=== PATIENT | female | born 1975 | race Caucasian/White ===

== ENCOUNTER 2021-01-28 11:36 | Inpatient (IN) | payer MEDICAID, SELFPAY ==
[2021-01-28] VITALS (8 sets, daily range): BP systolic 113–175; BP diastolic 62–109; PULSE 77–102; RESP 16–18; TEMP 35.8–37.4; O2SAT 95–98; BMI 25.7
--- NOTE | 2021-01-28 12:20 | ED.VIS.GEN ---
History of Present Illness Chief Complaint: Substance Abuse Informant: Patient Narrative: Patient presents requesting detox from alcohol. She states has been drinking regularly for the last for 5 months. She will drink about 1/2 gallon of vodka a day. She states that she does not drink for a day or 2 she will get shaky and nauseated. Her last drink was 2 and half hours ago and states that she feels tired, has a headache, feels shaky, and is nauseated. Patient has never been through detox previously. - Past Medical History (1) Diabetes Status: Chronic Past Medical History - Allergies and Home Meds Allergies/Adverse Reactions: Allergies azithromycin Allergy (Verified 01/28/21 11:38) Hives Primary Care Physician: Sofia Acevedo MD [Primary Care Provider] - Lives: Spouse/ Significant Other Smoking Status: Current every day smoker Review of Systems General: Denies: Chills, Fever Eyes: Denies: Visual changes - bilaterally ENT: Denies: Bilateral ear pain Cardiovascular: Denies: Chest pain Respiratory: Denies: Dyspnea, Cough Gastrointestinal: Reports: Nausea. Denies: Abdominal pain Genitourinary: Denies: Dysuria Musculoskeletal: Denies: Swelling, Extremity Pain Skin: Denies: Rash Neurological: Reports: Headache Hematologic: Denies: Easy bruising, Easy bleeding Allergy: Denies: Uticaria Physical Exam Vital Signs/Narrative: Vital Signs Temp Pulse Resp BP Pulse Ox 01/28/21 11:38 96.5 F L 102 H 18 140/80 H 95 Inital Vital Signs reviewed: Yes General: Well nourished, Well developed Head: Normocephalic Neck: Supple Cardiovascular: Regular rate, Regular rhythm Respiratory: No distress, CTA bilaterally Abdomen: Soft, Nontender, Normal bowel sounds Extremities: Nontender Skin: Normal color Neurological: Alert, Oriented x3 Psychological: Normal affect Diagnostic/Tx/Re-eval Laboratory Results 01/28/21 01/28/21 01/28/21 12:45 12:45 12:45 WBC 8.3 RBC 4.32 Hgb 16.0 H Hct 46.0 MCV 106.5 H MCH 37.0 H MCHC 34.8 RDW Std Deviation 48.1 H RDW Coeff of Chucho 12.0 Plt Count 242 MPV 9.2 Immature Gran % (Auto) 0.700 Neut % (Auto) 50.4 Lymph % (Auto) 39.2 [place] % (Auto) 6.5 Eos % (Auto) 1.9 Baso % (Auto) 1.3 H Absolute Neuts (auto) 4.2 Absolute Lymphs (auto) 3.27 Nucleated RBC % 0 Sodium 138 Potassium 3.8 Chloride 103 Carbon Dioxide 25.0 Anion Gap 10 BUN 7 Creatinine 0.51 L Estim Creat Clear Calc 117.76 Est GFR (MDRD) Af Amer 165 Est GFR (MDRD) Non-Af 137 BUN/Creatinine Ratio 13.7 Glucose 136 H Calcium 9.3 Total Bilirubin 0.40 AST 179 H ALT 113 H Alkaline Phosphatase 110 Total Protein 8.4 H Albumin 3.7 Globulin 4.7 H Albumin/Globulin Ratio 0.8 L Serum , Qual Urine Opiates Screen Urine Methadone Screen Ur Barbiturates Screen Ur Phencyclidine Scrn Ur Amphetamines Screen U Methamphetamin-MDMA U Benzodiazepines Scrn Urine Cocaine Screen U Cannabinoids Screen Ur Drug Screen Comment Ethyl Alcohol 17.0 01/28/21 01/28/21 12:45 13:10 WBC RBC Hgb Hct MCV MCH MCHC RDW Std Deviation RDW Coeff of Chucho Plt Count MPV Immature Gran % (Auto) Neut % (Auto) Lymph % (Auto) [place] % (Auto) Eos % (Auto) Baso % (Auto) Absolute Neuts (auto) Absolute Lymphs (auto) Nucleated RBC % Sodium Potassium Chloride Carbon Dioxide Anion Gap BUN Creatinine Estim Creat Clear Calc Est GFR (MDRD) Af Amer Est GFR (MDRD) Non-Af BUN/Creatinine Ratio Glucose Calcium Total Bilirubin AST ALT Alkaline Phosphatase Total Protein Albumin Globulin Albumin/Globulin Ratio Serum , Qual NEGATIVE Urine Opiates Screen NEGATIVE Urine Methadone Screen NEGATIVE Ur Barbiturates Screen NEGATIVE Ur Phencyclidine Scrn NEGATIVE Ur Amphetamines Screen NEGATIVE U Methamphetamin-MDMA NEGATIVE U Benzodiazepines Scrn NEGATIVE Urine Cocaine Screen NEGATIVE U Cannabinoids Screen NEGATIVE Ur Drug Screen Comment Ethyl Alcohol - Medical Decision Making Patient was given Zofran and Ativan to help with her symptoms here. Blood work is obtained. She does have elevation in her liver function test. Patient has agreed to the requirements for detox on the floor. Patient will be discussed with the hospitalist. ED Disposition - Plan for ED Patient: Disposition: Acute Care Hospital [facility] Diagnosis: Desire for detoxification, Alcohol abuse Referrals: Sofia Acevedo MD [Primary Care Provider] -
[2021-01-28 12:57] LABS: Absolute Lymphocyte Count 3.27 X10^3/uL (0.83-4.51); Absolute Neutrophil Count 4.2 X10^3/uL (2.0-7.7); Basophil# 0.11 X10^3/uL; Basophil% 1.3 % (0-1); Eosinophil# 0.16 X10^3/uL; Eosinophils% 1.9 % (0-5); Lymphocyte # 3.27 X10^3/ul (4.0); Lymphocyte % 39.2 % (19-41); Mean Corp Hgb Conc 34.8 g/dL (32-36); Mean Corpuscular Volume 106.5 fL (81-99); Mean Platelet Vol. 9.2 fl (6.2-12.0); Monocyte# 0.54 X10^3/uL; Monocyte% 6.5 % (0-10); NRBC Flagged by Analyzer 0 % (0-5); Neutrophil % 50.4 % (47-70); Platelet Count 242 K/mm3 (150-450); RBC Distribution Width SD 48.1 fl (35.1-43.9); Red Blood Count 4.32 M/mm3 (4.2-5.4); White Blood Count 8.3 K/mm3 (4.4-11.0)
[2021-01-28 13:11] LABS: ALB/GLOB Ratio 0.8 RATIO (0.9-2.4); AST(SGOT) 179 U/L (15-37); Alanine Aminotransfer ALT/SGPT 113 U/L (13-56); Albumin, Serum 3.7 g/dL (3.2-5.0); Alkaline Phosphatase 110 U/L (45-117); Anion Gap 10 (5-15); BUN 7 mg/dL (7-18); BUN/Creat Ratio 13.7 RATIO (10-20); Calcium,Total 9.3 mg/dL (8.5-10.1); Chloride 103 mmol/L (98-107); Creatinine, Serum 0.51 mg/dL (0.55-1.02); EST Glomerular Filtration Rate 137 mL/min (>60); Est Glom Filt Rate - Afr Amer 165 mL/min (>60); Estimated Creatinine Clearance 117.76 ml/min; Globulin 4.7 g/dL (2.2-4.2); Glucose 136 mg/dL (74-106); Potassium 3.8 mmol/L (3.5-5.1); Protein, Total 8.4 g/dL (6.4-8.2); Sodium Level 138 mmol/L (136-145)
[2021-01-28 13:26] LABS: Internal QC Validated? YES +Cl - CLEAR BKGD
[2021-01-28 13:30] LABS: Pregnancy, Serum, hCG Quali. NEGATIVE Negative
[2021-01-28 13:30] LABS: Amphetamine Urine VISTA NEGATIVE (<1000 ng/mL); Barbiturate Urine VISTA NEGATIVE (< 200 ng/mL); Benzodiazepine Urine VISTA NEGATIVE (< 200 ng/mL); Cocaine Urine VISTA NEGATIVE (< 300 ng/mL); Ecstacy Urine VISTA NEGATIVE (< 500 ng/mL); Methadone Urine VISTA NEGATIVE (< 300 ng/mL); PCP Urine VISTA NEGATIVE (< 25 ng/mL); THC Urine VISTA NEGATIVE (< 50 ng/mL); Vista UDS pH Range 5
[2021-01-28] MEDS: LORazepam 2 MG/ML Syringe 1 MG IV (13:46)
[2021-01-28] MEDS: Ondansetron 4 MG/2 ML Vial IV (13:46)
--- NOTE | 2021-01-28 14:50 | HP.PCM_ITS ---
Problem List (1) Acute alcohol withdrawal Status: Acute (2) Tobacco abuse Status: Chronic (3) Alcohol abuse Status: Chronic (4) Type 2 diabetes mellitus Status: Chronic History of Present Illness Date of Admission: 01/28/21 Chief Complaint: Requesting admission for acute alcohol withdrawal. The patient is a 45 year old F with past medical history as mentioned above presented to the emergency room requesting admission for acute alcohol withdrawal for medical stabilization. Patient states that she has been drinking half a gallon of vodka every day for the last 5 months. Before that, she has been using for long time but intermittently. Her last drink was this morning around 7 AM. She complained of restlessness, associated with abdominal cramps without nausea or vomiting. She never went into detox program before. She denied use of street drugs. She had history of type 2 diabetes mellitus, has been on Metformin but she mentioned that her blood glucose has been high lately because she has been drinking every day. In the emergency department, her vital signs were stable. Her routine blood work was unremarkable. LFT revealed slight elevated liver transaminases, bilirubin and alk phos are normal. Serum test was negative. Urine drug screen was negative. Blood alcohol level was 17. She is being admitted for acute alcohol withdrawal for medical stabilization. Past Medical History Past Medical History (Chronic Problems): Chronic Problems Tobacco abuse (Chronic) Alcohol abuse (Chronic) Type 2 diabetes mellitus (Chronic) Allergies azithromycin Allergy (Verified 01/28/21 11:38) Hives Home Medications: Ambulatory Orders Medication Instructions Recorded Metformin HCl 1,000 mg PO DAILY 01/28/21 Surgical History: cholecystectomy, - - Tubal ligation. Psychiatric History: No pertinent psych hx [employer] History: No pertinent [employer] history Lives: Spouse/ Significant Other Smoking Status: Current every day smoker Tobacco Use: Cigarettes Alcohol: Heavy Drugs: None - *Family History Maternal History Items: No pertinent history Paternal History Items: No pertinent history Review of Systems Constitutional: Denies: Anorexia, Chills, Fever, Weakness Eyes: Denies: Blurred vision, Double vision, Drainage, Redness HEENT: Denies: Difficulty Hearing, Ear Pain, Eye Pain, Nasal Congestion, Sore Throat Cardiovascular: Denies: Chest Pain, Claudication, Chest Tightness, Heaviness, Palpitations, Syncope Respiratory: Denies: Cough, Hemoptysis, Shortness of Breath, Sputum production, Wheezing Gastrointestinal: Reports: Nausea. Denies: Abdominal Pain, Constipation, Diarrhea, Vomiting Genitourinary: Denies: Dysuria, Frequency, Hematuria Musculoskeletal: Denies: Arm Pain, Back Pain, Foot Pain Skin: Denies: Dryness, Rash Neurological: Denies: Balance problems, Double vision, Change in Speech, Slurred speech, Confusion, Headaches, Incoordination Psychiatric: Denies: Anxiety, Depression Endocrine: Denies: Change in Body Habitus, Polydipsia, Polyuria VTE Information - Inpt Only VTE Present on Admission: No VTE Mechan Device Prophylaxis: None VTE Pharm Prophylaxis ordered?: No - Physical Exam Vitals/I&O's: Vital Signs Temp Pulse Resp BP Pulse Ox 98.5 F 77 16 121/72 H 97 01/28/21 13:21 01/28/21 13:50 01/28/21 13:50 01/28/21 13:50 01/28/21 13:50 Oxygen Delivery Method Room Air Weight: 150 lb Body Mass Index (BMI) 25.7 General: Alert, Oriented x3, Cooperative, No apparent distress HEENT: Atraumatic, PERRLA, EOMI, Normocephalic Oral: Moist Mucosa, No Gingival or Mucosal Lesions/ Ulcerations Neck: Supple, No JVD, Negative Carotid Bruits, Trachea Midline, Thyroid Normal Size and Texture Lungs: Clear to auscultation, Normal air movement, No rhonchi, No wheeze, No rales Cardiovascular: Regular rate, Regular Rhythm, Normal S1, Normal S2, PMI Normal Abdomen: Bowel Sounds Present, Soft, Non Tender, Non-Distended, No Hepato- splenomegaly Extremities: No clubbing, No cyanosis, No edema Skin: No rashes, No breakdown Lymphatic: No Cervical, Supraclavicular, or Inguinal Adenopathy Neurological: Cranial nerves II-XII grossly intact, Motor Exam 5/5 strength throughout Psych/Mental Status: Normal Affect, Appropriate, Alert and oriented to time, place, person, mood and affect Laboratory Results 01/28/21 12:45: WBC 8.3, RBC 4.32, Hgb 16.0 H, Hct 46.0, MCV 106.5 H, MCH 37.0 H , MCHC 34.8, RDW Std Deviation 48.1 H, RDW Coeff of Chucho 12.0, Plt Count 242, MPV 9.2, Immature Gran % (Auto) 0.700, Neut % (Auto) 50.4, Lymph % (Auto) 39.2, [place] % (Auto) 6.5, Eos % (Auto) 1.9, Baso % (Auto) 1.3 H, Absolute Neuts (auto) 4.2, Absolute Lymphs (auto) 3.27, Nucleated RBC % 0 01/28/21 12:45: Sodium 138, Potassium 3.8, Chloride 103, Carbon Dioxide 25.0, Anion Gap 10, BUN 7, Creatinine 0.51 L, Estim Creat Clear Calc 117.76, Est GFR (MDRD) Af Amer 165, Est GFR (MDRD) Non-Af 137, BUN/Creatinine Ratio 13.7, Glucose 136 H, Calcium 9.3, Total Bilirubin 0.40, AST 179 H, ALT 113 H, Alkaline Phosphatase 110, Total Protein 8.4 H, Albumin 3.7, Globulin 4.7 H, Albumin/Globulin Ratio 0.8 L 01/28/21 12:45: Ethyl Alcohol 17.0 01/28/21 12:45: Serum , Qual NEGATIVE 01/28/21 13:10: Urine Opiates Screen NEGATIVE, Urine Methadone Screen NEGATIVE, Ur Barbiturates Screen NEGATIVE, Ur Phencyclidine Scrn NEGATIVE, Ur Amphetamines Screen NEGATIVE, U Methamphetamin-MDMA NEGATIVE, U Benzodiazepines Scrn NEGATIVE, Urine Cocaine Screen NEGATIVE, U Cannabinoids Screen NEGATIVE, Ur Drug Screen Comment Assessment/Plan All Active Problems Acute alcohol withdrawal (Acute) This is a 45 years old female patient presented to the emergency room requesting admission for acute alcohol withdrawal for medical stabilization. #1 acute alcohol withdrawal: Blood alcohol level is 17, last drink was this morning. Urine drug screen was negative. LFT revealed slight elevated liver transaminases secondary to alcoholism. Plan: Admit to MedSurg floor, initiate alcohol withdrawal protocol with tapering phenobarbital, thiamine and folic acid supplement, as needed Bentyl, Neurontin, Vistaril, ibuprofen, Imodium, Zofran and trazodone, consult 180 program. #2 type 2 diabetes mellitus: ADA diet, Accu-Cheks, insulin sliding scale, continue Metformin, check hemoglobin A1c. #3 tobacco abuse: NicoDerm patch. #4 DVT prophylaxis: Low risk patient, no prophylaxis indicated. This note was generated with Maria T dictation software. It may contain incorrect words, spelling, and punctuation that were not noted in checking the note before signing. Inpatient E&M: 33504 Init Hosp L2
--- NOTE | 2021-01-28 15:01 | NURSING ---
MED SURG DAVID DESIRE FOR DETOX, ALCOHOL ABUSE
--- NOTE | 2021-01-28 15:05 | CM.ED ---
SOCIAL WORK Referral Source: Dr. Trujillo Reason for Consult: Substance Abuse-requesting alcohol detox Met with patient in room. Patient reports significant other just completed detox and patient decided it's my turn. Patient states last drink was this morning prior to arrival. Education provided on RAMP. Call to [facility] to update on admission to [facility]. Plan: MARIE Guerrero MSW, [employer]
[2021-01-28] MEDS: Phenobarbital 32.4 MG Tablet 64.8 MG PO ×2 (16:20→19:44)
[2021-01-28 16:31] LABS: Bedside Glucose 140 mg/dL (70-110)
[2021-01-28 20:23] LABS: Hemoglobin A1c 5.7 % (3.8-5.6)
[2021-01-28] MEDS: Insulin Lispro 100 UNIT/ML INSULN.PEN SC (22:18)
[2021-01-28 23:36] LABS: Bedside Glucose 175 mg/dL (70-110)
[2021-01-29] MEDS: Phenobarbital 32.4 MG Tablet 64.8 MG PO ×6 (00:15→19:57)
[2021-01-29 03:10] VITALS: BP 120/81; PULSE 71; RESP 16; TEMP 36.7; O2SAT 96
[2021-01-29 06:00] VITALS: BP 132/81; PULSE 70; RESP 16; TEMP 36.9; O2SAT 98
[2021-01-29] MEDS: Ibuprofen 600 MG Tablet PO ×2 (06:35→19:57)
[2021-01-29] MEDS: hydrOXYzine PAM 25 MG Capsule 50 MG PO ×3 (06:36→19:57)
[2021-01-29] MEDS: Insulin Lispro 100 UNIT/ML INSULN.PEN SC ×4 (06:37→20:01)
[2021-01-29 06:55] LABS: Bedside Glucose 193 mg/dL (70-110)
[2021-01-29 09:20] VITALS: BP 112/65; PULSE 80; RESP 16; TEMP 36.8; O2SAT 92
--- NOTE | 2021-01-29 09:25 | NURSING ---
pt states she has received her first dose of COVID moderna vaccine on January 17, 2021 and is due for second shot on February 07 2021.
[2021-01-29] MEDS: metFORMIN HCl 1,000 MG Tablet 1000 MG PO (09:29)
[2021-01-29] MEDS: Gabapentin 300 MG Capsule PO (09:29)
[2021-01-29] MEDS: Thiamine Hydrochloride 100 MG Tablet PO (09:30)
[2021-01-29] MEDS: Folic Acid 1 MG Tablet PO (09:30)
[2021-01-29 11:40] LABS: Bedside Glucose 191 mg/dL (70-110)
[2021-01-29 12:37] VITALS: BP 112/66; PULSE 79; RESP 16; TEMP 36.8; O2SAT 96
[2021-01-29] MEDS: Dicyclomine 10 MG Capsule 20 MG PO ×2 (12:41→19:56)
--- NOTE | 2021-01-29 15:20 | PCM.PN.HOSP ---
Patient Problems: Active and Suspected Problems Desire for detoxification (Acute) Alcohol abuse (Acute) Acute alcohol withdrawal (Acute) Subjective: Seen early this morning. She states she still feeling jittery and agitated. Reports that she has been drinking very heavily with approximately 1/2 gallon of alcohol a day over the last 4 months. She reports that she had not been a heavy drinker prior to this but her fianc? was a heavy drinker and with Covid she just started drinking. Her fianc? is now clean and she states she has the desire to stay sober as well. Vitals/I&O's: Vital Signs Temp Pulse Resp BP Pulse Ox 98.2 F 79 16 112/66 96 01/29/21 12:37 01/29/21 12:37 01/29/21 12:37 01/29/21 12:37 01/29/21 12:37 Oxygen Delivery Method Room Air Weight: 68 kg Body Mass Index (BMI) 25.7 General: Alert, Oriented x3, Cooperative, No apparent distress, Well developed, Well nourished, - - Middle-aged white female who appears older than stated age, lying in bed, no obvious tremor or agitation HEENT: Atraumatic, Normocephalic Oral: Moist Mucosa Lungs: No rhonchi, No wheeze, No rales, Diminished Cardiovascular: Regular rate, Regular Rhythm, Normal S1, Normal S2 Abdomen: Bowel Sounds Present, Soft, Non Tender, Non-Distended Extremities: No clubbing, No cyanosis, No edema, Capillary Refill Less than 3 Seconds, Peripheral Pulses Normal Neurological: Cranial nerves II-XII grossly intact, Neuro grossly intact, - - No tremor noted Psych/Mental Status: Appropriate, Flat Affect Laboratory Results 01/28/21 12:45: Hemoglobin A1c 5.7 H 01/28/21 16:24: POC Glucose 140 H 01/28/21 22:13: POC Glucose 175 H 01/29/21 06:30: POC Glucose 193 H 01/29/21 11:25: POC Glucose 191 H Current Medications Dicyclomine HCl (Dicyclomine 10 Mg Capsule) 20 mg PO Q6H PRN PRN PRN Reason: abdominal discomfort Last Admin: 01/29/21 12:41 Dose: 20 mg Documented by: Folic Acid (Folic Acid 1 Mg Tablet) 1 mg PO DAILY@0800 FLORES Last Admin: 01/29/21 09:30 Dose: 1 mg Documented by: Gabapentin (Gabapentin 300 Mg Capsule) 300 mg PO Q8H PRN PRN PRN Reason: moderate to severe anxiety Last Admin: 01/29/21 09:29 Dose: 300 mg Documented by: Hydroxyzine Pamoate (Hydroxyzine Kortney 25 Mg Capsule) 50 mg PO Q4H PRN PRN PRN Reason: mild anxiety Last Admin: 01/29/21 12:41 Dose: 50 mg Documented by: Ibuprofen (Ibuprofen 600 Mg Tablet) 600 mg PO Q8H PRN PRN PRN Reason: PAIN 1-07/27 Last Admin: 01/29/21 06:35 Dose: 600 mg Documented by: Insulin Human Lispro (Insulin Lispro 100 Unit/Ml Insuln.Pen) 0 unit SC [facility]; Protocol Last Admin: 01/29/21 12:42 Dose: 1 unit Documented by: Loperamide HCl (Loperamide 2 Mg Capsule) 2 mg PO Q4H PRN PRN PRN Reason: LOOSE STOOLS Metformin HCl ([facility] Hcl 1,000 Mg Tablet) [facility] Last Admin: 01/29/21 09:29 Dose: 1,000 mg Documented by: Nicotine (Nicotine 21 Mg Patch) 21 mg TD DAILY [facility] Last Admin: 01/29/21 09:29 Dose: 21 mg Documented by: Ondansetron HCl (Ondansetron 8 Mg Tablet) 8 mg PO Q8H PRN PRN PRN Reason: NAUSEA Phenobarbital (Phenobarbital 32.4 Mg Tablet) 97.2 mg PO Q4H [facility]; Taper Stop: 02/01/21 23:59 Last Admin: 01/29/21 12:41 Dose: 97.2 mg Documented by: Sodium Chloride (0.9% Saline Lock 10 Ml Syringe) 10 - 40 ml IV UD PRN PRN Reason: SALINE FLUSH Thiamine HCl ([facility] Hydrochloride 100 Mg Tablet) [facility] Last Admin: 01/29/21 09:30 Dose: 100 mg Documented by: Trazodone HCl (Trazodone 100 Mg Tablet) 100 mg PO QHS PRN PRN Reason: INSOMNIA STROKE Vital Signs/Narrative: Vital Signs Temp Pulse Resp BP Pulse Ox 01/29/21 12:37 98.2 F 79 16 112/66 96 Medical Necessity - Tobacco Use Smoking Status: Current every day smoker Tobacco Use: Cigarettes Assessment/Plan All Active Problems Desire for detoxification (Acute) Alcohol abuse (Acute) Acute alcohol withdrawal (Acute) Acute alcohol withdrawal -Continue phenobarbital taper -Continue thiamine and folic acid -Continue supportive medications -180 will be in to evaluate patient Transaminitis -Pattern is consistent with alcoholic hepatitis -Repeat LFTs in a.m. Insulin resistance -Hemoglobin A1c was drawn and was 5.7 -Per patient she has been on Metformin in the past -With her history of alcoholism currently this may not be the best choice of drug and I would recommend diet control at this time -Change diet to carb control Tobacco abuse -Recommend cessation -Continue nicotine patch DVT prophylaxis -Low risk -Early ambulation protocol Inpatient E&M: 05226 Subs Hosp L2
[2021-01-29 16:27] VITALS: BP 111/73; PULSE 71; RESP 16; TEMP 36.9; O2SAT 95
[2021-01-29 16:35] LABS: Bedside Glucose 169 mg/dL (70-110)
[2021-01-29 20:06] VITALS: BP 114/74; PULSE 75; RESP 16; TEMP 36.1; O2SAT 99
[2021-01-29 20:31] LABS: Bedside Glucose 171 mg/dL (70-110)
[2021-01-30] MEDS: Phenobarbital 32.4 MG Tablet 64.8 MG PO ×6 (00:32→20:12)
[2021-01-30] MEDS: hydrOXYzine PAM 25 MG Capsule 50 MG PO ×2 (03:22→15:09)
[2021-01-30 03:24] VITALS: BP 102/64; PULSE 63; RESP 16; TEMP 36.2; O2SAT 96
[2021-01-30] MEDS: Insulin Lispro 100 UNIT/ML INSULN.PEN SC ×2 (06:33→21:48)
[2021-01-30 06:40] LABS: Bedside Glucose 156 mg/dL (70-110)
[2021-01-30 09:01] VITALS: BP 108/65; PULSE 72; RESP 16; TEMP 36.8; O2SAT 96
[2021-01-30] MEDS: metFORMIN HCl 1,000 MG Tablet 1000 MG PO (09:04)
[2021-01-30] MEDS: Thiamine Hydrochloride 100 MG Tablet PO (09:04)
[2021-01-30] MEDS: Folic Acid 1 MG Tablet PO (09:04)
--- NOTE | 2021-01-30 09:45 | ADDICTION ---
This inspector automatic typewriter met with PT to conduct ASAM, MSE, AUDIT assessments and to plan for d/c. PT A+Ox4. All assessments completed, faxed to [facility] and placed in PT's chart. PT refused d/c coordination. PT to d/c home with follow-up plans in place.
[2021-01-30 12:36] LABS: Bedside Glucose 126 mg/dL (70-110)
[2021-01-30 15:01] VITALS: BP 113/69; PULSE 83; RESP 16; TEMP 36.8; O2SAT 94
--- NOTE | 2021-01-30 16:25 | PN_ITS ---
Patient Problems: Active and Suspected Problems Desire for detoxification (Acute) Alcohol abuse (Acute) Acute alcohol withdrawal (Acute) Subjective: Indicates she is feeling better today. Still not back to baseline. Reports she needs a new nicotine patch placed as her fell off overnight. Vitals/I&O's: Vital Signs Temp Pulse Resp BP Pulse Ox 98.3 F 83 16 113/69 94 01/30/21 15:01 01/30/21 15:01 01/30/21 15:01 01/30/21 15:01 01/30/21 15:01 Oxygen Delivery Method Room Air Weight: 68 kg Body Mass Index (BMI) 25.7 General: Alert, Oriented x3, Cooperative, No apparent distress, Well developed, Well nourished, - - Middle-aged white female who appears older than stated age, lying in bed, appears comfortable, no tremor HEENT: Atraumatic, Normocephalic Oral: Moist Mucosa Neck: Supple, Trachea Midline Lungs: No rhonchi, No wheeze, No rales, Diminished Cardiovascular: Regular rate, Regular Rhythm, Normal S1, Normal S2, No murmurs, No Ectopic Activity, No rub noted, No Gallop Abdomen: Bowel Sounds Present, Soft, Non Tender, Non-Distended Extremities: No clubbing, No cyanosis, No edema, Capillary Refill Less than 3 Seconds, Peripheral Pulses Normal Neurological: Cranial nerves II-XII grossly intact, Neuro grossly intact Psych/Mental Status: Appropriate, Flat Affect Laboratory Results 01/29/21 16:25: POC Glucose 169 H 01/29/21 20:00: POC Glucose 171 H 01/30/21 06:32: POC Glucose 156 H 01/30/21 12:28: POC Glucose 126 H Current Medications Dicyclomine HCl (Dicyclomine 10 Mg Capsule) 20 mg PO Q6H PRN PRN PRN Reason: abdominal discomfort Last Admin: 01/29/21 19:56 Dose: 20 mg Documented by: Folic Acid (Folic Acid 1 Mg Tablet) 1 mg PO DAILY@0800 FLORES Last Admin: 01/30/21 09:04 Dose: 1 mg Documented by: Gabapentin (Gabapentin 300 Mg Capsule) 300 mg PO Q8H PRN PRN PRN Reason: moderate to severe anxiety Last Admin: 01/29/21 09:29 Dose: 300 mg Documented by: Hydroxyzine Pamoate (Hydroxyzine Kortney 25 Mg Capsule) 50 mg PO Q4H PRN PRN PRN Reason: mild anxiety Last Admin: 01/30/21 15:09 Dose: 50 mg Documented by: Ibuprofen (Ibuprofen 600 Mg Tablet) 600 mg PO Q8H PRN PRN PRN Reason: PAIN 1-07/27 Last Admin: 01/29/21 19:57 Dose: 600 mg Documented by: Insulin Human Lispro (Insulin Lispro 100 Unit/Ml Insuln.Pen) 0 unit SC [facility]; Protocol Last Admin: 01/30/21 12:30 Dose: Not Given Documented by: Loperamide HCl (Loperamide 2 Mg Capsule) 2 mg PO Q4H PRN PRN PRN Reason: LOOSE STOOLS Metformin HCl (Metformin Hcl 1,000 Mg Tablet) [facility] Last Admin: 01/30/21 09:04 Dose: 1,000 mg Documented by: Nicotine (Nicotine 21 Mg Patch) 21 mg TD DAILY [facility] Last Admin: 01/30/21 09:04 Dose: 21 mg Documented by: Ondansetron HCl (Ondansetron 8 Mg Tablet) 8 mg PO Q8H PRN PRN PRN Reason: NAUSEA Phenobarbital (Phenobarbital 32.4 Mg Tablet) 64.8 mg PO Q4H [facility]; Taper Stop: 02/01/21 23:59 Last Admin: 01/30/21 12:30 Dose: 64.8 mg Documented by: Sodium Chloride (0.9% Saline Lock 10 Ml Syringe) 10 - 40 ml IV UD PRN PRN Reason: SALINE FLUSH Thiamine HCl (Thiamine Hydrochloride 100 Mg Tablet) [facility] Last Admin: 01/30/21 09:04 Dose: 100 mg Documented by: Trazodone HCl (Trazodone 100 Mg Tablet) 100 mg PO QHS PRN PRN Reason: INSOMNIA STROKE Vital Signs/Narrative: Vital Signs Temp Pulse Resp BP Pulse Ox 01/30/21 15:01 98.3 F 83 16 113/69 94 Medical Necessity - Tobacco Use Smoking Status: Current every day smoker Tobacco Use: Cigarettes Assessment/Plan All Active Problems Desire for detoxification (Acute) Alcohol abuse (Acute) Acute alcohol withdrawal (Acute) Acute alcohol withdrawal -Continue phenobarbital taper--> currently on 64.8 mg every 4 hours -Continue thiamine and folic acid -Continue supportive medications -180 saw pt and she refused d/c coordination Transaminitis -Pattern is consistent with alcoholic hepatitis -Repeat LFTs in a.m. Insulin resistance -Hemoglobin A1c was drawn and was 5.7 -Per patient she has been on Metformin in the past -With her history of alcoholism currently this may not be the best choice of drug and I would recommend diet control at this time -Change diet to carb control Tobacco abuse -Recommend cessation -Continue nicotine patch DVT prophylaxis -Low risk -Early ambulation protocol Disposition Probable discharge in next 24 to 48 hours Inpatient E&M: 51556 Subs Hosp L2
[2021-01-30 16:40] LABS: Bedside Glucose 141 mg/dL (70-110)
[2021-01-30 20:53] VITALS: BP 116/66; PULSE 79; RESP 16; TEMP 37; O2SAT 97
[2021-01-30] MEDS: Ibuprofen 600 MG Tablet PO (21:47)
[2021-01-30] MEDS: traZODone 100 MG Tablet PO (21:48)
[2021-01-30 21:56] LABS: Bedside Glucose 237 mg/dL (70-110)
[2021-01-31] MEDS: Phenobarbital 32.4 MG Tablet 64.8 MG PO ×3 (00:35→11:41)
[2021-01-31 02:30] VITALS: BP 110/67; PULSE 78; RESP 16; TEMP 36.6; O2SAT 96
[2021-01-31 06:43] VITALS: BP 101/59; PULSE 61; RESP 16; TEMP 36.6; O2SAT 96
[2021-01-31 06:45] LABS: Bedside Glucose 141 mg/dL (70-110)
[2021-01-31] MEDS: Thiamine Hydrochloride 100 MG Tablet PO (08:21)
[2021-01-31] MEDS: metFORMIN HCl 1,000 MG Tablet 1000 MG PO (08:21)
[2021-01-31] MEDS: Folic Acid 1 MG Tablet PO (08:21)
[2021-01-31 11:30] VITALS: BP 104/68; PULSE 71; RESP 18; TEMP 36.7; O2SAT 97
--- NOTE | 2021-01-31 11:37 | DCINST_ITS ---
- Discharge Diagnoses Current Active Problems: Current Active and Chronic Problems Desire for detoxification (Acute) Alcohol abuse (Acute) Acute alcohol withdrawal (Acute) Tobacco abuse (Chronic) Alcohol abuse (Chronic) Type 2 diabetes mellitus (Chronic) You will use the following diet at home:: Calorie/Carbohydrate Controlled (specify 1200, 1400, etc) Your food should be the consistency of: Regular Your liquids should be the consistency of: Regular/Thin Discharge Activity: Return to Normal Activity, No Restrictions Allergies/Adverse Reactions: Allergies azithromycin Allergy (Verified 01/28/21 11:38) Hives Medications to take at Discharge Metformin HCl 1,000 mg PO DAILY 01/28/21 Primary Care Physician: Sofia Acevedo MD [Primary Care Provider] - Please follow up with your Primary Care Physician in: As needed Test Results: Test results from this visit will be discussed in further detail at your follow- up appointment, if applicable.
--- NOTE | 2021-01-31 11:41 | DS.PCM_ITS ---
Discharge Date and Diagnosis - Problem List Patient Problems: Active and Suspected Problems Desire for detoxification (Acute) Alcohol abuse (Acute) Acute alcohol withdrawal (Acute) Date of Admission: 01/28/21 Date of Discharge: 01/31/21 - Primary Discharge Diagnosis Acute Problems: Active Problems Desire for detoxification (Acute) Alcohol abuse (Acute) Acute alcohol withdrawal (Acute) - Secondary Discharge Diagnosis Chronic Problems: Chronic Problems Tobacco abuse (Chronic) Alcohol abuse (Chronic) Type 2 diabetes mellitus (Chronic) Hospital Course and Treatment Imaging Results: None Addiction medicine Operations: None Procedures: None Summary of Care Provided: Ms. Williamson is a 45-year-old female with a past medical history of diabetes, tobacco abuse, and alcohol abuse presented to the emergency department at [facility] on 01/28/2021 requesting admission for acute alcohol detox/withdrawal. On admission she stated that she had been drinking at least a half a gallon of vodka every day for the last 4 to 5 months. Before that she had been a longtime intermittent user of alcohol but nothing significant. Her last drink was on the day of admission at around 7 AM. On admission she complained of restlessness, abdominal cramping without nausea or vomiting and tremor. She had never been through detox before. She denied any other substance abuse but does admit to smoking tobacco. Alcohol on the admission was 17 and her tox screen was negative for any other substances. She was admitted to the medical surgical floor and started on a phenobarb taper with supportive medications. She was seen by [facility] addiction medicine and declined help from them. She tells me she will follow-up with her friends who are very supportive in her mormonism. She requested to be discharged on 01/31/2021 and states she was really having any further symptoms of withdrawal. She had completed phenobarb taper until the point where she was on 64.8 mg every 6 hours. I suspect she will do well overall with the long half-life of phenobarbital but instructed her if she has any further issues to please come back and get help. Discharge diagnoses Acute alcohol withdrawal Alcoholic hepatitis DM-2 Tobacco abuse Patient Problems: Active and Suspected Problems Desire for detoxification (Acute) Alcohol abuse (Acute) Acute alcohol withdrawal (Acute) Subjective: Patient states she is feeling well. Denies tremor, nausea, vomiting. No further abdominal cramping. She states she feels anxious about going home but no anxiety related to withdrawal any further. She indicates that she will follow up with her mormonism and friends for support and declines any help from [facility]. - Physical Exam Vitals/I&O's: Vital Signs Temp Pulse Resp BP Pulse Ox 98.0 F 71 18 104/68 97 01/31/21 11:30 01/31/21 11:30 01/31/21 11:30 01/31/21 11:30 01/31/21 11:30 Oxygen Delivery Method Room Air Weight: 68 kg Body Mass Index (BMI) 25.7 General: Alert, Oriented x3, Cooperative, No apparent distress, Well developed, Well nourished, - - Middle-aged white female lying in bed, appears comfortable, appears older than stated age HEENT: Atraumatic, Normocephalic Oral: Moist Mucosa Neck: Supple, Trachea Midline Lungs: Clear to auscultation, No rhonchi, No wheeze, No rales, Diminished Cardiovascular: Regular rate, Regular Rhythm, Normal S1, Normal S2, No murmurs, No Ectopic Activity, No rub noted, No Gallop Abdomen: Bowel Sounds Present, Soft, Non Tender, Non-Distended, No Hepato- splenomegaly Extremities: No clubbing, No cyanosis, No edema, Capillary Refill Less than 3 Seconds, Peripheral Pulses Normal Neurological: Cranial nerves II-XII grossly intact, Neuro grossly intact Psych/Mental Status: Normal Affect, Appropriate Laboratory Results 01/30/21 12:28: POC Glucose 126 H 01/30/21 16:30: POC Glucose 141 H 01/30/21 21:43: POC Glucose 237 H 01/31/21 06:38: POC Glucose 141 H Current Medications Dicyclomine HCl (Dicyclomine 10 Mg Capsule) 20 mg PO Q6H PRN PRN PRN Reason: abdominal discomfort Last Admin: 01/29/21 19:56 Dose: 20 mg Documented by: Folic Acid (Folic Acid 1 Mg Tablet) 1 mg PO DAILY@0800 FLORES Last Admin: 01/31/21 08:21 Dose: 1 mg Documented by: Gabapentin (Gabapentin 300 Mg Capsule) 300 mg PO Q8H PRN PRN PRN Reason: moderate to severe anxiety Last Admin: 01/29/21 09:29 Dose: 300 mg Documented by: Hydroxyzine Pamoate (Hydroxyzine Kortney 25 Mg Capsule) 50 mg PO Q4H PRN PRN PRN Reason: mild anxiety Last Admin: 01/30/21 15:09 Dose: 50 mg Documented by: Ibuprofen (Ibuprofen 600 Mg Tablet) 600 mg PO Q8H PRN PRN PRN Reason: PAIN 1-07/27 Last Admin: 01/30/21 21:47 Dose: 600 mg Documented by: Insulin Human Lispro (Insulin Lispro 100 Unit/Ml Insuln.Pen) 0 unit SC [facility]; Protocol Last Admin: 01/31/21 06:41 Dose: Not Given Documented by: Loperamide HCl (Loperamide 2 Mg Capsule) 2 mg PO Q4H PRN PRN PRN Reason: LOOSE STOOLS Metformin HCl (Met[facility] Hcl 1,000 Mg Tablet) [facility] Last Admin: 01/31/21 08:21 Dose: 1,000 mg Documented by: Nicotine (Nicotine 21 Mg Patch) 21 mg TD DAILY [facility] Last Admin: 01/31/21 08:22 Dose: 21 mg Documented by: Ondansetron HCl (Ondansetron 8 Mg Tablet) 8 mg PO Q8H PRN PRN PRN Reason: NAUSEA Phenobarbital (Phenobarbital 32.4 Mg Tablet) 64.8 mg PO Q6H [facility]; Taper Stop: 02/01/21 23:59 Last Admin: 01/31/21 06:39 Dose: 64.8 mg Documented by: Sodium Chloride (0.9% Saline Lock 10 Ml Syringe) 10 - 40 ml IV UD PRN PRN Reason: SALINE FLUSH Thiamine HCl (Thiamine Hydrochloride 100 Mg Tablet) [facility] Last Admin: 01/31/21 08:21 Dose: 100 mg Documented by: Trazodone HCl (Trazodone 100 Mg Tablet) 100 mg PO QHS PRN PRN Reason: INSOMNIA Last Admin: 01/30/21 21:48 Dose: 100 mg Documented by: Discharge Activity: Return to Normal Activity, No Restrictions Home Medications: Medications to take at Discharge Metformin HCl 1,000 mg PO DAILY 01/28/21 Primary Care Physician: Sofia Acevedo MD [Primary Care Provider] - Please follow up with your Primary Care Physician in: As needed Medical Necessity - Tobacco Use Smoking Status: Current every day smoker Tobacco Use: Cigarettes Meaningful Use Info Meaningful Use Diagnoses (Choose all that apply): None applicable Inpatient E&M: 38474 [facility]
[2021-01-31] MEDS: Insulin Lispro 100 UNIT/ML INSULN.PEN SC (11:42)
--- NOTE | 2021-01-31 12:35 | CASEMGMT ---
LOTUS MANUEL notified by nurse Tate that pt does not have a BGM at home. LOTUS MANUEL in to pt room. Pt is requesting BGM and supplies. She also states she is interested in seeing the billet grinder in the [facility]. TC to office and requested order be faxed to [facility]. Obtained rx for BGM and supplies and given to pt. Pt is aware of [employer] brand glucometer in which the meter and supplies are less than $20, should the one through her insurance cost her more than that. Pt also aware that the pharmacist is available to go over the use of the machine with her. Pt denies further questions.
[2021-01-31 14:21] LABS: Bedside Glucose 214 mg/dL (70-110)
== END 2021-01-31 13:48 | disposition home or self-care (01) | DRG 775 ==
LOC: ED 14:20 → MS3 14:55
PROVIDERS: Admitting Provider Hospitalist; Emergency Provider Emergency Medicine; PCP Internal Medicine; Visit Provider Internal Medicine
DX: F10.239 Alcohol dependence with withdrawal, unspecified (principal); Y90.0 Blood alcohol level of less than 20 mg/100 ml; K70.10 Alcoholic hepatitis without ascites; E88.81 Metabolic syndrome and other insulin resistance; E11.9 Type 2 diabetes mellitus without complications; F17.210 Nicotine dependence, cigarettes, uncomplicated; Z79.84 Long term (current) use of oral hypoglycemic drugs
CPT/HCPCS: 80053; 80307; 82077; 82962; 83036; 84703; 85025; 99284; A4216; J2405

== ENCOUNTER 2023-04-23 13:35 | Emergency (ER) | payer MEDICAID, SELFPAY ==
[2023-04-23 13:36] VITALS: BP 119/70; PULSE 76; RESP 16; TEMP 36.6; O2SAT 98; BMI 25.0
--- NOTE | 2023-04-23 13:49 | EDS_ITS ---
HPI History of Present Illness Chief Complaint: Dental Detail of Chief Complaint: Dental pain Informant: patient Narrative Narrative: Patient presents emergency department complaint of dental pain. Patient states that she has had pain for about 4 days. Patient states her right lower molar broke 4 days ago while chewing. She has an appointment to see a dentist but not for another 6 days. She denies any fevers or chills or sweats. She complains of significant pain at times radiates to her right ear. [facility] Medical History (Updated 05/01/23 @ 00:05 by Aby Logan) Diabetes Home Medications metformin 500 mg tablet 1,000 mg PO DAILY 01/28/21 [History Last Taken Unknown] amoxicillin 500 mg tablet 500 mg PO TID #30 tabs 04/23/23 [Rx Last Taken Unknown] hydrocodone-acetaminophen 5-325mg 5mg-325mg 1 tab PO Q4H PRN PRN Pain 2 days #14 TABLETS 04/23/23 [Rx Last Taken Unknown] Allergy/AdvReac Type Severity Reaction Status Date / Time azithromycin Allergy Hives Verified 04/23/23 13:40 Social History Smoking Status: Current every day smoker tobacco type: cigarettes ROS ROS ED Review of Systems ROS Unobtainable: other Constitutional Constitutional ED: Reports lethargy; Denies chills, fever(s), sweats or weight loss Eyes Eyes: Denies blurry vision, change in vision or diplopia ENT ENT ED: Reports other Details: Dental pain ; Denies rhinorrhea or sore throat Cardiovascular Cardiovascular: Denies chest pain, orthopnea or racing heartbeat Respiratory/Chest Respiratory/Chest: Denies cough, dyspnea, dyspnea on exertion, orthopnea or sputum Gastrointestinal Gastrointestinal: Denies abdominal pain, diarrhea, nausea or vomiting Genitourinary Genitourinary ED: Denies dysuria, hematuria or urinary frequency Musculoskeletal Musculoskeletal: Denies arthralgias, back pain, myalgias or neck pain Integumentary Denies abscess, Abrasions or rash Neurologic Neurologic: Denies headache(s) or weakness Psychiatric Psychiatric: Denies anxiety, depression or suicidal thoughts Endocrine Endocrinology: Denies polydipsia, polyphagia or polyuria Hematologic/Lymphatic Hematologic/Lymphatic: Denies easy bleeding, easy bruising or lymphadenopathy Allergic/Immunologic Allergic/Immunologic ED: Denies mouth swelling, tongue swelling or urticaria EXAM Physical Exam Const Vital Signs: 04/23/23 13:36 Temperature 98 F Temperature Source Temporal Pulse Rate 76 Respiratory Rate 16 Blood Pressure 119/70 Blood Pressure Mean 86 Pulse Ox 98 Oxygen Delivery Method Room Air Positive well nourished and well developed General Appearance ED: well developed and NAD HEENT Reports TM's clear and moist mucous membranes HEENT Narrative: Dentition-patient has a broken right lower molar #31 is tender to palpation. No gingival erythema or abscess noted. Patient also has a broken left lower molar #20 is tender to palpation. No facial erythema or cellulitis normocephalic and atraumatic; Negative for trauma or tenderness Tympanic Membrane ED: Yes TM's clear Eyes PERRL and EOMs intact bilaterally General Eye ED: Negative for pale conjunctiva or scleral icterus Neck no lymphadenopathy, supple and no JVD General: Negative for tenderness Chest Wall inspection of chest normal and palpation of chest normal Chest: Negative for tenderness Resp normal respiratory effort and clear to auscultation bilaterally Effort and Inspection: Negative for respiratory distress or pain with movement Auscultation: Negative for rhonchi, wheezes or diminished lung sounds Cardio regular rate, regular rhythm, S1 normal heart sound, S2 normal heart sound and no murmurs Peripheral Pulses: pulses 2+ throughout GI normal to inspection, nondistended, normoactive bowel sounds, soft to palpation, non-tender, non-distended and no masses Back/Spine no CVA tenderness and no thoracic nor lumbar tenderness Extremity normal to inspection General Extremety ED: Negative for edema General Extremity: Negative for edema Neuro oriented x3, CN's II-XII intact bilaterally, no sensory deficits noted and gait normal Sensorium / Orientation: awake, alert, oriented to person, oriented to place and oriented to time Motor Exam: strength 5/5 throughout and strength abnormal Psych mental status grossly normal Skin no rashes or lesions noted and no wounds MDM MDM MDM Narrative Medical decision making narrative: Patient will be given a prescription for amoxicillin and [place] for pain. Patient advised to follow-up with her dentist at the earliest possible time Discharge Plan Triage Chief Complaint: Dental ED Provider: Terrell Wagner Dx/Rx/DC Orders Clinical Impression: Pain, dental Instructions: ED Dental Pain Prescriptions: New hydrocodone-acetaminophen [hydrocodone-acetaminophen] 5-325 mg tablet 1 tab PO Q4H PRN PRN (Reason: Pain) 2 Days Qty: 14 0RF amoxicillin 500 mg tablet 500 mg PO TID Qty: 30 0RF No Action metformin 500 MG tablet 1,000 mg PO DAILY Primary Care Provider: Sofia Acevedo Referrals: Sofia Acevedo MD [Primary Care Provider] - Activity Restrictions/Additional Instructions: Follow-up with your dentist at the earliest possible time. Disposition Disposition: Home, Self Care Discharge Date/Time: 04/23/23 14:10
== END 2023-04-23 14:10 | disposition home or self-care (01) ==
LOC: ED 13:58
PROVIDERS: Emergency Provider Emergency Medicine; PCP Internal Medicine; Visit Provider Emergency Medicine
DX: K08.89 Other specified disorders of teeth and supporting structures (principal); E11.9 Type 2 diabetes mellitus without complications; S02.5XXA Fracture of tooth (traumatic), initial encounter for closed fracture; F17.210 Nicotine dependence, cigarettes, uncomplicated; Z79.84 Long term (current) use of oral hypoglycemic drugs
CPT/HCPCS: 99282

== ENCOUNTER 2023-12-03 20:31 | Observation (INO) | payer MEDICAID, SELFPAY ==
[2023-12-03 20:32] VITALS: BP 120/65; PULSE 79; RESP 18; TEMP 36.6; O2SAT 97; BMI 12.7
--- NOTE | 2023-12-03 20:44 | CT_ITS ---
We are attempting to reach an attending provider to discuss findings. An addendum with communication details will be sent when the communication is complete. INDICATION: fall, rib pain EXAMINATION: CT CHEST WITHOUT CONTRAST - CT Chest W/O Contrast Injection TECHNIQUE: Helically acquired images were obtained of the chest. A radiation dose optimization technique was used for this scan. IV Contrast dosage and agent: None. COMPARISON: None. FINDINGS: LUNGS, PLEURA AND LARGE AIRWAYS: There is minor atelectasis within the dependent portion of the lower lobes more pronounced on the right No pleural effusion or thickening. There is a very small under 10% volume multiloculated pneumothorax on the right. THYROID: No thyroid lesions. HEART AND PERICARDIUM: Heart size is normal. No pericardial effusion. CORONARY ARTERIES: Coronary artery calcification VESSELS: Thoracic aorta is not dilated. MEDIASTINUM AND SHAMAR: No mediastinal or hilar adenopathy. Esophagus is unremarkable. No hiatal hernia. UPPER ABDOMEN: Gallbladder has been removed surgically. BONES: Acute minimally displaced fracture of the right posterior eighth rib. CT/Chest without Contrast IMPRESSION: Minor bibasilar atelectasis within the dependent portion of the lungs slightly more pronounced on the right in association with very small multi loculated pneumothorax secondary to minimally displaced acute fracture of the posterior right eighth rib Electronically Signed: Leo Sullivan MD at 21:23 EST Reading Location ID and State: [facility] / [place] Tel , Service support ,
--- NOTE | 2023-12-03 20:46 | ED.VIS.FALL ---
HPI <BREANNE Méndez - Last Filed: 12/03/23 22:03> HPI - Fall History of Present Illness Chief Complaint: Fall Narrative Narrative: 48-year-old female tripped down 2 steps landing on her right rib cage. No head injury or LOC. She states she was in a lot of pain and crawled to ask her for help who brought her in for evaluation. She has pain with movement and breathing but does not feel short of breath. No abdominal pain or vomiting. No blood thinners. PFSH <BREANNE Méndez - Last Filed: 12/03/23 22:03> [facility] Medical History Diabetes Home Medications metformin 500 mg tablet 1,000 mg PO DAILY 01/28/21 [History Last Taken Unknown] Allergy/AdvReac Type Severity Reaction Status Date / Time azithromycin Allergy Hives Verified 12/03/23 20:35 Surgical History History of cholecystectomy Social History Smoking Status: Current every day smoker tobacco type: cigarettes ROS <BREANNE Méndez - Last Filed: 12/03/23 22:03> ROS ED ROS Narrative Respiratory: Negative for shortness of breath. GI: Negative for abdominal pain, nausea, vomiting. Skin: Negative for wound. Musc: Negative for joint pain. EXAM <BREANNE Méndez - Last Filed: 12/03/23 22:03> Physical Exam Narrative Exam Narrative: CONST: Patient looks uncomfortable lying in bed. EYES: Normal inspection. NECK: Normal inspection. RESP: No respiratory distress, CTAB. Diffuse tenderness right anterior lateral rib cage, no deformity or crepitus, no external bruising, no subcutaneous emphysema. CVS: Regular rate and rhythm, no murmur, no gallop. ABD: Soft and nontender, no guarding or rebound. Back: Normal inspection, no midline tenderness. SKIN: Color normal, no rash, warm, dry, intact. EXTREMITIES: Normal appearance, full ROM upper and lower extremities, nontender, 2+ radial and DP pulses. NEURO: Oriented x4. PSYCH: Normal affect. Const Vital Signs: 12/03/23 20:32 12/03/23 20:38 Temperature 97.9 F Temperature Source Temporal Pulse Rate 79 Respiratory Rate 18 Respiratory Effort Normal Non-Labored Respiratory Pattern Normal Blood Pressure 120/65 Blood Pressure Mean 83 Pulse Ox 97 Oxygen Delivery Method Room Air Room Air <Dr. Juan Zamora DO - Last Filed: 12/03/23 22:37> Physical Exam Const Vital Signs: 12/03/23 20:32 12/03/23 20:38 Temperature 97.9 F Temperature Source Temporal Pulse Rate 79 Respiratory Rate 18 Respiratory Effort Normal Non-Labored Respiratory Pattern Normal Blood Pressure 120/65 Blood Pressure Mean 83 Pulse Ox 97 Oxygen Delivery Method Room Air Room Air MDM <BREANNE Méndez - Last Filed: 12/03/23 22:03> [facility] Narrative Medical decision making narrative: CT chest shows with no deformity or crepitus. No bruising. Normal heart lung sounds. No abdominal tenderness.Patient had a mechanical fall down 2 steps injuring her right rib cage. No head injury. She is awake and alert with stable vital signs. She has diffuse right rib cage pain minimally displaced right posterior eighth rib with less than 10% pneumothorax. Her vital signs are stable?she remains 97% or above on room air and pain has improved after [place] and ibuprofen. I discussed the case with on-call general surgery, Dr. Rodriguez, who reviewed the films and states since the pneumothorax is so small she is comfortable following the patient here. If stable in the morning she can likely be discharged with pain medication. Case will be discussed with the hospitalist. Differential: Rib contusions, fracture, pneumothorax Radiography Diagnostic Testing: Clinical Impression(s) from Imaging Studies Chest CT 12/03/23 20:44 IMPRESSION: Minor bibasilar atelectasis within the dependent portion of the lungs slightly more pronounced on the right in association with very small multi loculated pneumothorax secondary to minimally displaced acute fracture of the posterior right eighth rib Electronically Signed: Leo Sullivan MD at 21:23 EST , ADDENDUM: 12/03/234 IMPRESSION: Minor bibasilar atelectasis within the dependent portion of the lungs slightly more pronounced on the right in association with very small multi loculated pneumothorax secondary to minimally displaced acute fracture of the posterior right eighth rib N.B. : The above Results were Read Back by Leo Sullivan MD to BREANNE Méndez, and understanding confirmed on 12/03/2023 21:27:45 (ET). Electronically Signed: Leo Sullivan MD at 21:23 EST , <Dr. Juan Zamora, DO - Last Filed: 12/03/23 22:37> MDM Radiography Diagnostic Testing: Clinical Impression(s) from Imaging Studies Chest CT 12/03/23 20:44 IMPRESSION: Minor bibasilar atelectasis within the dependent portion of the lungs slightly more pronounced on the right in association with very small multi loculated pneumothorax secondary to minimally displaced acute fracture of the posterior right eighth rib Electronically Signed: Leo Sullivan MD at 21:23 EST , ADDENDUM: 12/03/232133 IMPRESSION: Minor bibasilar atelectasis within the dependent portion of the lungs slightly more pronounced on the right in association with very small multi loculated pneumothorax secondary to minimally displaced acute fracture of the posterior right eighth rib N.B. : The above Results were Read Back by Leo Sullivan MD to BREANNE Méndez, and understanding confirmed on 12/03/2023 21:27:45 (ET). Electronically Signed: Leo Sullivan MD at 21:23 EST , Treatment and Re-Evaluation Narrative: I have personally performed a face to face assessment of the patient and have reviewed the REGINA Note. I performed a substantive portion of the visit including all aspects of the following. My sauceda findings include: History: Patient presents with right-sided rib pain that began after a fall. Patient states she fell down 2 steps and landed on her right side. Patient states her pain is sharp. Patient states it is worse with breathing and with movement. Patient states she has some tingling into the fingers of her right hand. Patient denies any head injury or loss of consciousness. Patient denies any paresthesias or weakness. Patient denies any other injuries. Exam: Vital signs are stable. Patient is afebrile. Patient is in no acute distress. Oral mucosa is pink and moist. Neck is supple. Trachea is midline. There is no JVD. Heart was regular rate and rhythm. Lungs are clear and equal bilaterally. There is tenderness over the right lateral chest wall. There is no bony crepitance or step-off. There is no subcutaneous emphysema palpated. Abdomen is soft. Bowel sounds are normal. There is no tenderness. Cranial nerves II through XII are intact. There are no focal motor or sensory deficits noted. Medical Decision Making: Differential diagnosis includes rib fracture, contusion, pulmonary contusion, pneumothorax, and pneumonia. CT scan of the chest will be obtained to assess for rib fracture, pneumonia, and pneumothorax. Patient was given a dose of [place] here. Patient was also given a dose of ibuprofen and Zofran. CT scan of the chest was obtained. There is a fracture of the posterior eighth rib on the right. There is a small pneumothorax that is less than 10%. This was interpreted by the radiologist was also independently reviewed by myself. Case was discussed with Dr. Rodriguez. She is agreeable to keep the patient here and monitor her patient for worsening pneumothorax. Case was discussed with the hospitalist. He will admit the patient to his service. Patient understood and was agreeable with the plan. All questions were answered. Discharge Plan Triage Chief Complaint: Fall ED Midlevel Provider: Valerie Caban ED Provider: Juan Zamora Dx/Rx/DC Orders Clinical Impression: Right rib fracture, Pneumothorax Prescriptions: No Action metformin 500 MG tablet 1,000 mg PO DAILY Primary Care Provider: Sofia Acevedo Referrals: Sofia Acevedo MD [Primary Care Provider] - Disposition Disposition: [facility]
[2023-12-03] MEDS: HYDROcodone Bitartrate/Apap 5/325 Tablet PO (20:56)
[2023-12-03] MEDS: Ibuprofen 600 MG Tablet PO (20:56)
[2023-12-03] MEDS: Ondansetron ODT 4 MG Tablet PO (20:56)
--- NOTE | 2023-12-03 21:10 | ED.RN ---
Pt leann called regarding results of her scans. Patient gave verbal consent to give him information.
--- OUTSIDE RECORDS SUMMARY | 2023-12-03 21:47 | XMS RPT_ITS | CCD ---
Author Name Unknown Address [address] [place] [address] Organization [facility] Care Team Providers Care Laboratory Technician Name Role Phone Bruce Acevedo MD Primary Care Provider CAROLYNE MARCUM Referring Unavailable TALAMPAS, BRUCE D Primary Care Unavailable CAROLYNE MARCUM Attending Unavailable TALAMPAS, BRUCE D Primary Care Unavailable TALAMPAS, BRUCE D Primary Care Unavailable TALAMPAS, BRUCE D Attending Unavailable TALAMPAS, BRUCE D Primary Care Unavailable CAROLYNE MARCUM Attending Unavailable TALAMPAS, BRUCE D Primary Care Unavailable TESTRAKE, ASTRID Attending Unavailable TALAMPAS, BRUCE D Primary Care Unavailable TESTRAKE, ASTRID Referring Unavailable TESTRAKE, ASTRID Attending Unavailable TALAMPAS, BRUCE D Primary Care Unavailable TALAMPAS, BRUCE D Attending Unavailable TALAMPAS, BRUCE D Primary Care Unavailable SUKHDEV MARTINEZ Attending Unavailable TALAMPAS, BRUCE D Referring Unavailable TALAMPAS, BRUCE D Primary Care Unavailable TESTRAKE, ASTRID Attending Unavailable TALAMPAS, BRUCE D Primary Care Unavailable CAROLYNE MARCUM Referring Unavailable TALAMPAS, BRUCE D Primary Care Unavailable Allergies Allergy Classification Reported Allergen(s) Allergy Type Date of Onset Reaction(s) Facility (18 sources) Azithromycin; Translations: [AZITHROMYCIN] Drug [facility] Medications Current Medications Medication Drug Class(es) Dates Sig (Normalized) Sig (Original) nirmatrelvir tablet 300 mg (150 mg x 2) and ritonavir tablet 100 mg in a dose pack (PAXLOVID) (2 sources) Start: 05-30-2022 End: 06-04-2022 nirmatrelvir tablet 300 mg (150 mg x 2) and ritonavir tablet 100 mg in a dose pack (PAXLOVID) Administer TWO pink nirmatrelvir 150 mg tablets and ONE white ritonavir 100 mg tablet for a total of three tablets twice daily. 30 tablet 0 05/30/2022 06/04/2022 Active Completed/Discontinued Medications Medication Drug Class(es) Dates Sig (Normalized) Sig (Original) [id number] 200 actuat albuterol 0.09 mg/actuat metered dose inhaler (1 source) beta2-Adrenergic Agonist Start: 09-14-2023 take 2 puff(s) by inhalation every six hours as needed albuterol HFA (PROAIR HFA) 90 mcg/actuation inhaler Inhale 2 Puffs as instructed every 6 hours as needed. 1 Each 0 09/14/2023 Active Problems Active Problems Problem Classification Problem Date Documented Da te Episodic/Chronic Abdominal pain (1 source) Unspecified abdominal pain; Translations: [Acute left flank pain] Onset: 11-12-2023 Episodic Acquired foot deformities (1 source) Hammer toe; Translations: [Other hammer toe(s) (acquired), right foot] Chronic Alcohol-related disorders (18 sources) Nondependent alcohol abuse in remission; Translations: [Alcohol abuse, in remission] Onset: 02-28-2021 02-28-2021 Chronic Calculus of urinary tract (1 source) Personal history of urinary calculi; Translations: [History of kidney stones] Onset: 11-12-2023 Episodic Diabetes mellitus with complications (20 sources) Type II diabetes mellitus uncontrolled; Translations: [Type 2 diabetes mellitus with hyperglycemia] Onset: 02-09-2020 02-09-2020 Chronic Diabetes mellitus without complication (2 sources) Type 2 diabetes mellitus without complication; Translations: [Type 2 diabetes mellitus without complications] Chronic Disorders of lipid metabolism (8 sources) Mixed hyperlipidemia; Translations: [Mixed hyperlipidemia] Onset: 10-30-2022 Chronic Mycoses (3 sources) Onychomycosis; Translations: [Tinea unguium] Episodic Other circulatory disease (1 source) Elevated blood-pressure reading without diagnosis of hypertension; Translations: [Elevated blood-pressure reading, without diagnosis of hypertension] Episodic Other connective tissue disease (1 source) Plantar fasciitis; Translations: [Plantar fascial fibromatosis] Episodic Other connective tissue disease (3 sources) Pain of toe of left foot; Translations: [Pain in left toe(s)] Episodic Other connective tissue disease (3 sources) Pain of toe of right foot; Translations: [Pain in right toe(s)] Episodic Other connective tissue disease (1 source) Pain of bilateral hands; Translations: [Pain in right hand] Episodic Other upper respiratory infections (1 source) Acute maxillary sinusitis; Translations: [Acute maxillary sinusitis, unspecified] Episodic Substance-related disorders (8 sources) Tobacco user; Translations: [Nicotine dependence, unspecified, uncomplicated] Onset: 10-30-2022 Chronic Viral infection (3 sources) Viral disease; Translations: [Viral infection, unspecified] Episodic Past or Other Problems Problem Classification Problem Date Documented Date Episodic/Chronic Immunizations and screening for infectious disease (2 sources) Contact with or exposure to other viral diseases; Translations: [Exposure to COVID-19 virus] Onset: 3 Episodic Other connective tissue disease (17 sources) Disorder of hand; Translations: [Synovitis and tenosynovitis, unspecified] Onset: 4 03-21-2014 Episodic Other screening for suspected conditions (not mental disorders or infectious disease) (5 sources) Patient encounter status; Translations: [Encounter for screening mammogram for malignant neoplasm of breast] Onset: 3 Episodic Sprains and strains (17 sources) Sprain, metatarsophalangeal joint; Translations: [Sprain of metacarpophalangeal joint of right index finger, initial encounter] Onset: 4 03-21-2014 Episodic Results Test Name Value Interpretation Reference Range Facil ity Vital Signs Date Time Vital Sign Value Performing Clinician Bryon glaser 12-08-2022 08:57-0500 Diastolic blood pressure 57 mm[Hg] Sukhdev Martinez MD Work Phone: [facility] 12-08-2022 08:57-0500 Heart rate 71 /min Sukhdev Martinez MD Work Phone: [facility] 12-08-2022 08:57-0500 Respiratory rate 16 /min Sukhdev Martinez MD Work Phone: [facility] 12-08-2022 08:57-0500 SaO2% (BldA) [Mass fraction] 97 % Sukhdev Martinez MD Work Phone: [facility] 12-08-2022 08:57-0500 Systolic blood pressure 118 mm[Hg] Sukhdev Martinez MD Work Phone: [facility] 12-08-2022 07:16-0500 Body temperature 97.5 [degF] Sukhdev Martinez MD Work Phone: [facility] 10-30-2022 13:10-0500 Body weight 73.48 kg Emilie Older LOAD BLOCKER.CUSTOMER SECURITY CLERK Work Phone: [facility] 10-30-2022 13:10-0500 Diastolic blood pressure 78 mm[Hg] Emilie Older LOAD BLOCKER.CUSTOMER SECURITY CLERK Work Phone: [facility] 10-30-2022 13:10-0500 Heart rate 70 /min Emilie Older LOAD BLOCKER.CUSTOMER SECURITY CLERK Work Phone: [facility] 10-30-2022 13:10-0500 Respiratory rate 12 /min Emilie Older LOAD BLOCKER.CUSTOMER SECURITY CLERK Work Phone: [facility] 10-30-2022 13:10-0500 Systolic blood pressure 118 mm[Hg] Emilie Older LOAD BLOCKER.CUSTOMER SECURITY CLERK Work Phone: [facility] 06-09-2022 13:51-0400 Body weight 69.85 kg Bruce Acevedo MD Work Phone: [facility] 06-09-2022 13:51-0400 Diastolic blood pressure 68 mm[Hg] Bruce Acevedo MD Work Phone: [facility] 06-09-2022 13:51-0400 Heart rate 66 /min Bruce Acevedo MD Work Phone: [facility] 06-09-2022 13:51-0400 SaO2% (BldA) [Mass fraction] 99 % Bruce Acevedo MD Work Phone: [facility] 06-09-2022 13:51-0400 Systolic blood pressure 108 mm[Hg] Bruce Acevedo MD Work Phone: [facility] 05-29-2022 13:45-0400 Body temperature 99.61 [degF] Mindi Coleman LOAD BLOCKER.CUSTOMER SECURITY CLERK Work Phone: [facility] 05-29-2022 13:45-0400 Body weight 70.22 kg Mindi Coleman LOAD BLOCKER.CUSTOMER SECURITY CLERK Work Phone: [facility] 05-29-2022 13:45-0400 Diastolic blood pressure 78 mm[Hg] Mindi Coleman LOAD BLOCKER.CUSTOMER SECURITY CLERK Work Phone: [facility] 05-29-2022 13:45-0400 Heart rate 86 /min Mindi Coleman LOAD BLOCKER.CUSTOMER SECURITY CLERK Work Phone: [facility] 05-29-2022 13:45-0400 Respiratory rate 18 /min Mindi Coleman LOAD BLOCKER.CUSTOMER SECURITY CLERK Work Phone: [facility] 05-29-2022 13:45-0400 SaO2% (BldA) [Mass fraction] 98 % Mindi Coleman LOAD BLOCKER.CUSTOMER SECURITY CLERK Work Phone: [facility] 05-29-2022 13:45-0400 Systolic blood pressure 114 mm[Hg] Mindi Coleman LOAD BLOCKER.CUSTOMER SECURITY CLERK Work Phone: [facility] Encounters Encounter Date Encounter Type Care Provider Facility Start: 11-12-2023 End: 11-13-[address] [facility] Facility:[facility] Start: 11-11-2023 End: 11-11-[address] [facility] Facility:[facility] Start: 10-13-2023 End: 10-13-2023 ambulatory BRUCE ACEVEDO Facility:[facility] Start: 09-15-2023 Telephone encounter Marielos RAYMUNDO Work Phone: [facility] Procedures Date Procedure Procedure Detail Performing Clinician Start: 12-08-2022 Colonoscopy flx dx w /collj spec when pfrmd Bruce Acevedo MD Work Phone: Start: 12-08-2022 Gluc bld gluc mntr d ev cleared fda spec home use Sukhdev Martinez MD Work Phone: Start: 12-08-2022 Colonoscopy Bruce lamb MD Work Phone: Start: 12-09-2021 Adult depression scr eening assessment Bruce Acevedo MD Work Phone: Plan of Treatment Date Care Activity Detail Author Start: 12-08-2032 Colonoscopy COLONOSCOPY [facility] Start: 12-08-2032 COLORECTAL CANCER SCREENING COLORECTAL CANCER SCREENING [facility] Start: 03-25-2026 HPV TESTING HPV TESTING [facility] Start: 03-25-2026 PAP TESTING PAP TESTING [facility] Start: 07-29-2024 Covid-19 Vaccine ( season) Covid-19 Vaccine () [facility] Immunizations Immunization Date Immunization Notes Care Provider Fa cility 02-07-2021 COVID-19 vaccine, ag e 12+ yr (PFIZER-BIONTECH - PURPLE TOP) Bruce Acevedo MD Work Phone: [facility] Work Phone: 01-17-2021 COVID-19 vaccine (UNSPECIFIED) Emilie Older LOAD BLOCKER.CUSTOMER SECURITY CLERK Work Phone: [facility] 01-17-2021 COVID-19 vaccine, ag e 12+ yr (PFIZER-BIONTECH - PURPLE TOP) Bruce Acevedo MD Work Phone: [facility] Work Phone: Payers Date Payer Category Payer Medicaid [id number] 2022 Medicaid [id number] 2020 Medicaid [employer] [id number] 2020-Present [phone] [address] [place] [address] Medicaid [id number] 2020 Medicaid [id number] Social History Date Type Detail Facility Start: 03-13-2014 End: 07-22-2023 Tobacco smoking status ALIS Smokes tobacco daily [facility] Work Phone: History of tobacco use Cigarette Smoker C [facility] Work Phone: Start: 03-13-2014 End: 03-02-2023 Cigarettes smoked current (pack per day) - Reported 0.5 [facility] Start: 03-13-2014 End: 07-22-2023 Tobacco use and exposure Smokeless tobacco non-user [facility] Work Phone: Start: 12-09-2021 End: 09-14-2023 Alcohol intake Ex-drinker (finding) [facility] Start: 05-27-2020 History SDOH Alcohol Frequency 3 [facility] Start: 05-27-2020 History SDOH Alcohol Std Drinks 1 [facility] Start: 05-27-2020 History SDOH Social Connections Living 8 [facility] Start: 05-27-2020 History SDOH Physica l Activity DPW 2 [facility] Start: 05-27-2020 Education 12 [facility] Start: 02-28-2021 End: 05-29-2022 Tobacco Comment down to 5 cigarettes daily [facility] Start: 1975 Sex Assigned At Not on file C [facility] Start: 02-16-2022 End: 08-07-2022 Exposure to SARS-CoV-2 (event) Not sure [facility] Start: 12-02-2022 Tobacco Comment down to 3 ciga rettes daily [facility] Start: 05-27-2020 End: 03-02-2023 Social connection and isolation panel [facility] Active Member of [facility] bs or Organizations Not on file [facility] Work Phone: Are you now , , , , never or living with a partner? Living with partner [facility] How often to you hav e a drink containing alcohol? 2-4 times a month [facility] How many standard dr inks containing alcohol do you have on a typical day? 1 or 2 [facility] How often do you hav e 6 or more drinks on 1 occasion? Never [facility] How hard is it for y ou to pay for the very basics like food, housing, medical care, and heating Somewhat hard [facility] Do you feel stress - tense, restless, nervous, or anxious, or unable to sleep at night because your mind is troubled all the time - these days [OSQ] Not at all [facility] (I/We) worried wheth er (my/our) food would run out before (I/we) got money to buy more. Sometimes true [facility] In the past 12 month s, was there a time when you were not able to pay the mortgage or rent on time? Yes [facility] At any time in the p ast 12 months, were you homeless or living in nursing home [including now]? No [facility] Start: 07-22-2023 Tobacco Comment 07/22/23- down to 1 cigarette a day [facility] Clinical Notes 01-22-2022 to 11-12-2023 Telephone Encounter - Bekah Hand LPN - 09/15/2023 9:23 AM ESTTelephone Encounter - Marielos Maldonado PA - 09/15/2023 7:16 AM ESTPatient InstructionsAstrid Wilkerson - 07/22/2023 1:14 PM EDT Note Date & Type Note Facility 11-12-2023 Note HNO ID: [id number] Author: JONO JAFFE RT(R) Service: ? Author Type: Criminal Research Specialist Type: Progress Notes Filed: 11/12/2023 16:05 Note Text: Radiology Service Progress Note PATIENT NAME: Nighat العراقي DATE OF SERVICE: November 12, 2023 TIME: 4:05 PM PATIENT IDENTITY VERIFICATION COMPLETED USING TWO (2) IDENTIFIERS: Name and Date of confirmed by patient verbally. FALL SCREENING: Has the patient had 2 falls in the last year or 1 fall with injury or currently using an Ambulatory Assistive Device (Walker, Cane, Wheelchair, Crutches, etc.)? No PATIENT GENDER DATA: Female. status: : No status: NO. PATIENT RELEVANT IMPLANT DATA REVIEWED: Yes PATIENT PRESENTS WITH AN IMPLANTABLE OR ATTACHED FABRICATION LEAD: No RADIOLOGY DEPARTMENT: CT; Exam(s) Completed: Abdomen/Pelvis PERIPHERAL IV DATA: Not applicable SIGNED BY: RT Joshua(R) November 12, 2023 4:05 PM [facility] 11-11-2023 Note HNO ID: [id number] Author: CAROLYNE MARCUM APRN.DIE MOUNTER Service: ? Author Type: Nurse Specialist Type: Progress Notes Filed: 11/11/2023 11:30 Note Text: SUBJECTIVE: Hepatitis B Vaccine(1 of 3 - 3-dose series) Never done Pneumococcal Vaccine(1 of 2 - PCV) Never done Hepatitis C Screening Never done HIV Screening Never done DTaP,Tdap,Td Vaccine(1 - Tdap) Never done Mammogram Screening Never done Urine Albumin:Creatinine Ratio due on 11/06/2022 HbA1C due on 04/27/2023 Depression Assessment due on 10/18/2023 LDL Cholesterol due on 10/28/2023 HPI Nighat العراقي is a 48 year old female. PMH significant for ACTIVE PROBLEM LIST Sprain of Metacarpophalangeal Joint of Right Index Finger Synovitis of Hand Uncontrolled Type 2 Diabetes Mellitus With Hyperglycemia (Hcc) Alcohol Abuse, in Remission Mixed Hyperlipidemia Tobacco Use Disorder Presents today regarding concern for kidney stone. She called the office yesterday reporting that she passed a kidney stone on November 06. She reported blood in her urine lower abdominal pain and difficulty voiding prior to passing passing a golf ball sized stone in the toilet. She says she has no recent history of kidney stones. She states yesterday she was passing pellets . Today she denies blood in urine, burning with urination, difficulty urinating, lower abdominal pressure, fever/chills, nausea/vomiting. She says she continues to have flank pain. Advised appointment. Scheduled with Carolyne CONLEY tomorrow. Gayle Dey RN Today reports that she feels as if she passed kidney stones last Wednesday and last Wednesday. She continues to note right and left flank pain. Left is greater than right sided flank pain. This is moderately severe. Colicky in nature. Has been able to pass urine. No change in stream. Did see gross hematuria on Wednesday, none on Wednesday. Has had lower abdominal pain, felt this as a stone passed. Continues with pain in both areas. She has nausea but no vomiting. She did not bring her stone in with her today. She separately reports dental extractions earlier this month. Review of Systems Gastrointestinal: Positive for abdominal pain and nausea. Genitourinary: Positive for flank pain and hematuria. Objective BP 109/72 Pulse 74 Resp 16 Wt 72.6 kg (160 lb) BMI 27.46 kg/m? Physical Exam Vitals and nursing note reviewed. Constitutional: Appearance: Normal appearance. HENT: Head: Normocephalic and atraumatic. Eyes: Conjunctiva/sclera: Conjunctivae normal. Cardiovascular: Rate and Rhythm: Normal rate and regular rhythm. Heart sounds: Normal heart sounds. Pulmonary: Effort: Pulmonary effort is normal. Breath sounds: Normal breath sounds. Abdominal: General: Bowel sounds are normal. Palpations: Abdomen is soft. Tenderness: There is abdominal tenderness (mild bilateral lower quadrant). There is right CVA tenderness and left CVA tenderness. Skin: General: Skin is warm and dry. Neurological: General: No focal deficit present. Mental Status: She is alert and oriented to person, place, and time. ALLERGIES Allergen Reactions Zithromax [Azithrom* Hives Medications albuterol HFA (PROAIR HFA) 90 mcg/actuation inhaler Inhale 2 Puffs as instructed every 6 hours as needed. diclofenac (VOLTAREN) 1 % topical gel Apply 2 g to affected area four times daily. As directed for upper extremity joint pravastatin (PRAVACHOL) 20 mg tablet Take 1 tablet by mouth daily at bedtime. metFORMIN ER (GLUCOPHAGE XR) 500 mg 24 hr tablet Take 2 tablets by mouth daily with breakfast. (Patient taking differently: Take 500 mg by mouth daily with breakfast.) traZODone (DESYREL) 50 mg tablet Take 1 tablet by mouth at bedtime as needed (sedation). flash glucose sensor (FREESTYLE RENARD 2 SENSOR) kit Apply new sensor every fourteen (14) days to upper arm. tamsulosin (FLOMAX) 0.4 mg Take 1 capsule by mouth daily at bedtime. naproxen (NAPROSYN) 500 mg tablet Take 1 tablet by mouth two times a day as needed for pain (for pain/inflammation). Take with food. HYDROcodone-Acetaminophen (NORCO) 7.5-325 mg per tablet Take 1 tablet by mouth every 6 hours as needed for pain for up to 3 days. 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 [facility] 10-13-2023 Note HNO ID: [id number] Author: Bruce Acevedo MD Service: ? Author Type: Physician Type: Progress Notes Filed: 10/13/2023 12:41 PM Note Text: This note was created using [employer]. Subjective Nighat العراقي is a 48 year old female. Patient presents with: 4 month follow up SUBJECTIVE: Nighat العراقي is a 48 year old year old lady here today for 4 month follow up appointment for review of medical conditions. Lower back pain that goes across and radiates down left leg. Counter pressure over posterior iliac crest areas helps alleviate the pain. Ibuprofen 600 mg 1 pill daily that was given for teeth. Does help the pain. Not bothersome while standing and walking. Hurts with sitting. Laying down makes back worse. Pillow between legs helps. Trazodone helps with sleep and pain. Just has weird dreams. Not bad dreams. Gums being pulled October 26. PAST MEDICAL HISTORY Diagnosis Date Uncontrolled type 2 diabetes mellitus with hyperglycemia (HCC) 02/09/2020 Has been well controlled Current Outpatient Medications Medication Sig albuterol HFA (PROAIR HFA) 90 mcg/actuation inhaler Inhale 2 Puffs as instructed every 6 hours as needed. diclofenac (VOLTAREN) 1 % topical gel Apply 2 g to affected area four times daily. As directed for upper extremity joint pravastatin (PRAVACHOL) 20 mg tablet Take 1 tablet by mouth daily at bedtime. metFORMIN ER (GLUCOPHAGE XR) 500 mg 24 hr tablet Take 2 tablets by mouth daily with breakfast. (Patient taking differently: Take 500 mg by mouth daily with breakfast.) traZODone (DESYREL) 50 mg tablet Take 1 tablet by mouth at bedtime as needed (sedation). flash glucose sensor (FREESTYLE RENARD 2 SENSOR) kit Apply new sensor every fourteen (14) days to upper arm. No current facility-administered medications for this visit. Review of Systems Objective BP 120/68 Pulse 67 Temp 36.3 ?C (97.3 ?F) Resp 18 Wt 73.5 kg (162 lb) SpO2 97% BMI 27.81 kg/m? Physical Exam Vitals reviewed. Constitutional: Appearance: Normal appearance. She is well-developed. HENT: Head: Normocephalic and atraumatic. Right Ear: External ear normal. Left Ear: External ear normal. Nose: Nose normal. Eyes: Conjunctiva/sclera: Conjunctivae normal. Neck: Thyroid: No thyromegaly. Cardiovascular: Rate and Rhythm: Normal rate and regular rhythm. Pulses: Normal pulses. Heart sounds: Normal heart sounds. No murmur heard. No friction rub. No gallop. Pulmonary: Effort: Pulmonary effort is normal. Breath sounds: Normal breath sounds. Abdominal: General: Bowel sounds are normal. There is no distension. Palpations: Abdomen is soft. There is no mass. Tenderness: There is no abdominal tenderness. Musculoskeletal: General: No deformity. Normal range of motion. Back: Comments: Pacing some during the appointment because hurt to sit for more than a few minutes Lymphadenopathy: Cervical: No cervical adenopathy. Skin: General: Skin is warm and dry. Coloration: Skin is not jaundiced or pale. Findings: No rash. Neurological: General: No focal deficit present. Mental Status: She is alert and oriented to person, place, and time. Cranial Nerves: No cranial nerve deficit. Sensory: No sensory deficit. Motor: No abnormal muscle tone. Coordination: Coordination normal. Gait: Gait abnormal (Antalgic gait). Deep Tendon Reflexes: Reflexes normal. Psychiatric: Attention and Perception: Attention and perception normal. Mood and Affect: Mood and affect normal. Speech: Speech normal. Behavior: Behavior normal. Thought Content: Thought content normal. Judgment: Judgment normal. Assessment and Plan Encounter Diagnosis ICD-10-CM 1. Controlled type 2 diabetes mellitus without complication, without long-term current use of insulin ([facility]) E11.9 HGB A1C COMP METABOLIC PANEL CBC LIPID PANEL BASIC CANCELED: HGB A1C CANCELED: COMP METABOLIC PANEL 2. Chronic left SI joint pain M53.3 G89.29 1 month 3. Chronic bilateral low back pain with left-sided sciatica M54.42 G89.29 1 month 4. Mixed hyperlipidemia E78.2 LIPID PANEL BASIC CANCELED: LIPID PANEL BASIC 5. Encounter for long-term current use of medication Z79.899 HGB A1C COMP METABOLIC PANEL CBC LIPID PANEL BASIC CANCELED: COMP METABOLIC PANEL CANCELED: CBC Above issues addressed with patient. Patient involved in shared decision making for management of medical issues. History and medications reviewed. Epic updated as needed Refills and/or prescriptions taken care of and meds adjusted as indicated after reviewed history, exam and labs. Health Maintenance reviewed. Updated record and/or ordered tests as recorded. Encouraged on efforts at healthy diet and regular exercise and adequate sleep. Will get labs later when fasting. Noted will be getting upper teeth pulled due to problems with soft gums. If ibuprofen once or twice a day, with or without vol (more content not included)... [facility] 09-15-2023 Miscellaneous Notes Patient notified.Bekah Hand LPN Negative for COVID flu RSV documented in this encounter [facility] 09-14-2023 Note HNO ID: [id number] Author: Venus Alonso PA-C Service: ? Author Type: Physician Parking Regulation Enforcement Officer Type: Progress Notes Filed: 09/14/2023 5:32 PM Note Text: This note was created using [employer]. Subjective Nighat العراقي is a 48 year old female. HPI Presents with a chief complaint of cough, chills, body aches, fever over the past 2 days. She was exposed to COVID by a coworker. States she did have COVID in May of this year. She does feel little wheezy. She is a smoker. Denies history of asthma. No diarrhea or vomiting. She states she slept for 10 to 11 hours yesterday. Review of Systems Constitutional: Positive for chills, fatigue and fever. HENT: Positive for congestion, rhinorrhea and sore throat. Negative for ear pain. Respiratory: Positive for cough and wheezing. Cardiovascular: Negative. Gastrointestinal: Negative. Genitourinary: Negative. Musculoskeletal: Positive for myalgias. Neurological: Positive for headaches. All other systems reviewed and are negative. PAST MEDICAL HISTORY Diagnosis Date Uncontrolled type 2 diabetes mellitus with hyperglycemia (HCC) 02/09/2020 Has been well controlled Current Outpatient Medications Medication Sig Dispense Refill diclofenac (VOLTAREN) 1 % topical gel Apply 2 g to affected area four times daily. As directed for upper extremity joint 50 g 3 pravastatin (PRAVACHOL) 20 mg tablet Take 1 tablet by mouth daily at bedtime. 90 tablet 3 metFORMIN ER (GLUCOPHAGE XR) 500 mg 24 hr tablet Take 2 tablets by mouth daily with breakfast. 180 tablet 3 traZODone (DESYREL) 50 mg tablet Take 1 tablet by mouth at bedtime as needed (sedation). 30 tablet 5 flash glucose sensor (FREESTYLE RENARD 2 SENSOR) kit Apply new sensor every fourteen (14) days to upper arm. 6 Each 4 albuterol HFA (PROAIR HFA) 90 mcg/actuation inhaler Inhale 2 Puffs as instructed every 6 hours as needed. 1 Each 0 No current facility-administered medications for this visit. 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 Physical Exam Vitals reviewed. Constitutional: Appearance: Normal appearance. HENT: Head: Normocephalic and atraumatic. Right Ear: Tympanic membrane, ear canal and external ear normal. Left Ear: Tympanic membrane, ear canal and external ear normal. Nose: Congestion present. Mouth/Throat: Mouth: Mucous membranes are moist. Pharynx: Oropharynx is clear. Cardiovascular: Rate and Rhythm: Normal rate and regular rhythm. Heart sounds: Normal heart sounds. Pulmonary: Effort: Pulmonary effort is normal. Breath sounds: Wheezing present. Musculoskeletal: Cervical back: Neck supple. Lymphadenopathy: Cervical: No cervical adenopathy. Skin: General: Skin is warm and dry. Neurological: Mental Status: She is alert. Assessment and Plan ASSESSMENT/PLAN: 1. Suspected COVID-19 virus infection - ICD9: V01.79, ICD10: Z20.822 Patient unsure if she is interested in oral antiviral treatment. She states she would like to speak with Dr. Girard at this about this. Discussed I would recommend it due to her past medical history positive tomorrow for COVID. Discussed supportive care. Albuterol inhaler sent. Discussed red flags for ER care. Patient agreeable. - COVID AND INFLUENZA A/B AND RSV NAAT, ROUTINE Venus Alonso PA-C [facility] 07-29-2023 Note HNO ID: [id number] Author: Carolyne Marcum APRN.DIE MOUNTER Service: ? Author Type: Nurse Specialist Type: Progress Notes Filed: 07/29/2023 4:55 PM Note Text: SUBJECTIVE: Dilated Retinal Exam Never done Mammogram Screening Never done Urine Albumin:Creatinine Ratio due on 11/06/2022 Shingrix Vaccine(1 of 2) Never done HbA1C due on 04/27/2023 Influenza Vaccine(1) Never done Covid-19 Vaccine( season) due on 06/18/2023 HPI Nighat العراقي is a 48 year old female. PMH significant for ACTIVE PROBLEM LIST Sprain of Metacarpophalangeal Joint of Right Index Finger Synovitis of Hand Uncontrolled Type 2 Diabetes Mellitus With Hyperglycemia (Hcc) Alcohol Abuse, in Remission Mixed Hyperlipidemia Tobacco Use Disorder Trazodone started at last visit with Bruce Acevedo MD 01/2023. Seen by Dr Wilkerson podiatry 07/22/2023. She reports trying to quit smoking, down to 1 or 2 cigarettes a day. She reports her mother is ill with an end-stage cancer and currently in hospice. She has been seeing her frequently. DIABETES MELLITUS: Without report of excessive thirst or increased frequency of urination, chest pain or dyspnea , numbness, tingling or pain in extremities, new or unusual visual symptoms, low sugar/hypoglycemic reactions, weight loss/gain, lightheadedness/dizziness, and bowel changes/loose stools. . Patient's last HgA1C was Hemoglobin A1C (%) Date Value 10/28/2022 5.5 11/06/2021 5.6 05/02/2021 5.8 ) HTN: Without report of headache, chest pain, palpitations, dyspnea, peripheral edema, orthopnea, fatigue, and PND. . Last 3 Encounter BP Readings: Date: BP: 02/05/2023 112/58 12/08/2022 118/57 10/30/2022 118/78 Hyperlipidemia. Ms. العراقي reports doing well on current therapy. Her most recent lipid panels are: Cholesterol, Total (mg/dL) Date Value 10/28/2022 320 05/02/2021 205 Total Cholesterol, Nonfasting (mg/dL) Date Value 05/02/2021 Duplicate request 08/07/2020 284 HDL Cholesterol (mg/dL) Date Value 10/28/2022 48 05/02/2021 36 HDL Cholesterol, Nonfasting (mg/dL) Date Value 05/02/2021 Duplicate request 08/07/2020 42 LDL Cholesterol (mg/dL) Date Value 10/28/2022 226 05/02/2021 130 LDL Chol, [place] (mg/dL) Date Value 09/04/2008 122 LDL Cholesterol, Nonfasting (mg/dL) Date Value 05/02/2021 Duplicate request 08/07/2020 194 Triglyceride (mg/dL) Date Value 10/28/2022 229 05/02/2021 197 Triglycerides, Nonfasting (mg/dL) Date Value 05/02/2021 Duplicate request 08/07/2020 239 Review of Systems Objective There were no vitals taken for this visit. Physical Exam ALLERGIES Allergen Reactions Zithromax [Azithrom* Hives Medications diclofenac (VOLTAREN) 1 % topical gel Apply 2 g to affected area four times daily. As directed for upper extremity joint (Patient not taking: Reported on 07/22/2023) flash glucose sensor (FREESTYLE RENARD 2 SENSOR) kit Apply new sensor every fourteen (14) days to upper arm. metFORMIN ER (GLUCOPHAGE XR) 500 mg 24 hr tablet Take 2 tablets by mouth daily with breakfast. pravastatin (PRAVACHOL) 20 mg tablet Take 1 tablet by mouth daily at bedtime. (Patient not taking: Reported on 07/22/2023) traZODone (DESYREL) 50 mg tablet Take 1 tablet by mouth at bedtime as needed (sedation). 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 >60 eGFR >=60 mL/min/1.73mA? 108 WBC 3.70 - 11.00 k/uL 8.79 8.95 RBC 3.90 - 5.20 m/uL 4.78 4.95 Hemoglobin 11.5 - 15.5 g/dL 15.8 (H) 17.1 (H) Hematocrit 36.0 - 46.0 % 46.4 (H) 48.0 (H) MCV 80.0 - 100.0 fL 97.1 97.0 MCH 26.0 - 34.0 pg 33.1 34.5 (H) MCHC 30.5 - 36.0 g/dL 34.1 35.6 RDW-CV 11.5 - 15.0 % 11.9 12.4 Platelet Count 150 - 400 k/uL 320 260 MPV 9.0 - 12.7 fL 9.4 9.4 Absolute nRBC <0.01 k/uL <0.01 <0.01 Cholesterol, Total <200 mg/dL 205 (H) 320 (H) Triglyceride <150 mg/dL 197 (H) 229 (H) HDL Cholesterol >3 (more content not included)... [facility] 07-22-2023 Note HNO ID: [id number] Author: Astrid Wilkerson Service: ? Author Type: Physician Type: Progress Notes Filed: 07/22/2023 1:27 PM Note Text: Last saw pcp: 02/05/23 Subjective: This 48 year old female presents to clinic for diabetic foot check. Patient still has burning in her feet. It is not as bad. She still smokes but is down to one cigarette/day. Patient admits to being diabetic for many years now. Patient +B/T/N in feet at this time. Patient -pain in legs when walking. Patient complains that b/l hallux nails bother her. No other pedal complaints at this time. No change in medications or medical history since last visit. PAIN EVALUATION 07/22/2023 1308 Pain Level: 8 Pain Location: Foot-Right Description: Burning;Stabbing;Aching Frequency: Intermittent Intervention/Comfort measure: Relaxation;Reposition Hemoglobin A1C (%) Date Value 10/28/2022 5.5 11/06/2021 5.6 05/02/2021 5.8 08/07/2020 6.1 11/09/2019 9.0 PCP: Bruce Acevedo MD PAST MEDICAL HISTORY Diagnosis Date Uncontrolled type 2 diabetes mellitus with hyperglycemia (HCC) 02/09/2020 Has been well controlled Current Outpatient Medications Medication Sig traZODone (DESYREL) 50 mg tablet Take 1 tablet by mouth at bedtime as needed (sedation). flash glucose sensor (FREESTYLE RENARD 2 SENSOR) kit Apply new sensor every fourteen (14) days to upper arm. metFORMIN ER (GLUCOPHAGE XR) 500 mg 24 hr tablet Take 2 tablets by mouth daily with breakfast. pravastatin (PRAVACHOL) 20 mg tablet Take 1 tablet by mouth daily at bedtime. (Patient not taking: Reported on 07/22/2023) diclofenac (VOLTAREN) 1 % topical gel Apply 2 g to affected area four times daily. As directed for upper extremity joint (Patient not taking: Reported on 07/22/2023) No current facility-administered medications for this visit. ALLERGIES Allergen Reactions Zithromax [Azithrom* Hives PAST SURGICAL HISTORY Procedure Laterality Date ABDOMINAL SURGERY HX COLONOSCOPY 12/08/2022 repeat in 10 years LAPAROSCOPY SURG CHOLECYSTECTOMY Cholecystectomy, lap LIG/TRNSXJ FLP TUBE ABDL/VAG APPR UNI/BI Tubal ligation FAMILY HISTORY Problem Relation Age of Onset Alcohol/Drug Mother other (Rheumatoid arthritis) Maternal Aunt Social History Tobacco Use Smoking status: Every Day Types: Cigarettes Smokeless tobacco: Never Tobacco comments: 07/22/23- down to 1 cigarette a day Vaping Use Vaping Use: Never used Substance Use Topics Alcohol use: Not Currently Drug use: Not Currently Comment: 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 SKIN: Negative for lesions, rash, and itching. HEMATOLOGY/LYMPHOLOGY Negative for prolonged bleeding, bruising easily, and swollen nodes. ENDOCRINE: Negative for cold or heat intolerance, polyuria, polydipsia and goiter. NEURO: negative The remainder of the review of systems is noncontributory. Objective: Patient presents to clinic ambulating in diabetic shoe Constitutional: Pt is a well developed 48 year old female who is alert, oriented, cooperative and in no apparent distress. Eyes: Following during examination. No redness or drainage. Respiratory: RR normal and nonlabored. Even breathing. No evidence of distress. Psychology: Patient is engaged during conversation. Normal affect and mood. Does not appear depressed or anxious. Vasc: DP and PT pulses are palpable bilateral. CFT is less than 5 seconds bilateral. Skin temperature is warm to warm proximal to distal bilateral. There is no edema or varicosities noted. Hair growth present. Neuro: Protective sensation is intact to the foot and toes when tested with the 5.07 SWM bilateral. Vibratory sensation is decreased at the hallux bilateral. + Significant neurological defecits. Derm: Inspection and palpation performed. Nails 1-5 b/l are painful, incurvated, discolored-yellow, thick, crumbly, dystrophic and with subungal debris. Skin is of normal turgor and texture. Hyperkeratosis noted to not present. NO ulcerations, scars, verruca or other lesions noted. Ortho: Ankle joint DF is full with the knee extended and full with knee flexed. No pain or crepitus noted. STJ, MTJ ROM are full and free of pain or crepitus. Muscle strength is 5/5 for dorsiflexors, plantarflexors, inverters, everters. Digital deformities include none. Assessment: (E11.49) Other diabetic neurological complication associated with type 2 diabetes mellitus (HCC) (primary encounter diagnosis) (B35.1) Onychomycosi (more content not included)... [facility] 07-22-2023 Note HNO ID: [id number] Author: Vy Mane RN Service: ? Author Type: Registered Nurse Type: Progress Notes Filed: 07/22/2023 1:27 PM Note Text: AMB ROOMING INTAKE FLOWSHEET DATA Pain Pain Level: 8 Pain Location: Foot-Right Description: Burning, Stabbing, Aching Frequency: Intermittent Intervention/Comfort measure: Relaxation, Reposition Patient presents with: Left Foot - Established Patient, Follow Up, Diabetic Foot Care Right Foot - Established Patient, Follow Up, Diabetic Foot Care Patient presents for follow up diabetic foot care, last seen 03/02/23. States some pain to right foot. [facility] 07-22-2023 Instructions Astrid Wilkerson - 07/22/2023 1:23 PM EDT Diabetes Foot Care Instructions When you have diabetes, proper foot care is very important. Poor foot care may lead to amputation of a foot or leg. As a person with diabetes, you are more vulnerable to foot problems, because diabetes can damage your nerves and reduce blood flow to your feet. Here are some diabetes foot care tips to follow: Wash and Dry Your Feet Daily Use mild soaps Use warm water Pat your skin dry; do not rub. Thoroughly dry your feet. After washing, use lotion on your feet to prevent cracking. Do not put lotion between your toes. Examine Your Feet Each Day Check the tops and bottoms of your feet. Have someone else look at your feet if you cannot see them. Check for dry, cracked skin. Look for blisters, cuts, scratches, or other sores. Check for redness, increased warmth, or tenderness when touching any area of your feet. Check for ingrown toenails, corns, and calluses. If you get a blister or sore from your shoes, do not pop it. Apply a bandage and wear a different pair of shoes. Take Care of Your Toenails Cut toenails after bathing, when they are soft. Cut toenails straight across and smooth with a nail file. Avoid cutting into the corners of toes. Do not cut cuticles. If you have neuropathy (or decreased sensation in your feet) a inverted block operator should always cut your toenails. Be Careful When Exercising Walk and exercise in comfortable shoes. Do not exercise when you have open sores on your feet. Protect Your Feet With Shoes and Socks Never go barefoot. Always protect your feet by wearing shoes or hard-soled slippers or footwear. Avoid shoes with high heels and pointed toes. Avoid shoes that expose your toes or heels (such as open-toed shoes or sandals). These types of shoes increase your risk for injury and potential infections. Try on new footwear with the type of socks you usually wear. Do not wear new shoes for more than an hour at a time. Change your socks daily. Look and feel inside your shoes before putting them on to make sure there are no foreign objects or rough areas. Avoid tight socks. Wear natural-fiber socks (cotton, wool, or a cotton-wool blend). Wear special shoes if your health care provider recommends them. Wear shoes/boots that will protect your feet from various weather conditions (cold, moisture, etc.). Make sure your shoes fit properly. If you have neuropathy (nerve damage), you may not notice that your shoes are too tight. Perform the footwear test described below. Footwear Test Use this simple test to see if your shoes fit correctly: Stand on a piece of paper. (Make sure you are standing and not sitting, because your foot changes shape when you stand.) Trace the outline of your foot. Trace the outline of your shoe. Compare the tracings: Is the shoe too narrow? Is your foot crammed into the shoe? The shoe should be at least 1/2 inch longer than your longest toe and as wide as your foot. Proper Shoe Choices The following types of shoes are best for people with diabetes Closed toes and heels Leather uppers without a seam inside At least 1/2 inch extra space at the end of your longest toe Inside of shoe should be soft with no rough areas Outer sole should be made of stiff material Shoes should be at least as wide as your feet Tips for Foot Care in Diabetes Don't wait to treat a minor foot problem if you have diabetes. Follow your health care provider's guidelines and first aid guidelines. Report foot injuries and infections to your health care provider immediately. Check water temperature with your elbow, not your foot. Do not use a heating pad on your feet. Do not cross your legs. Do not self-treat your corns, calluses, or other foot problems. Go to your health care provider or inverted block operator to treat these conditions. documented in this encounter [facility] 07-22-2023 History of Present illness Narrative Last saw pcp: 02/05/23 Subjective: This 48 year old female presents to clinic for diabetic foot check. Patient still has burning in her feet. It is not as bad. She still smokes but is down to one cigarette/day. Patient admits to being diabetic for many years now. Patient +B/T/N in feet at this time. Patient -pain in legs when walking. Patient complains that b/l hallux nails bother her. No other pedal complaints at this time. No change in medications or medical history since last visit. PAIN EVALUATION 07/22/2023 1308 Pain Level: 8 Pain Location: Foot-Right Description: Burning;Stabbing;Aching Frequency: Intermittent Intervention/Comfort measure: Relaxation;Reposition Hemoglobin A1C (%) Date Value 10/28/2022 5.5 11/06/2021 5.6 05/02/2021 5.8 08/07/2020 6.1 11/09/2019 9.0 PCP: Bruce Acevedo MD PAST MEDICAL HISTORY Diagnosis Date Uncontrolled type 2 diabetes mellitus with hyperglycemia (HCC) 02/09/2020 Has been well controlled Current Outpatient Medications Medication Sig traZODone (DESYREL) 50 mg tablet Take 1 tablet by mouth at bedtime as needed (sedation). flash glucose sensor (FREESTYLE RENARD 2 SENSOR) kit Apply new sensor every fourteen (14) days to upper arm. metFORMIN ER (GLUCOPHAGE XR) 500 mg 24 hr tablet Take 2 tablets by mouth daily with breakfast. pravastatin (PRAVACHOL) 20 mg tablet Take 1 tablet by mouth daily at bedtime. (Patient not taking: Reported on 07/22/2023) diclofenac (VOLTAREN) 1 % topical gel Apply 2 g to affected area four times daily. As directed for upper extremity joint (Patient not taking: Reported on 07/22/2023) No current facility-administered medications for this visit. ALLERGIES Allergen Reactions Zithromax [Azithrom* Hives PAST SURGICAL HISTORY Procedure Laterality Date ABDOMINAL SURGERY HX COLONOSCOPY 12/08/2022 repeat in 10 years LAPAROSCOPY SURG CHOLECYSTECTOMY Cholecystectomy, lap LIG/TRNSXJ FLP TUBE ABDL/VAG APPR UNI/BI Tubal ligation FAMILY HISTORY Problem Relation Age of Onset Alcohol/Drug Mother other (Rheumatoid arthritis) Maternal Aunt Social History Tobacco Use Smoking status: Every Day Types: Cigarettes Smokeless tobacco: Never Tobacco comments: 07/22/23- down to 1 cigarette a day Vaping Use Vaping Use: Never used Substance Use Topics Alcohol use: Not Currently Drug use: Not Currently Comment: 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 SKIN: Negative for lesions, rash, and itching. HEMATOLOGY/LYMPHOLOGY Negative for prolonged bleeding, bruising easily, and swollen nodes. ENDOCRINE: Negative for cold or heat intolerance, polyuria, polydipsia and goiter. NEURO: negative The remainder of the review of systems is noncontributory. Objective: Patient presents to clinic ambulating in diabetic shoe Constitutional: Pt is a well developed 48 year old female who is alert, oriented, cooperative and in no apparent distress. Eyes: Following during examination. No redness or drainage. Respiratory: RR normal and nonlabored. Even breathing. No evidence of distress. Psychology: Patient is engaged during conversation. Normal affect and mood. Does not appear depressed or anxious. Vasc: DP and PT pulses are palpable bilateral. CFT is less than 5 seconds bilateral. Skin temperature is warm to warm proximal to distal bilateral. There is no edema or varicosities noted. Hair growth present. Neuro: Protective sensation is intact to the foot and toes when tested with the 5.07 SWM bilateral. Vibratory sensation is decreased at the hallux bilateral. + Significant neurological defecits. Derm: Inspection and palpation performed. Nails 1-5 b/l are painful, incurvated, discolored-yellow, thick, crumbly, dystrophic and with subungal debris. Skin is of normal turgor and texture. Hyperkeratosis noted to not present. NO ulcerations, scars, verruca or other lesions noted. Ortho: Ankle joint DF is full with the knee extended and full with knee flexed. No pain or crepitus noted. STJ, MTJ ROM are full and free of pain or crepitus. Muscle strength is 5/5 for dorsiflexors, plantarflexors, inverters, everters. Digital deformities include none. Assessment: (E11.49) Other diabetic neurological complication associated with type 2 diabetes mellitus (HCC) (primary encounter diagnosis) (B35.1) Onychomycosis (M79.675) Pain in toe of left foot (M79.674) Pain in toe of right foot Plan: 1. Patient was seen and evaluated. 2. Patient was instructed on the continued importance of diabetic foot care along with proper diet and keeping their blood sugar under control to prevent complications. Instructions given both oral and written. 3. Toenails 1-5 b/l debrided in length and thickness Astrid Wilkerson DPM AMB ROOMING INTAKE FLOWSHEET DATA Pain Pain Level: 8 Pain Location: Foot-Right Description: Burning, Stabbing, Aching Frequency: Intermittent Intervention/Comfort measure: Relaxation, Reposition Patient presents with: Left Foot - Established Patient, Follow Up, Diabetic Foot Care Right Foot - Established Patient, Follow Up, Diabetic Foot Care Patient presents for follow up diabetic foot care, last seen 03/02/23. States some pain to right foot. [facility] [facility] 03-24-2023 Note Patient Outreach (IN [facility]) NIGHAT العراقي ([id number]) 1975 F Date Time Provider Department 03/24/23 BRUCE ACEVEDO During your visit today, we recorded the following information about you: Allergies As of Date: 03/24/2023 Noted Allergy Reaction ZITHROMAX (AZITHROMYCIN) 11/26/2020 4 - Hives Date Reviewed: 03/02/2023 Reviewed by: Mona Johnson LPN - Fully Assessed Visit Diagnosis:Encounter for screening mammogram for breast cancer [Z12.31] Order(s[facility] [[id number]] Order #: [id number] FUTURE Prescriptions as of 03/29/2023 - traZODone (DESYREL) 50 mg tablet Take 1 tablet by mouth at bedtime as needed (sedation). - flash glucose sensor (FREESTYLE RENARD 2 SENSOR) kit Apply new sensor every fourteen (14) days to upper arm. - pravastatin (PRAVACHOL) 20 mg tablet Take 1 tablet by mouth daily at bedtime. - metFORMIN ER (GLUCOPHAGE XR) 500 mg 24 hr tablet Take 2 tablets by mouth daily with breakfast. - diclofenac (VOLTAREN) 1 % topical gel Apply 2 g to affected area four times daily. As directed for upper extremity joint Problem List As Of Date 03/24/2023 Noted Resolved Sprain of metacarpophalangeal joint of right in*03/21/2014 Synovitis of hand [M65.9] 03/21/2014 Uncontrolled type 2 diabetes mellitus with hype*02/09/2020 Alcohol abuse, in remission [F10.11] 02/28/2021 Mixed hyperlipidemia [E78.2] 10/30/2022 Tobacco use disorder [F17.200] 10/30/2022 Encounter Status:Closed by Sova, PRODUSER on 03/29/23 [facility] 03-02-2023 Note HNO ID: [id number] Author: Mona Johnson LPN Service: ? Author Type: LICENSED NURSE Type: Progress Notes Filed: 03/02/2023 2:30 PM Note Text: Per Dr. Wilkerson, Nighat was provided with powerstep original inserts, size 6.5, and instructed/educated in its application, wear, and care. All questions were answered, and patient was able to demonstrate competence with the necessary skills to utilize the above equipment. Mona Johnson LPN [facility] 03-02-2023 Note HNO ID: [id number] Author: Astrid Wilkerson Service: ? Author Type: Physician Type: Progress Notes Filed: 03/02/2023 2:23 PM Note Text: Subjective: This 47 year old female presents to clinic for diabetic foot check. Patient has the following complaints: occasional burning in right foot. Patient states the burning is present at some time every day. It has been happening over the psat few weeks. She treats with cold compress and that does help. Patient admits to being diabetic for 2 years now. Patient +B/T/N in feet at this time. Patient +pain in legs when walking. No other pedal complaints at this time. No change in medications or medical history since last visit. Patient does smoke but she is in process of quitting. Patient does complain of painful toenails. She does reoprt she recently cut her left 4th toe in her boot. She states it is healing. PAIN EVALUATION 03/02/2023 1305 03/02/2023 1350 Pain Level: 10 -- Description: Aching;Sore;Stiffness -- Duration Units: Days Weeks Frequency: Continuous -- Intervention/Comfort measure: Cold;Pillow support -- Hemoglobin A1C (%) Date Value 10/28/2022 5.5 11/06/2021 5.6 05/02/2021 5.8 08/07/2020 6.1 11/09/2019 9.0 PCP: Bruce Acevedo MD PAST MEDICAL HISTORY Diagnosis Date Uncontrolled type 2 diabetes mellitus with hyperglycemia (HCC) 02/09/2020 Has been well controlled Current Outpatient Medications Medication Sig traZODone (DESYREL) 50 mg tablet Take 1 tablet by mouth at bedtime as needed (sedation). flash glucose sensor (FREESTYLE RENARD 2 SENSOR) kit Apply new sensor every fourteen (14) days to upper arm. pravastatin (PRAVACHOL) 20 mg tablet Take 1 tablet by mouth daily at bedtime. metFORMIN ER (GLUCOPHAGE XR) 500 mg 24 hr tablet Take 2 tablets by mouth daily with breakfast. diclofenac (VOLTAREN) 1 % topical gel Apply 2 g to affected area four times daily. As directed for upper extremity joint No current facility-administered medications for this visit. ALLERGIES Allergen Reactions Zithromax [Azithrom* Hives PAST SURGICAL HISTORY Procedure Laterality Date ABDOMINAL SURGERY HX COLONOSCOPY 12/08/2022 repeat in 10 years LAPAROSCOPY SURG CHOLECYSTECTOMY Cholecystectomy, lap LIG/TRNSXJ FLP TUBE ABDL/VAG APPR UNI/BI Tubal ligation FAMILY HISTORY Problem Relation Age of Onset Alcohol/Drug Mother other (Rheumatoid arthritis) Maternal Aunt Social History Tobacco Use Smoking status: Every Day Packs/day: 0.50 Types: Cigarettes Smokeless tobacco: Never Tobacco comments: down to 1 cigarettes some daily Vaping Use Vaping Use: Never used Substance Use Topics Alcohol use: Not Currently Drug use: Not Currently Comment: 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 SKIN: Negative for lesions, rash, and itching. HEMATOLOGY/LYMPHOLOGY Negative for prolonged bleeding, bruising easily, and swollen nodes. ENDOCRINE: Negative for cold or heat intolerance, polyuria, polydipsia and goiter. NEURO: negative The remainder of the review of systems is noncontributory. Objective: Patient presents to clinic ambulating in [facility] Constitutional: Pt is a well developed 47 year old female who is alert, oriented, cooperative and in no apparent distress. Eyes: Following during examination. No redness or drainage. Respiratory: RR normal and nonlabored. Even breathing. No evidence of distress. Psychology: Patient is engaged during conversation. Normal affect and mood. Does not appear depressed or anxious. Vasc: DP and PT pulses are palpable bilateral. CFT is less than 5 seconds bilateral. Skin temperature is warm to warm proximal to distal bilateral. There is no edema or varicosities noted. Hair growth present. Neuro: Protective sensation is intact to the foot and toes when tested with the 5.07 SWM bilateral. Vibratory sensation is intact at the hallux bilateral. + tinel to right foot. No Significant neurological defecits. Derm: Inspection and palpation performed. Nails 1-5 b/l are painful, discolored-yellow, thick, crumbly, dystrophic and with subungal debris. Skin is dry b/l. Hyperkeratosis noted to not present. NO ulcerations, scars, verruca or other lesions noted. Ortho: Ankle joint DF is full with the knee extended and full with knee flexed. No pain or crepitus noted. STJ, MTJ ROM are full and free of pain or crepitus. Muscle strength is 5/5 for dorsiflexors, plantarflexors, inverters, everters. Digital deformities include h (more content not included)... [facility] 03-02-2023 Note HNO ID: [id number] Author: Mona Johnson LPN Service: ? Author Type: LICENSED NURSE Type: Progress Notes Filed: 03/02/2023 2:23 PM Note Text: AMB ROOMING INTAKE FLOWSHEET DATA Pain Pain Level: 10 Description: Aching, Sore, Stiffness Duration Units: Weeks Frequency: Continuous Intervention/Comfort measure: Cold, Pillow support Patient presents with: Left Foot - Diabetic Foot Care, Established Patient, Follow Up Right Foot - Established Patient, Diabetic Foot Care, Follow Up, Pain Mona CARMELA Johnson [facility] 02-05-2023 Note HNO ID: [id number] Author: Bruce Acevedo MD Service: ? Author Type: Physician Type: Progress Notes Filed: 2023 1:04 AM Note Text: This note was created using [employer]. Subjective Nighat العراقي is a 47 year old female. No chief complaint on file. SUBJECTIVE: Nighat العراقي is a 47 year old year old lady here today for 4 month follow up appointment for review of medical conditions. Noted mother diagnosed with stage 4 bladder cancer. Noted that swelling was worse when first started statin. Slowly improving. Cold helps. Requested trazodone for sleep as needed. PAST MEDICAL HISTORY Diagnosis Date Uncontrolled type 2 diabetes mellitus with hyperglycemia (HCC) 02/09/2020 Current Outpatient Medications Medication Sig pravastatin (PRAVACHOL) 20 mg tablet Take 1 tablet by mouth daily at bedtime. metFORMIN ER (GLUCOPHAGE XR) 500 mg 24 hr tablet Take 2 tablets by mouth daily with breakfast. peg 3350-Electrolytes (GOLYTELY) 236-22.74-6.74 -5.86 gram suspension Take as directed (Patient taking differently: Take as directed To take in August) diclofenac (VOLTAREN) 1 % topical gel Apply 2 g to affected area four times daily. As directed for upper extremity joint No current facility-administered medications for this visit. Review of Systems Objective BP 112/58 Pulse 86 Temp 36.4 ?C (97.5 ?F) Resp 18 Wt 73.9 kg (163 lb) SpO2 97% BMI 27.98 kg/m? Physical Exam Constitutional: Appearance: Normal appearance. HENT: Head: Normocephalic. Eyes: Conjunctiva/sclera: Conjunctivae normal. Cardiovascular: Rate and Rhythm: Normal rate and regular rhythm. Heart sounds: Normal heart sounds. Pulmonary: Effort: Pulmonary effort is normal. Breath sounds: Normal breath sounds. Skin: General: Skin is warm and dry. Neurological: General: No focal deficit present. Mental Status: She is alert and oriented to person, place, and time. Psychiatric: Mood and Affect: Mood normal. Behavior: Behavior normal. Thought Content: Thought content normal. Judgment: Judgment normal. Component Latest Ref Rng AND Units 10/28/2022 Protein, Total 6.3 - 8.0 g/dL 7.5 Albumin 3.9 - 4.9 g/dL 4.6 Calcium 8.5 - 10.2 mg/dL 9.7 Bilirubin, Total 0.2 - 1.3 mg/dL 0.4 Alkaline Phosphatase 34 - 123 U/L 85 AST 13 - 35 U/L 24 ALT 7 - 38 U/L 23 Glucose 74 - 99 mg/dL 104 (H) BUN 7 - 21 mg/dL 10 Creatinine 0.58 - 0.96 mg/dL 0.64 Sodium 136 - 144 mmol/L 138 Potassium 3.7 - 5.1 mmol/L 4.4 Chloride 97 - 105 mmol/L 101 CO2 22 - 30 mmol/L 24 Anion Gap 9 - 18 mmol/L 13 eGFR >=60 mL/min/1.73mA? 108 WBC 3.70 - 11.00 k/uL 8.95 RBC 3.90 - 5.20 m/uL 4.95 Hemoglobin 11.5 - 15.5 g/dL 17.1 (H) Hematocrit 36.0 - 46.0 % 48.0 (H) MCV 80.0 - 100.0 fL 97.0 MCH 26.0 - 34.0 pg 34.5 (H) MCHC 30.5 - 36.0 g/dL 35.6 RDW-CV 11.5 - 15.0 % 12.4 Platelet Count 150 - 400 k/uL 260 MPV 9.0 - 12.7 fL 9.4 Absolute nRBC <0.01 k/uL <0.01 Cholesterol, Total <200 mg/dL 320 (H) Triglyceride <150 mg/dL 229 (H) HDL Cholesterol >39 mg/dL 48 Non HDL Cholesterol <130 mg/dL 272 (H) Fasting Time hrs 13 VLDL Cholesterol <30 mg/dL 46 (H) TC:HDL Ratio <5.10 6.67 (H) LDL Cholesterol <100 mg/dL 226 (H) LDL:HDL Ratio <2.54 4.71 (H) Hemoglobin A1C 4.3 - 5.6 % 5.5 Estimated Average Glucose mg/dL 111 Hemoglobin A1C (%) Date Value 10/28/2022 5.5 11/06/2021 5.6 05/02/2021 5.8 08/07/2020 6.1 11/09/2019 9.0 Assessment and Plan Encounter Diagnosis ICD-10-CM 1. Controlled type 2 diabetes mellitus without complication, without long-term current use of insulin (HCC) E11.9 flash glucose scanning reader (FREESTYLE RENARD 2 READER) flash glucose sensor (FREESTYLE RENARD 2 SENSOR) kit 2. Mixed hyperlipidemia E78.2 3. Smoker F17.200 Down to 3 cig per day. Anxiety main trigger. Working on this 4. Other insomnia G47.09 traZODone (DESYREL) 50 mg tablet 5. Encounter for long-term current use of medication Z79.899 CBC + DIFF Above issues addressed with patient. Patient involved in shared decision making for management of medical issues. History and medications reviewed. Epic updated as needed Refills and/or prescriptions taken care of and meds adjusted as indicated after reviewed history, exam and labs. Health Maintenance reviewed. Updated record and/or ordered tests as recorded. Encouraged on efforts at healthy diet and regular exercise and adequate sleep. Work on dealing with triggers in order to quit smoking successfully. Bruce Acevedo MD [facility] 02-03-2023 Miscellaneous Notes Called patient and offered an appointment to discuss pain. Patient states that she already has an appointment scheduled 03/02/23 and that next week she has her appointment with [employer]. Patient is fine waiting till her scheduled appointment. Asked patient if she had been wearing her inserts, states that she has, but only has the one. Informed patient that they are available for purchase at most shoe stores and online if she would like more pairs for her different shoes. Patient will look into getting another pair of her powerstep inserts. Images from the original note were not included. Astrid Fitzpatrick 4 minutes ago (12:47 PM) Have her make follow-up to discuss her pain and to see what options are available Astrid Wilkerson DPM [facility] [employer] called back, states that they can't access the voicemail for the [place] office. Provided patient's number for her to call and get patient scheduled. Patient verified by name and . Patient calling regarding diabetic shoes order, states that she attempted to get them at [facility], but they do not accept her insurance. Patient has called the [employer] in [place] and left multiple messages. I called the [place] [employer] and left a message saying we had a patient trying to reach them and left our office phone number. Order was faxed to the [place] office at this time. Patient states that she has been having lots of pain still and even began having some heel pain since the last visit. States that heat makes it worse and she is taking motrin. Cold seems to help some. Patient has decreased hours at work because of the pain. Patient wondering if there are any other suggestions of things to try to help with the pain while she waits for the diabetic shoes. documented in this encounter [facility] 12-21-2022 Miscellaneous Notes Call placed to patient and provider message reviewed. Patient verbalizes understanding. Coral Garcia RN Can try Pravachol starting at lower dose 20 mg to see if can tolerate at lower dose then titrate up as tolerated as needed. Not sure if any good studies to show Nutrafol effective, or how high sugars might go. Okay for her to try and monitor blood sugars--ingredients list included fruit extract but did not see any listing for how much carbs per dose. The following approved medication requests have been transmitted electronically. Requested Prescriptions Signed Prescriptions Disp Refills pravastatin (PRAVACHOL) 20 mg tablet 30 tablet 5 Sig: Take 1 tablet by mouth daily at bedtime. Authorizing Provider: BRUCE ACEVEDO MD Patient reports podiatry told her to reach out to PCP. Patient reports that when she started on Lipitor 40 mg she started having bilateral feet swelling and her feet felt prickly and like they were on fire. Patient stopped the Lipitor and swelling and sensation went away. Patient asking if she should try something else for cholesterol? Patient also asking if provider would recommend Nutrafol for hair growth. She reports her hair is thinning and she would like to try it but it could raise her blood sugar and asking provider opinion. FBS yesterday 112. Please review and advise, Coral Garcia RN documented in this encounter [facility] 12-08-2022 Note HNO ID: [id number] Author: Malu Jorgensen RN Service: ? Author Type: Registered Nurse Type: Nursing Progress Note Filed: 12/08/2022 9:19 AM Note Text: Waiting for motorcycle delivery driver. Malu Jorgensen RN [facility] 12-08-2022 Nurse Note Waiting for motorcycle delivery driver. Malu Jorgensen RN Pt received in PACU. Pt very drowsy, but arouses slightly. Appears comfortable. Abd soft and non distended. Malu Jorgensen RN documented in this encounter [facility] 12-08-2022 History and physical note PROCEDURAL SEDATION HISTORY AND PHYSICAL EXAM SERVICE DATE: 12/08/2022 SERVICE TIME: 7:33 AM Subjective HPI: This is a 47 year old female who presents for screening colonoscopy PAST ANESTHESIA HISTORY: No history of adverse event PAST MEDICAL HISTORY Diagnosis Date Uncontrolled type 2 diabetes mellitus with hyperglycemia (HCC) 02/09/2020 PAST SURGICAL HISTORY Procedure Laterality Date ABDOMINAL SURGERY HX LAPAROSCOPY SURG CHOLECYSTECTOMY Cholecystectomy, lap LIG/TRNSXJ FLP TUBE ABDL/VAG APPR UNI/BI Tubal ligation Prior to Admission medications as of 12/08/22 0656 Medication Sig Last Dose Taking metFORMIN ER (GLUCOPHAGE XR) 500 mg 24 hr tablet Take 2 tablets by mouth daily with breakfast. 12/07/2022 Yes peg 3350-Electrolytes (GOLYTELY) 236-22.74-6.74 -5.86 gram suspension Take as directed Patient taking differently: Take as directed To take in 12/07/2022 Yes atorvastatin (LIPITOR) 40 mg tablet Take 1 tablet by mouth daily at bedtime. For cholesterol. 12/04/2022 diclofenac (VOLTAREN) 1 % topical gel Apply 2 g to affected area four times daily. As directed for upper extremity joint Unknown ALLERGIES Allergen Reactions Zithromax [Azithrom* Hives Objective PHYSICAL EXAM: The remainder of the physical exam is noncontributory. AIRWAY: Airway Visualization of Uvula: Yes Mouth opening greater than 2 fingerbreadths: Yes Neck Full Range of Motion: Yes LUNGS: Lungs clear to auscultation CARDIAC: Regular rhythm,Regular rate Assessment/Plan ASA Class: ASA Class:: Patient with severe systemic disease Active Problems: Medication and Non-Pharmacologic VTE Prophylaxis/Anticoagulants VTE Prophylaxis: VTE prophylaxis appropriate Provisional Diagnosis/Treatment Plan: screening colonoscopy SEDATION GOAL: Moderate SIGNATURE: Sukhdev Martinez MD PATIENT NAME: Nighat العراقي DATE: December 08, 2022 TIME: 7:33 AM documented in this encounter [facility] 12-08-2022 Miscellaneous Notes 10-year follow-up colonoscopy advised, no concerning findings documented in this encounter [facility] 12-02-2022 Note HNO ID: [id number] Author: Astrid Wilkerson Service: ? Author Type: Physician Type: Progress Notes Filed: 12/02/2022 10:21 AM Note Text: Last saw Emilie Older 10/30/22 Subjective: This 47 year old female presents to clinic for diabetic foot check. Patient has the following complaints: painful neuropathy. Patient does not take anything for the painful neuropathy. Patient admits to being diabetic for a couple years now. Patient + B/T/N in feet at this time. Patient -pain in legs when walking. No other pedal complaints at this time. No change in medications or medical history since last visit. PAIN EVALUATION 12/02/2022 0951 Pain Level: 8 Pain Location: Other: See Comment bilateral feet Description: Stabbing;Burning Duration Amount of Time: 3 Duration Units: Weeks Frequency: Intermittent Intervention/Comfort measure: Reposition;Relaxation Hemoglobin A1C (%) Date Value 10/28/2022 5.5 11/06/2021 5.6 05/02/2021 5.8 08/07/2020 6.1 11/09/2019 9.0 PCP: Bruce Acevedo MD PAST MEDICAL HISTORY Diagnosis Date Uncontrolled type 2 diabetes mellitus with hyperglycemia (HCC) 02/09/2020 Current Outpatient Medications Medication Sig atorvastatin (LIPITOR) 40 mg tablet Take 1 tablet by mouth daily at bedtime. For cholesterol. metFORMIN ER (GLUCOPHAGE XR) 500 mg 24 hr tablet Take 2 tablets by mouth daily with breakfast. diclofenac (VOLTAREN) 1 % topical gel Apply 2 g to affected area four times daily. As directed for upper extremity joint peg 3350-Electrolytes (GOLYTELY) 236-22.74-6.74 -5.86 gram suspension Take as directed (Patient taking differently: Take as directed To take in August) No current facility-administered medications for this visit. 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 SKIN: Negative for lesions, rash, and itching. HEMATOLOGY/LYMPHOLOGY Negative for prolonged bleeding, bruising easily, and swollen nodes. ENDOCRINE: Negative for cold or heat intolerance, polyuria, polydipsia and goiter. NEURO: negative The remainder of the review of systems is noncontributory. Objective: Patient presents to clinic ambulating in [facility] Constitutional: Pt is a well developed 47 year old female who is alert, oriented, cooperative and in no apparent distress. Eyes: Following during examination. No redness or drainage. Respiratory: RR normal and nonlabored. Even breathing. No evidence of distress. Psychology: Patient is engaged during conversation. Normal affect and mood. Does not appear depressed or anxious. Vasc: DP and PT pulses are palpable bilateral. CFT is less than 5 seconds bilateral. Skin temperature is warm to warm proximal to distal bilateral. There is no edema or varicosities noted. Hair growth present. Neuro: Protective sensation is intact to the foot and toes when tested with the 5.07 SWM bilateral. Vibratory sensation is intact at the hallux bilateral. No Significant neurological defecits. Derm: Inspection and palpation performed. Nails 1-5 b/l are painful, discolored-yellow, thick, crumbly, dystrophic and with subungal debris. Skin is of normal turgor and texture. Hyperkeratosis noted to not present. NO ulcerations, scars, verruca or other lesions noted. Ortho: Ankle joint DF is full with the knee extended and full with knee flexed. No pain or crepitus noted. STJ, MTJ ROM are full and free of pain or crepitus. Muscle strength is 5/5 for dorsiflexors, plantarflexors, inverters, everters. Digital deformities include hammertoes of lesser toes. Assessment: (E11.49) Other diabetic neurological complication associated with type 2 diabetes mellitus (HCC) (primary encounter diagnosis) (B35.1) Onychomycosis (M79.675) Pain in toe of left foot (M79.674) Pain in toe of right foot (M20.41) Hammer toe of right foot Plan: 1. Patient was seen and evaluated. 2. P (more content not included)... [facility] 12-02-2022 Note HNO ID: [id number] Author: Mona Johnson LPN Service: ? Author Type: LICENSED NURSE Type: Progress Notes Filed: 12/02/2022 10:21 AM Note Text: AMB ROOMING INTAKE FLOWSHEET DATA Pain Pain Level: 8 Pain Location: Other: See Comment (bilateral feet) Description: Stabbing, Burning Duration Amount of Time: 3 Duration Units: Weeks Frequency: Intermittent Intervention/Comfort measure: Reposition, Relaxation Patient presents with: Left Foot - Established Patient, Follow Up, Pain Right Foot - Established Patient, Follow Up, Pain Mona Johnson LPN [facility] 12-02-2022 Instructions Astrid Wilkerson - 12/02/2022 10:15 AM EST Diabetes Foot Care Instructions When you have diabetes, proper foot care is very important. Poor foot care may lead to amputation of a foot or leg. As a person with diabetes, you are more vulnerable to foot problems, because diabetes can damage your nerves and reduce blood flow to your feet. Here are some diabetes foot care tips to follow: Wash and Dry Your Feet Daily Use mild soaps Use warm water Pat your skin dry; do not rub. Thoroughly dry your feet. After washing, use lotion on your feet to prevent cracking. Do not put lotion between your toes. Examine Your Feet Each Day Check the tops and bottoms of your feet. Have someone else look at your feet if you cannot see them. Check for dry, cracked skin. Look for blisters, cuts, scratches, or other sores. Check for redness, increased warmth, or tenderness when touching any area of your feet. Check for ingrown toenails, corns, and calluses. If you get a blister or sore from your shoes, do not pop it. Apply a bandage and wear a different pair of shoes. Take Care of Your Toenails Cut toenails after bathing, when they are soft. Cut toenails straight across and smooth with a nail file. Avoid cutting into the corners of toes. Do not cut cuticles. If you have neuropathy (or decreased sensation in your feet) a inverted block operator should always cut your toenails. Be Careful When Exercising Walk and exercise in comfortable shoes. Do not exercise when you have open sores on your feet. Protect Your Feet With Shoes and Socks Never go barefoot. Always protect your feet by wearing shoes or hard-soled slippers or footwear. Avoid shoes with high heels and pointed toes. Avoid shoes that expose your toes or heels (such as open-toed shoes or sandals). These types of shoes increase your risk for injury and potential infections. Try on new footwear with the type of socks you usually wear. Do not wear new shoes for more than an hour at a time. Change your socks daily. Look and feel inside your shoes before putting them on to make sure there are no foreign objects or rough areas. Avoid tight socks. Wear natural-fiber socks (cotton, wool, or a cotton-wool blend). Wear special shoes if your health care provider recommends them. Wear shoes/boots that will protect your feet from various weather conditions (cold, moisture, etc.). Make sure your shoes fit properly. If you have neuropathy (nerve damage), you may not notice that your shoes are too tight. Perform the footwear test described below. Footwear Test Use this simple test to see if your shoes fit correctly: Stand on a piece of paper. (Make sure you are standing and not sitting, because your foot changes shape when you stand.) Trace the outline of your foot. Trace the outline of your shoe. Compare the tracings: Is the shoe too narrow? Is your foot crammed into the shoe? The shoe should be at least 1/2 inch longer than your longest toe and as wide as your foot. Proper Shoe Choices The following types of shoes are best for people with diabetes Closed toes and heels Leather uppers without a seam inside At least 1/2 inch extra space at the end of your longest toe Inside of shoe should be soft with no rough areas Outer sole should be made of stiff material Shoes should be at least as wide as your feet Tips for Foot Care in Diabetes Don't wait to treat a minor foot problem if you have diabetes. Follow your health care provider's guidelines and first aid guidelines. Report foot injuries and infections to your health care provider immediately. Check water temperature with your elbow, not your foot. Do not use a heating pad on your feet. Do not cross your legs. Do not self-treat your corns, calluses, or other foot problems. Go to your health care provider or inverted block operator to treat these conditions. documented in this encounter [facility] 12-02-2022 History of Present illness Narrative Images from the original note were not included. Last saw Emilie Older 10/30/22 Subjective: This 47 year old female presents to clinic for diabetic foot check. Patient has the following complaints: painful neuropathy. Patient does not take anything for the painful neuropathy. Patient admits to being diabetic for a couple years now. Patient + B/T/N in feet at this time. Patient -pain in legs when walking. No other pedal complaints at this time. No change in medications or medical history since last visit. PAIN EVALUATION 12/02/2022 0951 Pain Level: 8 Pain Location: Other: See Comment bilateral feet Description: Stabbing;Burning Duration Amount of Time: 3 Duration Units: Weeks Frequency: Intermittent Intervention/Comfort measure: Reposition;Relaxation Hemoglobin A1C (%) Date Value 10/28/2022 5.5 11/06/2021 5.6 05/02/2021 5.8 08/07/2020 6.1 11/09/2019 9.0 PCP: Bruce Acevedo MD PAST MEDICAL HISTORY Diagnosis Date Uncontrolled type 2 diabetes mellitus with hyperglycemia (HCC) 02/09/2020 Current Outpatient Medications Medication Sig atorvastatin (LIPITOR) 40 mg tablet Take 1 tablet by mouth daily at bedtime. For cholesterol. metFORMIN ER (GLUCOPHAGE XR) 500 mg 24 hr tablet Take 2 tablets by mouth daily with breakfast. diclofenac (VOLTAREN) 1 % topical gel Apply 2 g to affected area four times daily. As directed for upper extremity joint peg 3350-Electrolytes (GOLYTELY) 236-22.74-6.74 -5.86 gram suspension Take as directed (Patient taking differently: Take as directed To take in August) No current facility-administered medications for this visit. 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 SKIN: Negative for lesions, rash, and itching. HEMATOLOGY/LYMPHOLOGY Negative for prolonged bleeding, bruising easily, and swollen nodes. ENDOCRINE: Negative for cold or heat intolerance, polyuria, polydipsia and goiter. NEURO: negative The remainder of the review of systems is noncontributory. Objective: Patient presents to clinic ambulating in [facility] Constitutional: Pt is a well developed 47 year old female who is alert, oriented, cooperative and in no apparent distress. Eyes: Following during examination. No redness or drainage. Respiratory: RR normal and nonlabored. Even breathing. No evidence of distress. Psychology: Patient is engaged during conversation. Normal affect and mood. Does not appear depressed or anxious. Vasc: DP and PT pulses are palpable bilateral. CFT is less than 5 seconds bilateral. Skin temperature is warm to warm proximal to distal bilateral. There is no edema or varicosities noted. Hair growth present. Neuro: Protective sensation is intact to the foot and toes when tested with the 5.07 SWM bilateral. Vibratory sensation is intact at the hallux bilateral. No Significant neurological defecits. Derm: Inspection and palpation performed. Nails 1-5 b/l are painful, discolored-yellow, thick, crumbly, dystrophic and with subungal debris. Skin is of normal turgor and texture. Hyperkeratosis noted to not present. NO ulcerations, scars, verruca or other lesions noted. Ortho: Ankle joint DF is full with the knee extended and full with knee flexed. No pain or crepitus noted. STJ, MTJ ROM are full and free of pain or crepitus. Muscle strength is 5/5 for dorsiflexors, plantarflexors, inverters, everters. Digital deformities include hammertoes of lesser toes. Assessment: (E11.49) Other diabetic neurological complication associated with type 2 diabetes mellitus (HCC) (primary encounter diagnosis) (B35.1) Onychomycosis (M79.675) Pain in toe of left foot (M79.674) Pain in toe of right foot (M20.41) Hammer toe of right foot Plan: 1. Patient was seen and evaluated. 2. Patient was instructed on the continued importance of diabetic foot care along with proper diet and keeping their blood sugar under control to prevent complications. Instructions given both oral and written. 3. Toenails 1-5 b/l debrided in length and thickness 4. Smoking cessation encouraged 5. Diabetic shoes ordered Astrid Wilkerson DPM AMB ROOMING INTAKE FLOWSHEET DATA Pain Pain Level: 8 Pain Location: Other: See Comment (bilateral feet) Description: Stabbing, Burning Duration Amount of Time: 3 Duration Units: Weeks Frequency: Intermittent Intervention/Comfort measure: Reposition, Relaxation Patient presents with: Left Foot - Established Patient, Follow Up, Pain Right Foot - Established Patient, Follow Up, Pain Mona Johnson LPN documented in this encounter [facility] 10-30-2022 Instructions Emilie Gibson APRN.CNP - 10/30/2022 1:16 PM EST Medications to help you quit smoking: Zyban (bupropion) or Chantix documented in this encounter [facility] 10-30-2022 History of Present illness Narrative CC: Patient presents with: follow up - labs HPI Nighat العراقي is a 47 year old female who presents today for above. . Diabetes: Home blood sugar readings: average around 110 or less. Hypoglycemia: No She is compliant with medication(s) and is tolerating med(s) without any side effects. Denies increased thirst, urinary frequency, nocturia, fatigue, unintentional weight loss, blurred vision, numbness, tingling or pain in extremities, ulcers or sores on feet Last Ophthalmology exam was within the past 6 months Patient's last HgA1C was Hemoglobin A1C (%) Date Value 10/28/2022 5.5 11/06/2021 5.6 05/02/2021 5.8 Cholesterol elevated, higher than previous. Exercise: denies regular aerobic exercise. Diet: Watches diet for salt (salty snacks, added salt, processed frozen/canned foods), sugary/sweet snacks, unhealthy fats: No She is trying to quit smoking. She stopped for a while but started back up again when she was around other smokers. Smokes about 1/2 PPD. Has called 1-800 quit now and receiving Nicotine gum/patches. Denies fever, chills, night sweats, unintentional weight loss, cough, wheezing, hemoptysis. REVIEW OF SYSTEMS See HPI PAST MEDICAL HISTORY Diagnosis Date Uncontrolled type 2 diabetes mellitus with hyperglycemia (HCC) 02/09/2020 PAST SURGICAL HISTORY Procedure Laterality Date LAPAROSCOPY SURG CHOLECYSTECTOMY Cholecystectomy, lap LIG/TRNSXJ FLP TUBE ABDL/VAG APPR UNI/BI Tubal ligation ALLERGIES Zithromax [Azithromycin] MEDICATIONS metFORMIN ER (GLUCOPHAGE XR) 500 mg 24 hr tablet Take 2 tablets by mouth daily with breakfast. diclofenac (VOLTAREN) 1 % topical gel Apply 2 g to affected area four times daily. 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 No wheezing, rhonchi, rales. Heart: RRR without murmur, gallop, or rubs. No ectopy Health maintenance reviewed with patient: HEPATITIS B(1 of 3 - 3-dose series) Never done PNEUMOCOCCAL(1 - PCV) Never done DILATED RETINAL EXAM Never done SPIROMETRY Never done HEPATITIS C SCREENING Never done HIV SCREENING Never done DTAP,TDAP,TD(1 - Tdap) Never done MAMMOGRAM Never done COLORECTAL CANCER SCREENING Never done DEPRESSION ASSESSMENT Never done URINE ALBUMIN:CREATININE RATIO due on 11/06/2022 INFLUENZA(1) due on 04/16/2023 COVID-19 VACCINE(3 - Booster for Pfizer series) due on 10/30/2023 DIABETIC FOOT EXAM due on 02/26/2023 HBA1C due on 04/27/2023 ANNUAL PCP TEAM CHRONIC DISEASE VISIT due on 06/09/2023 LDL CHOLESTEROL due on 10/28/2023 PAP TESTING due on 03/25/2026 HPV TESTING due on 03/25/2026 DATA REVIEWED: Most recent labs ASSESSMENT/PLAN: 1. Controlled type 2 diabetes mellitus without complication, without long-term current use of insulin (HCC) - ICD9: 250.00, ICD10: E11.9 (primary diagnosis) Controlled. - Continue current medications Recheck labs in 6 months: - ALBUMIN/CREAT RATIO RND UR - LIPID PANEL BASIC - HGB A1C - ALBUMIN/CREAT RATIO RND UR 2. Mixed hyperlipidemia - ICD9: 272.2, ICD10: E78.2 The 10-year ASCVD risk score (Blaine DK, et al., 2019) is: 12.3% Values used to calculate the score: Age: 47 years Sex: Female Is Non- : No Diabetic: Yes Tobacco smoker: Yes Systolic Blood Pressure: 118 mmHg Is BP treated: No HDL Cholesterol: 48 mg/dL Total Cholesterol: 320 mg/dL - poor control - Begin treatment with atorvastatin (Lipitor) 40 mg - Encouraged following a low fat, low cholesterol diet. - Discussed the benefits of regular aerobic exercise and weight loss. - Check fasting lipid panel in 6 months. - Encouraged following a low carbohydrate, healthy oil intake diet. 3. Tobacco use disorder - ICD9: 305.1, ICD10: F17.200 - Cessation encouraged. - Physiologic and physical aspects of tobacco addiction as well as strategies for quitting were discussed. - Counseling was given focusing on the harmful effects of this addiction especially given the patient's medical condition(s) which will be worsened because of the chemicals in tobacco. - discussed medications to help with smoking cessation, she will try NRT first and let me know if she would like to start something like Chantix or Zyban Prescription instructions reviewed with patient as applicable. Potential red flag symptoms discussed with the patient. Reviewed appropriate action plan to take if red flag symptoms occur. Patient agreeable to treatment plan. Emilie Gibson APRN.CNP documented in this encounter [facility] 10-23-2022 Miscellaneous Notes Nighat is out and would like it called in today if possible. She is scheduled next week with Carolyne for an appointment. Pharmacy verified in [facility] Patient has been identified by name and date of : Yes Patient aware RX will be sent to pharmacy. No need to notify patient. Patient phones for refill(s): Requested Prescriptions Pending Prescriptions Disp Refills metFORMIN ER (GLUCOPHAGE XR) 500 mg 24 hr tablet 60 tablet 11 Sig: Take 2 tablets by mouth daily with breakfast. Date of last office visit : 06/09/2022 Date of next office visit : 10/29/2022 Last 2 Encounter Wt Readings: Date: Wt: 06/09/2022 69.9 kg (154 lb) 05/29/2022 70.2 kg (154 lb 12.8 oz) Not applicable Please advise. Kendra Adrian Pss documented in this encounter [facility] 07-02-2022 History of Present illness Narrative Patient requesting Dr. Martinez on 2021, for her colonoscopy. Sent Bowel Prep Instructions for Golytely to patient's mychart. Liza Gomez PSS 2nd attempt to schedule colonoscopy, patient is waiting for insurance clearance JN 06/23 1st attempt to schedule colonoscopy, full VMB. Sent [employer] message. JN 06/11 This note was created using [employer]. Subjective Nighat العراقي is a 47 year old female. Patient presents with: Follow Up SUBJECTIVE: Nighat العراقي is a 47 year old year old lady here today for 4 month follow up appointment for review of medical conditions. Noted getting over COVID infection. Started last . Positive test Wednesday --results back back last Wednesday. Sinusitis symptoms started 4 days ago. Pain and pressure. Went back to work yesterday. No fevers. Did not take Paxlovid. Did not need. Noted BP fine. Had stopped Afrin. No problems getting getting off med but was not taking daily routinely. Sugars have been fine. Highest last week was 140s after pizza. Arthritis with burning pain in hands, worse since got COVID. But pain in between bones in hand both sides. Hurts to pick things up. Worse on top of hand by index finger PAST MEDICAL HISTORY Diagnosis Date Uncontrolled type 2 diabetes mellitus with hyperglycemia (HCC) 02/09/2020 Current Outpatient Medications Medication Sig metFORMIN ER (GLUCOPHAGE XR) 500 mg 24 hr tablet Take 2 tablets by mouth daily with breakfast. benzonatate (TESSALON PERLES) 100 mg capsule Take 1 capsule by mouth three times daily as needed. (Patient not taking: Reported on 06/09/2022) ondansetron orally disintegrating (ZOFRAN ODT) 4 mg disintegrating tablet Take 1 tablet by mouth every 6 hours as needed for nausea/vomiting. (Patient not taking: Reported on 06/09/2022) Blood Pressure Monitor (BLOOD PRESSURE KIT) 1 Each once daily. No current facility-administered medications for this visit. Review of Systems Objective BP 108/68 Pulse 66 Wt 69.9 kg (154 lb) SpO2 99% BMI 26.43 kg/m Last 5 Encounter Wt Readings: Date: Wt: 06/09/2022 69.9 kg (154 lb) 05/29/2022 70.2 kg (154 lb 12.8 oz) 12/09/2021 69.9 kg (154 lb) 08/13/2021 71.2 kg (157 lb) 07/07/2021 70.8 kg (156 lb) No waist measurement recorded Estimated body mass index is 26.43 kg/m as calculated from the following: Height as of 08/13/21: 162.6 cm (5' 4 ). Weight as of this encounter: 69.9 kg (154 lb). Last 5 Encounter BP Readings: Date: BP: 06/09/2022 108/68 05/29/2022 114/78 12/09/2021 100/62 08/13/2021 126/70 07/07/2021 118/68 Physical Exam Constitutional: Appearance: Normal appearance. HENT: Head: Normocephalic. Eyes: Conjunctiva/sclera: Conjunctivae normal. Cardiovascular: Rate and Rhythm: Normal rate and regular rhythm. Heart sounds: Normal heart sounds. Pulmonary: Effort: Pulmonary effort is normal. Breath sounds: Normal breath sounds. Skin: General: Skin is warm and dry. Neurological: General: No focal deficit present. Mental Status: She is alert and oriented to person, place, and time. Psychiatric: Mood and Affect: Mood normal. Behavior: Behavior normal. Thought Content: Thought content normal. Judgment: Judgment normal. Assessment and Plan ASSESSMENT/PLAN: 1. Acute non-recurrent maxillary sinusitis - ICD9: 461.0, ICD10: J01.00 (primary diagnosis) - Tender sinuses noted. Further evaluation and treatment as indicated. - AMOXICILLIN 875 MG-POTASSIUM CLAVULANATE 125 MG TABLET 2. COVID-19 virus infection - ICD9: 079.89, ICD10: U07.1 Getting over infection but some issues with taste; smell fine now. Just been 5 days today. 3. Controlled type 2 diabetes mellitus without complication, without long-term current use of insulin (HCC) - ICD9: 250.00, ICD10: E11.9 Controlled. - Continue current medications - Labs at her convenience in next month. 4. Screening colonoscopy--filed orders. Bruce Acevedo MD [facility] OPEN ACCESS QUESTIONNAIRE 1. Are you currently having any new or unusual stomach/gastrointestinal issues at this time such as constipation, diarrhea, abdominal pain, rectal bleeding etc?No 2. Do you have any difficulty swallowing? No 3. Do you have any implanted devices such as a defibrillator, pacemaker, cardiac stents or deep brain stimulator? No 4. Do you take any Blood thinners such as Coumadin, Plavix, Xarelto, Eliquis, Brilinta or any other blood thinner? No 5. Do you have any new or past cardiac (heart) or pulmonary (lung) issues? No 6. Do you currently use any oxygen? No 7. Have you been hospitalized in the past 6 weeks? No 8. Have you had difficulty with anesthesia previously re: Difficult intubation? No Other difficulty or allergic reaction to anesthesia other than post op N/V? No 9. Are you on dialysis? No 10. Do you have any bleeding disorders such as hemophilia or Factor 5? No 11. Are you an Insulin Dependent Diabetic? No IF ANY OF THE TOP ELEVEN QUESTIONS ARE ANSWERED YES PLEASE SCHEDULE THE PATIENT FOR A CONSULT. N/A 12. Is the patient's BMI 40 or greater? No:Body mass index is 26.43 kg/m .. 13. Do you take any narcotics or anti-Anxiety medications? No 14. Do you use any illegal or recreational drugs including marijuana? No 15. Any alcohol use: No. 16. Have you been diagnosed with chronic liver disease such as hepatitis or cirrhosis? No 17. Do you have a seizure disorder? No 18. Do you have ulcerative colitis or Crohn's disease? No 19. Are you or could you be ? No 20. Any other important health information we should be made aware of prior to your colonoscopy? No To be completed by LIP: Did patient have MAC anesthesia with a previous endoscopy procedure? No Patient appropriate for Open Access Colonoscopy: Yes: appropriate for Open Access Procedure Checklist: Prior to closing the encounter: Complete questionnaire: Yes Confirm Prep order has been Ordered/Pended: Yes. Patient's procedure could be delayed if not given the script for the prep. Please ensure the prep is escripted to pharmacy or printed. Instructions for the prep will print upon filing or pending this smartset. Please send all open access questionnaires to [facility] Sched Pool #[id number] documented in this encounter [facility] 06-09-2022 Instructions Bruce Acevedo MD - 06/09/2022 3:00 PM EDT Images from the original note were not included. Miralax/Dulcolax Bowel Prep For this bowel preparation, you will need to purchase the following medications at any pharmacy: Over the counter Miralax (generic name is polyethylene glycol) 8.3 oz or 238 grams Four (4) Dulcolax (generic name is Bisacodyl) tablets 3 days prior to your procedure, you need to be on a low fiber diet (Such as popcorn, beans, seeds, nuts, salad and raw vegetables, corn, fresh and dried fruit and multi-grain bread) YOU MUST BE ON CLEAR LIQUIDS FOR 2 FULL DAYS PRIOR TO YOUR COLONOSCOPY Day one which would be two days before your colonoscopy, you will need to be on clear liquids all day. You may have coffee or tea-black only (no cream), clear broths (beef, chicken or vegetable), apple juice, white grape juice, pop, Gatorade, Powerade, lemonade, Jello, popsicles, Andrea-aid, and water-But nothing red or dark purple in color and no dairy products, tomato or orange juices. Day two which would be the day before your colonoscopy continue clear liquids all day as above. And follow the instructions below: 8:00 AM - Mix the Miralax with 64 oz of Gatorade or another clear liquid of choice and place in refrigerator. Most people say the drink is better cold. 4:00 PM - Take 2 of the Dulcolax tablets with 8 oz of water. 6:00 PM - Start to drink the Miralax mixture. You must finish it by midnight. 8:00 PM - Take the other 2 Dulcolax tablets with 8 oz of water. You may continue to drink clear liquids while you are taking your prep and after you finish it as long as it is before midnight. Drink lots of fluids so you don t become dehydrated. Nothing to drink after midnight the night before the procedure unless you are instructed differently by the physician or nurses. Please remember to take your normal medications the morning of the procedure with a small sip of water especially your blood pressure medications. If you are diabetic, you need to contact your physician about how to take your diabetic medications and/or insulin during the prepping period and the day of your procedure. Any questions please call: Dr. Hercules or Dr. Martinez [phone] Miriam Delaney [phone] Dr. Rosa [phone] ASC nurses [phone] documented in this encounter [facility] 06-08-2022 Miscellaneous Notes Pt called and is notified of providers message. Pt voices understanding and reports she no longer needs medication for cough. Vy Garcia RN Rx sent for benzonatate if still needing treatment for cough. Patient calls and states that she recently was seen at urgent care and she tested positive for Covid. Patient is calling today to ask if provider can send her in a prescription to help with her cough? [facility] is pharmacy. Please review and advise, Sherrill Leger RN documented in this encounter [facility] 06-02-2022 Miscellaneous Notes Pt calls to request a copy of Covid results. Results placed in Med Recs for peanut picker as requested. Yadira English LPN documented in this encounter [facility] 05-30-2022 History of Present illness Narrative Nirmatrelvir/Ritonavir (Paxlovid) Eligibility and Patient Discussion [facility] Formulary Restriction Criteria: Adult outpatients 18 years and older with ALL of the following: [x] Patient has positive SARS-COV-2 viral test (PCR or antigen test) during current illness [x] Patient has symptoms for 5 days or less [x] Not requiring hospitalization at any time for management of COVID-19 [x] Not requiring supplemental oxygen or a change in baseline supplemental oxygen [x] Not utilized for pre-exposure or post-exposure prophylaxis for prevention of COVID-19 [x] Patient does not have severe renal impairment (eGFR < 30 mL/min) or severe hepatic impairment (Child-Keith Class C) [x] Meeting at least one of the criteria for high risk of progression to severe COVID-19: [] Age over 65 years [] Cancer [] Chronic kidney disease [] Chronic liver disease [] Chronic lung diseases, including cystic fibrosis [] Dementia or other neurological conditions [x] Diabetes (type 1 or type 2) [] Disabilities, including Down syndrome and neurodevelopmental disorders [] Heart conditions [] HIV infection [] Immunocompromised state [] Mental health conditions [] Medical related technological dependence (tracheostomy, gastrostomy, or positive pressure ventilation (not related to COVID) [] Overweight and obesity (BMI greater or equal to 25 for adults) [] Physical inactivity [] [] Sickle cell disease or thalassemia [] Smoking, current or former [] Solid organ or blood stem cell transplant [] Stroke or cerebrovascular disease [] Substance use disorders [] Tuberculosis [] People from racial and ethnic minority groups Criteria above are met: Yes Date of Positive Test:05.29.2022 Date of Symptom Onset: 05.28.2022 Patient received COVID vaccine: Yes Drug-Drug interactions reviewed: Yes. Drug interactions were identified and the following actions were taken patient states she no longer is on crestor. I have discussed the use of the investigational therapeutic, nirmatrelvir/ritonavir, for the treatment of mild to moderate COVID-19 and its use under Emergency Use Authorization with the patient. The patient was informed that nirmatrelvir/ritonavir is not an FDA approved drug and that it is authorized for use under this Emergency Use Authorization. The patient was also informed of the significant known benefits and potential risks of nirmatrelvir/ritonavir, and the extent to which such potential risks and benefits are unknown. The patient was informed that there is mandatory reporting of all medication errors and serious adverse events potentially related to nirmatrelvir/ritonavir treatment within 7 calendar days from the onset of the event and that events up to 28 days after completion of therapy need to be reported. The discussion included alternatives to receiving nirmatrelvir/ritonavir, including clinical trials, and potential the risks and benefits of those alternatives. The patient was provided electronically with the Fact Sheet for Patients, Parents and Caregivers . The patient was also instructed that in addition to the treatment with nirmatrelvir/ritonavir, he/she should continue to self-isolate and use infection control measures (e.g., wear mask, isolate, social distance, avoid sharing personal items, clean and disinfect high touch surfaces, and frequent handwashing) according to CDC guidelines. The patient stated understanding and gave verbal consent to proceeding with nirmatrelvir/ritonavir treatment. Carine Ugalde APRN.CNP May 30, 2022 2:01 PM documented in this encounter [facility] 05-30-2022 Miscellaneous Notes Pt called in and was asking to have EC call in [facility] for her since she tested positive for Covid. Please call into [facility] in [place]. Images from the original note were not included. Patient calling can see her COVID test results on my chart. abnormal data COVID WITH FLUA+B, ROUTINE Order: [id number] Status: Final result Visible to patient: Yes (seen) Dx: Exposure to COVID-19 virus Specimen Information: UPPER RESPIRATORY TRACT SWAB; Nasal Swab 1 Result Note 1 Patient Communication Component Ref Range & Units 1 d ago COVID 19 Result Not Detected SARS-CoV-2 (Agent of COVID-19) Detected by RT-PCR or equivalent method. Abnormal Comment: rafi [id number] [employer] (CARRIE)_EUA This test was developed and its performance characteristics determined by [facility]'s [facility] [place]. This test has been authorized by FDA under an Emergency Use Authorization (EUA). This test has been validated in accordance with the FDA's Guidance Document Policy for Diagnostics Testing in Laboratories Certified to Perform High Complexity Testing under CLIA prior to Emergency use Authorization for Coronavirus Disease 2019 during the Public Health Emergency issued on December 16, 2019. Test performed by [facility], [facility] [place], [address] [place] [address]. Influenza A PCR Negative for Influenza A by RT-PCR Negative for Influenza A by RT-PCR Influenza B PCR Negative for Influenza B by RT-PCR Negative for Influenza B by RT-PCR Resulting Agency CCM Specimen Collected: 05/29/22 2:09 PM EDT Last Resulted: 05/30/22 2:44 AM EDT Lab Flowsheet Order Details View Encounter Lab and Collection Details Routing Result History View Encounter Conversation Result Care Coordination Result Notes Matias Zambrano APRN.CNP 05/30/2022 8:30 AM EDT Back to Top Patient notified of positive COVID test. Patient Communication Append Comments Seen Back to Top You tested positive for COVID-19 Follow the CDC guidelines for isolation: 1. Everyone, regardless of vaccination status, should stay home for 5 days. ... Written by Matias Zambrano APRN.CNP on 05/30/2022 8:30 AM EDT View Full Comments Seen by patient Nighat العراقي on 05/30/2022 8:41 AM Result Information Flag: Abnormal Abnormal Status: Final result (Resulted: 05/30/2022 2:44 AM) Provider Status: Reviewed Questions Order Question Answer Symptomatic: Yes Date of symptom onset: 05/28/2022 First Test: No Employed in healthcare: No Hospitalized: No Resident in a congregate care setting (nursing homes, psychiatric treatment facilities, group homes, board and care homes, homeless nursing home, foster care or other setting): No : No Is patient a household member of a [facility] Caregiver/Employee? Collection Question Answer Bedded in ICU: COVID WITH FLUA+B, ROUTINE: Result Notes Matias Zambrano APRN.CNP 05/30/2022 8:30 AM EDT Patient notified of positive COVID test. Patient Release Status: This result is viewable by the patient in MyChart. Last viewed in [employer]: 05/30/2022 8:41 AM By: Nighat العراقي Routing History Priority Sent On From To Message Type 05/30/2022 2:44 AM Lab, Background User [facility] Care Provider Pool Results View [employer] Info COVID WITH FLUA+B, ROUTINE (Order #[id number]) on 05/29/22 CAP/CLIA/Joint Commission Regulatory Result Report COVID WITH FLUA+B, ROUTINE (Order #[id number]) on 05/29/22 COVID WITH FLUA+B, ROUTINE: Patient Communication Append Comments Seen You tested positive for COVID-19 Follow the CDC guidelines for isolation: 1. Everyone, regardless of vaccination status, should stay home for 5 days. 2. If you have no symptoms or your symptoms are resolving after 5 days, you can leave your house. 3. Continue to wear a mask around others for 5 additional days. If you have a fever, continue to stay home until your fever resolves, even if it is longer than 5 days. Please monitor your symptoms, and for any worrisome symptoms, call your primary care provider or schedule a visit with [facility]. A test is not recommended to return to work/school when meeting the above criteria. Written by Matias Zambrano APRN.CNP on 05/30/2022 8:30 AM EDT Seen by patient Nighat العراقي on 05/30/2022 8:41 AM Went over results, notes from [facility] provider with understanding. Patient said her employer told her she would have to go back to work tomorrow. Advised needs to follow CDC guidelines. if needed we can fax copy of results to her employer if we have fax number. documented in this encounter [facility] 05-29-2022 Instructions Mindi Coleman APRN.CNP - 05/29/2022 2:02 PM EDT FACT SHEET FOR PATIENTS, PARENTS, AND CAREGIVERS EMERGENCY USE AUTHORIZATION (EUA) OF PAXLOVID FOR CORONAVIRUS DISEASE 2019 (COVID-19) You are being given this Fact Sheet because your healthcare provider believes it is necessary to provide you with PAXLOVID for the treatment of ufye-vg-pagwnuhd coronavirus disease (COVID-19) caused by the SARS-CoV-2 virus. This Fact Sheet contains information to help you understand the risks and benefits of taking the PAXLOVID you have received or may receive. The U.S. Food and Drug Administration (FDA) has issued an Emergency Use Authorization (EUA) to make PAXLOVID available during the COVID-19 pandemic (for more details about an EUA please see What is an Emergency Use Authorization? at the end of this document). PAXLOVID is not an FDA-approved medicine in the [place]. Read this Fact Sheet for information about PAXLOVID. Talk to your healthcare provider about your options or if you have any questions. It is your choice to take PAXLOVID. What is COVID-19? COVID-19 is caused by a virus called a coronavirus. You can get COVID-19 through close contact with another person who has the virus. COVID-19 illnesses have ranged from very gzfj-ql-ofphcd, including illness resulting in . While information so far suggests that most COVID-19 illness is mild, serious illness can happen and may cause some of your other medical conditions to become worse. Older people and people of all ages with severe, long lasting (chronic) medical conditions like heart disease, lung disease, and diabetes, for example seem to be at higher risk of being hospitalized for COVID-19. What is PAXLOVID? PAXLOVID is an investigational medicine used to treat qiiw-xr-lxfpuqld COVID-19 in adults and children [12 years of age and older weighing at least 88 pounds (40 kg)] with positive results of direct SARS-CoV-2 viral testing, and who are at high risk for progression to severe COVID-19, including hospitalization or . PAXLOVID is investigational because it is still being studied. There is limited information about the safety and effectiveness of using PAXLOVID to treat people with sdta-lv-nehihzkn COVID-19. The FDA has authorized the emergency use of PAXLOVID for the treatment of qyio-je-jnutztcc COVID-19 in adults and children [12 years of age and older weighing at least 88 pounds (40 kg)] with a positive test for the virus that causes COVID-19, and who are at high risk for progression to severe COVID-19, including hospitalization or , under an EUA. 1 Revised: 02 January 2022 What should I tell my healthcare provider before I take PAXLOVID? Tell your healthcare provider if you: Have any allergies Have liver or kidney disease Are or plan to become Are a child Have any serious illnesses Tell your healthcare provider about all the medicines you take, including prescription and pgrd-rsp-tozzbjs medicines, vitamins, and herbal supplements. Some medicines may interact with PAXLOVID and may cause serious side effects. Keep a list of your medicines to show your healthcare provider and pharmacist when you get a new medicine. You can ask your healthcare provider or pharmacist for a list of medicines that interact with PAXLOVID. Do not start taking a new medicine without telling your healthcare provider. Your healthcare provider can tell you if it is safe to take PAXLOVID with other medicines. Tell your healthcare provider if you are taking combined hormonal contraceptive. PAXLOVID may affect how your control pills work. Females who are able to become should use another effective alternative form of contraception or an additional barrier method of contraception. Talk to your healthcare provider if you have any questions about contraceptive methods that might be right for you. How do I take PAXLOVID? PAXLOVID consists of 2 medicines: nirmatrelvir and ritonavir. Take 2 pink tablets of nirmatrelvir with 1 white tablet of ritonavir by mouth 2 times each day (in the morning and in the evening) for 5 days. For each dose, take all 3 tablets at the same time. If you have kidney disease, talk to your healthcare provider. You may need a different dose. Swallow the tablets whole. Do not chew, break, or crush the tablets. Take PAXLOVID with or without food. Do not stop taking PAXLOVID without talking to your healthcare provider, even if you feel better. If you miss a dose of PAXLOVID within 8 hours of the time it is usually taken, take it as soon as you remember. If you miss a dose by more than 8 hours, skip the missed dose and take the next dose at your regular time. Do not take 2 doses of PAXLOVID at the same time. If you take too much PAXLOVID, call your healthcare provider or go to the nearest hospital emergency room right away. If you are taking a ritonavir-or cobicistat-containing medicine to treat hepatitis C or Human Immunodeficiency Virus (HIV), you should continue to take your medicine as prescribed by your healthcare provider. Talk to your healthcare provider if you do not feel better or if you feel worse after 5 days. Who should generally not take PAXLOVID? Do not take PAXLOVID if: You are allergic to nirmatrelvir, ritonavir, or any of the ingredients in PAXLOVID You are taking any of the following medicines: Alfuzosin Pethidine, propoxyphene Ranolazine Amiodarone, dronedarone, flecainide, propafenone, quinidine Colchicine Lurasidone, pimozide, clozapine Dihydroergotamine, ergotamine, methylergonovine Lovastatin, simvastatin Sildenafil (Revatio ) for pulmonary arterial hypertension (PAH) Triazolam, oral midazolam Apalutamide Carbamazepine, phenobarbital, phenytoin Rifampin Garceno s Wort (hypericum perforatum) Taking PAXLOVID with these medicines may cause serious or life-threatening side effects or affect how PAXLOVID works. These are not the only medicines that may cause serious side effects if taken with PAXLOVID. PAXLOVID may increase or decrease the levels of multiple other medicines. It is very important to tell your healthcare provider about all of the medicines you are taking because additional laboratory tests or changes in the dose of your other medicines may be necessary while you are taking PAXLOVID. Your healthcare provider may also tell you about specific symptoms to watch out for that may indicate that you need to stop or decrease the dose of some of your other medicines. What are the important possible side effects of PAXLOVID? Possible side effects of PAXLOVID are: Allergic Reactions. Allergic reactions can happen in people taking PAXLOVID, even after only 1 dose. Stop taking PAXLOVID and call your healthcare provider right away if you get any of the following symptoms of an allergic reaction: hives trouble swallowing or breathing swelling of the mouth, lips, or face throat tightness hoarseness skin rash Liver Problems. Tell your healthcare provider right away if you have any of these signs and symptoms of liver problems: loss of appetite, yellowing of your skin and the whites of eyes (jaundice), dark-colored urine, pale colored stools and itchy skin, stomach area (abdominal) pain. Resistance to HIV Medicines. If you have untreated HIV infection, PAXLOVID may lead to some HIV medicines not working as well in the future. Other possible side effects include: altered sense of taste diarrhea high blood pressure muscle aches These are not all the possible side effects of PAXLOVID. Not many people have taken PAXLOVID. Serious and unexpected side effects may happen. PAXLOVID is still being studied, so it is possible that all of the risks are not known at this time. What other treatment choices are there? Veklury (remdesivir) is FDA-approved for the treatment of bpgb-bq-expecnhf COVID-19 in certain adults and children. Talk with your doctor to see if Veklury is appropriate for you. Like PAXLOVID, FDA may also allow for the emergency use of other medicines to treat people with COVID-19. Go to https://www.fda.gov/emergency-prep aredness-andresponse/tdv-cdpds-hit hnfbgtg-lnl-vnerwk-framework/emerg udgw-xpx-xnelencwvnsiq for information on the emergency use of other medicines that are authorized by FDA to treat people with COVID-19. Your healthcare provider may talk with you about clinical trials for which you may be eligible. It is your choice to be treated or not to be treated with PAXLOVID. Should you decide not to receive it or for your child not to receive it, it will not change your standard medical care. What if I am or ? There is keno writer treating women or mothers with PAXLOVID. For a mother and unborn baby, the benefit of taking PAXLOVID may be greater than the risk from the treatment. If you are , discuss your options and specific situation with your healthcare provider. It is recommended that you use effective barrier contraception or do not have sexual activity while taking PAXLOVID. If you are , discuss your options and specific situation with your healthcare provider. How do I report side effects with PAXLOVID? Contact your healthcare provider if you have any side effects that bother you or do not go away. Report side effects to FDA MedWatch at www.fda.gov/medwatch or call 9-467-CKB4193 or you can report side effects to [employer]. at the contact information provided below. Website Fax number Telephone number As It Is How should I store PAXLOVID? Store PAXLOVID tablets at room temperature, between 68?F to 77?F (20?C to 25?C). How can I learn more about COVID-19? Ask your healthcare provider. Visit https://www.cdc.gov/COVID19. Contact your local or state public health department. What is an Emergency Use Authorization (EUA)? The [place] FDA has made PAXLOVID available under an emergency access mechanism called an Emergency Use Authorization (EUA). The EUA is supported by a Digital Marketing Strategist of Health and Human Service (HHS) declaration that circumstances exist to justify the emergency use of drugs and biological products during the COVID-19 pandemic. PAXLOVID for the treatment of niml-yg-odejaozj COVID-19 in adults and children [12 years of age and older weighing at least 88 pounds (40 kg)] with positive results of direct SARS-CoV-2 viral testing, and who are at high risk for progression to severe COVID-19, including hospitalization or , has not undergone the same type of review as an FDA-approved product. In issuing an EUA under the COVID-19 public health emergency, the FDA has determined, among other things, that based on the total amount of scientific evidence available including data from adequate and well-controlled clinical trials, if available, it is reasonable to believe that the product may be effective for diagnosing, treating, or preventing COVID-19, or a serious or life-threatening disease or condition caused by COVID-19; that the known and potential benefits of the product, when used to diagnose, treat, or prevent such disease or condition, outweigh the known and potential risks of such product; and that there are no adequate, approved, and available alternatives. All of these criteria must be met to allow for the product to be used in the treatment of patients during the COVID-19 pandemic. The EUA for PAXLOVID is in effect for the duration of the COVID-19 declaration justifying emergency use of this product, unless terminated or revoked (after which the products may no longer be used under the EUA). Additional Information For general questions, visit the website or call the telephone number provided below. Website Telephone number www.WHDVW16oufrWe[employer] (7-749-G22-WAZM) You can also go to www.iPAYst or call for more information. Pfizer Distributed by [employer] [place] [address] [id number] Revised: 02 January 2022 documented in this encounter [facility] 05-29-2022 History of Present illness Narrative This note was created using [employer]. Subjective Nighat العراقي is a 47 year old female. 47 year old female with PMH NIDDM and alcohol abuse presents with complaints of possible COVID 19. Acute onset of symptoms was one day ago +chills +sore throat +fever + headache +bodyaches +nausea +chills Denies abdominal pain. Denies N/V/D Denies skin rash or lesions. Denies CP. Denies SOB States that her significant other recently tested positive for COVID. +tobacco usage. The history is provided by the patient. No metal room dental technician was used. URI She complains of cough. There is no chest tightness, difficulty breathing, frequent throat clearing, hemoptysis, hoarse voice, shortness of breath, sputum production or wheezing. This is a new problem. The current episode started yesterday. The problem occurs constantly. The problem has been gradually worsening. The cough is non-productive. Associated symptoms include appetite change, a fever, headaches, malaise/fatigue, myalgias, nasal congestion, rhinorrhea and a sore throat. Pertinent negatives include no chest pain, dyspnea on exertion, ear congestion, ear pain, heartburn, orthopnea, PND, postnasal drip, sneezing, sweats, trouble swallowing or weight loss. Her symptoms are aggravated by nothing. Her symptoms are alleviated by nothing. She reports no improvement on treatment. Her symptoms are not alleviated by anxiolytic. Risk factors for lung disease include smoking/tobacco exposure. There is no history of asthma, bronchiectasis, bronchitis, COPD, emphysema or pneumonia. PAST MEDICAL HISTORY Diagnosis Date Uncontrolled type 2 diabetes mellitus with hyperglycemia (HCC) 02/09/2020 PAST SURGICAL HISTORY Procedure Laterality Date LAPAROSCOPY SURG CHOLECYSTECTOMY Cholecystectomy, lap LIG/TRNSXJ FLP TUBE ABDL/VAG APPR UNI/BI Tubal ligation ALLERGIES Zithromax [Azithromycin] MEDICATIONS Blood Pressure Monitor (BLOOD PRESSURE KIT) 1 Each once daily. tiZANidine (ZANAFLEX) 4 mg tablet Take 1 tablet by mouth every 8 hours as needed (muscle spasms). metFORMIN ER (GLUCOPHAGE XR) 500 mg 24 hr tablet Take 2 tablets by mouth daily with breakfast. ondansetron orally disintegrating (ZOFRAN ODT) 4 mg disintegrating tablet Take 1 tablet by mouth every 6 hours as needed for nausea/vomiting. rosuvastatin (CRESTOR) 5 mg tablet Take 1 tablet by mouth daily at bedtime. Start one week after taking diflucan. 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 Negative for diaphoresis and weight loss. HENT: Positive for congestion, rhinorrhea and sore throat. Negative for ear pain, hoarse voice, postnasal drip, sneezing and trouble swallowing. Eyes: Negative for discharge and itching. Respiratory: Positive for cough. Negative for apnea, hemoptysis, sputum production, choking, chest tightness, shortness of breath and wheezing. Cardiovascular: Negative for chest pain, dyspnea on exertion, palpitations, leg swelling and PND. Gastrointestinal: Negative for abdominal pain, diarrhea, heartburn, nausea and vomiting. Musculoskeletal: Positive for myalgias. Negative for arthralgias, back pain and gait problem. Skin: Negative for color change, pallor, rash and wound. Allergic/Immunologic: Negative for environmental allergies, food allergies and immunocompromised state. Neurological: Positive for headaches. Negative for dizziness and facial asymmetry. Hematological: Negative for adenopathy. Does not bruise/bleed easily. Psychiatric/Behavioral: Negative for agitation and behavioral problems. Objective BP 114/78 Pulse 86 Temp 37.6 C (99.6 F) (Tympanic) Resp 18 Wt 70.2 kg (154 lb 12.8 oz) SpO2 98% BMI 26.57 kg/m Physical Exam Vitals and nursing note reviewed. Constitutional: General: She is not in acute distress. Appearance: Normal appearance. She is normal weight. She is not ill-appearing, toxic-appearing or diaphoretic. HENT: Head: Normocephalic and atraumatic. Right Ear: Ear canal and external ear normal. Left Ear: Ear canal and external ear normal. Nose: Nose normal. No congestion or rhinorrhea. Mouth/Throat: Mouth: Mucous membranes are moist. Pharynx: No oropharyngeal exudate or posterior oropharyngeal erythema. Eyes: General: Right eye: No discharge. Left eye: No discharge. Extraocular Movements: Extraocular movements intact. Conjunctiva/sclera: Conjunctivae normal. Pupils: Pupils are equal, round, and reactive to light. Cardiovascular: Rate and Rhythm: Normal rate and regular rhythm. Pulses: Normal pulses. Heart sounds: Normal heart sounds. No murmur heard. No friction rub. Pulmonary: Effort: Pulmonary effort is normal. No respiratory distress. Breath sounds: Normal breath sounds. No stridor. No wheezing, rhonchi or rales. Chest: Chest wall: No tenderness. Abdominal: General: Abdomen is flat. There is no distension. Palpations: Abdomen is soft. There is no mass. Tenderness: There is no abdominal tenderness. There is no right CVA tenderness, left CVA tenderness, guarding or rebound. Hernia: No hernia is present. Musculoskeletal: General: No swelling, tenderness, deformity or signs of injury. Normal range of motion. Cervical back: Normal range of motion and neck supple. No rigidity. Right lower leg: No edema. Left lower leg: No edema. Lymphadenopathy: Cervical: No cervical adenopathy. Skin: General: Skin is warm and dry. Coloration: Skin is not jaundiced or pale. Findings: No bruising, erythema, lesion or rash. Neurological: General: No focal deficit present. Mental Status: She is alert and oriented to person, place, and time. Cranial Nerves: No cranial nerve deficit. Sensory: No sensory deficit. Motor: No weakness. Coordination: Coordination normal. Gait: Gait normal. Psychiatric: Mood and Affect: Mood normal. Behavior: Behavior normal. Thought Content: Thought content normal. Judgment: Judgment normal. Assessment and Plan ASSESSMENT/PLAN: 1. Exposure to COVID-19 virus - ICD9: V01.79, ICD10: Z20.822 Significant other She started with symptoms yesterday. Discussed her eligibility for antivirals She ws provided a handout on Paxlovid If she is positive she is to reach out tomorrow for virtual with PCP - COVID WITH FLUA+B, ROUTINE - ONDANSETRON 8 MG DISINTEGRATING TABLET 2. Viral illness - ICD9: 079.99, ICD10: B34.9 - Discussed viral etiology and rationale for treatment. - Symptomatic treatment with prn analgesia - Supportive care with fluids and rest - The patient may also use OTC cough and cold meds as needed, warm salt water gargles, throat lozenges and/or OTC throat spray as needed, and nasal saline gtts and suction prn. - Follow up in 3-5 days if symptoms persist or sooner if worsening of symptoms Nellfran provided here in clinic today RX provided Mindi Coleman APRN.TWIN documented in this encounter [facility] 02-26-2022 History of Present illness Narrative Per Dr. Wilkerson, Nighat was provided with power step inserts, size 6.5, and instructed/educated in its application, wear, and care. All questions were answered, and patient was able to demonstrate competence with the necessary skills to utilize the above equipment. Rima Jacinto Images from the original note were not included. Initial Office Visit Subjective: This 46 year old female presents to clinic for diabetic foot check. Patient has the following complaints: left heel pain. will presents to clinic with complaint of left heel pain. Patient states that she works two jobs and is on her feet for long duration. Patient does stretching for the plantar fasciitis and that does help but she does not do every day. She does wear inserts and that does help. Patient does complain of painful toneails of b/l feet. Patient admits to being diabetic for 1 years now and states that their blood sugar was 113 mg/dL this AM. Patient -B/T/N in feet at this time. Patient -pain in legs when walking. No other pedal complaints at this time. No change in medications or medical history since last visit. PAIN EVALUATION 02/26/2022 0812 Pain Level: 8 Pain Location: Foot-Left foot- right Description: Burning Duration Amount of Time: 7 Duration Units: Months Frequency: Continuous Intervention/Comfort measure: Medication Hemoglobin A1C (%) Date Value 11/06/2021 5.6 05/02/2021 5.8 08/07/2020 6.1 11/09/2019 9.0 PCP: Bruce Acevedo MD PAST MEDICAL HISTORY Diagnosis Date Uncontrolled type 2 diabetes mellitus with hyperglycemia (HCC) 02/09/2020 Current Outpatient Medications Medication Sig Blood Pressure Monitor (BLOOD PRESSURE KIT) 1 Each once daily. tiZANidine (ZANAFLEX) 4 mg tablet Take 1 tablet by mouth every 8 hours as needed (muscle spasms). metFORMIN ER (GLUCOPHAGE XR) 500 mg 24 hr tablet Take 2 tablets by mouth daily with breakfast. rosuvastatin (CRESTOR) 5 mg tablet Take 1 tablet by mouth daily at bedtime. Start one week after taking diflucan. For cholesterol (Patient not taking: Reported on 07/07/2021 ) No current facility-administered medications for this visit. ALLERGIES Allergen Reactions Zithromax [Azithrom* Hives PAST SURGICAL HISTORY Procedure Laterality Date LAPAROSCOPY SURG CHOLECYSTECTOMY Cholecystectomy, lap LIG/TRNSXJ FLP TUBE ABDL/VAG APPR UNI/BI Tubal ligation FAMILY HISTORY Problem Relation Age of Onset Alcohol/Drug Mother other (Rheumatoid arthritis) Maternal Aunt Social History Tobacco Use Smoking status: Current Every Day Smoker Packs/day: 0.50 Types: Cigarettes Smokeless tobacco: Never Used Tobacco comment: down to 5 cigarettes daily Vaping Use Vaping Use: Never used Substance Use Topics Alcohol use: Not Currently Drug use: Not Currently Comment: 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 SKIN: Negative for lesions, rash, and itching. HEMATOLOGY/LYMPHOLOGY Negative for prolonged bleeding, bruising easily, and swollen nodes. ENDOCRINE: Negative for cold or heat intolerance, polyuria, polydipsia and goiter. NEURO: negative The remainder of the review of systems is noncontributory. Objective: Patient presents to clinic ambulating in [facility] Constitutional: Pt is a well developed 46 year old female who is alert, oriented, cooperative and in no apparent distress. Eyes: Following during examination. No redness or drainage. Respiratory: RR normal and nonlabored. Even breathing. No evidence of distress. Psychology: Patient is engaged during conversation. Normal affect and mood. Does not appear depressed or anxious. Vasc: DP and PT pulses are palpable bilateral. CFT is less than 5 seconds bilateral. Skin temperature is warm to warm proximal to distal bilateral. There is no edema or varicosities noted. Hair growth present. Neuro: Protective sensation is intact to the foot and toes when tested with the 5.07 SWM bilateral. Vibratory sensation is decreased at the hallux bilateral. Derm: Inspection and palpation performed. Nails 1-5 b/l are painful, discolored-yellow, thick, crumbly, dystrophic and with subungal debris. B/l hallux toenail is ingrowing with pain. Skin is of normal turgor and texture. Hyperkeratosis noted to not present. NO ulcerations, scars, verruca or other lesions noted. Ortho: Ankle joint DF is full with the knee extended and full with knee flexed. No pain or crepitus noted. STJ, MTJ ROM are full and free of pain or crepitus. Muscle strength is 5/5 for dorsiflexors, plantarflexors, inverters, everters. Digital deformities include no. Pain present to left medial calcaneal tubercle Assessment: (E11.49) Other diabetic neurological complication associated with type 2 diabetes mellitus (HCC) (primary encounter diagnosis) (M72.2) Plantar fasciitis (B35.1) Onychomycosis (M79.675) Pain in toe of left foot (M79.674) Pain in toe of right foot Plan: 1. A thorough review of the patient's PMH and Podiatric physical exam was completed. 2. Patient advised to perform stretching excercises, icing, and to make appropriate shoe gear changes to include wearing athletic-type shoes with supportive insoles. No barefoot walking. Patient also given written instructions on how to correctly perform the stretching of the achilles tendon/calf stretches, and the heel spur/plantar fasciitis regimen. 3. Patient advised to seek wide, deep toe box, accomodative, comfortable, lace-up, athletic/walking type footwear that includes motion control characteristics for support and cushion that need to be worn at all times when weight-bearing. Shoes should be tested for torsional stability as well as proper bending at the toebox rather than at the midfoot. Good quality shoes such as, but not limited to, New Balance or Asics are examples of more proper foot gear. 4. Patient recommended to get powerstep insoles for proper support of the arch in order to alleviate the tension and stress on the plantar fascia associated with normal daily walking. Patient advised that these modalities used in conjunction with stretching and icing are able to alleviate most symptoms from this condition. 5. If symprtoms fail to improve, consider injection. 6. Diabetic foot exam performed. 7. Toenails 1-5 b/l debrided in length and thickness. If pain in b/l hallux continues, could consider matrixectomy of b/l hallux medial and lateral nail border 8. F/u in 1 year or sooner if problems arise. Astrid Wilkerson DPM documented in this encounter [facility] 02-26-2022 Instructions Astrid Wilkerson - 02/26/2022 8:35 AM EDT Images from the original note were not included. What is Plantar Fasciitis? Plantar fasciitis is the most common cause of heel pain. The pain is caused by inflammation of the plantar fascia. If you strain your plantar fascia, it becomes weak, swollen and irritated (inflamed). The resulting pain may be isolated in the heel or may appear at different points on the bottom of the foot, from time to time; it may occur in one foot or both. Some think that plantar fasciitis pain is caused by irritation of nerves from tissue swelling or inflammation, but it is debatable. Plantar fasciitis is common in middle-aged people; it also occurs in younger people who are on their feet a lot, such as athletes or soldiers. The plantar fascia is a strong band of connective tissue that extends from the base of the toes, along the bottom of the foot, to the bottom of the heel (calcaneous bone); it acts like a bowstring to maintain the arch of the foot. What are heel spurs? The inflammatory reaction of the heel bone may produce spike-like projections of new bone, called heel spurs. The spurs sometimes show on X-rays. They neither cause the initial pain nor do they cause the initial problem. However, later, having to walk on spurs may cause sharp pain. What causes plantar fasciitis? Plantar fasciitis is caused by straining the ligament that supports your arch. Repeated strain can cause tiny tears in the ligament. These lead to pain and swelling. During walking, the plantar fascia experiences tension up to twice the body weight with each step. While this is normal, those who spend much time on their feet, such as nurses, surveillance supervisor/waiters, and mail carriers, often experience plantar fasciitis. Athletes involved in tennis or other racquet sports, race walking, jogging or running also show a higher incidence of plantar fasciitis than do those participating in other activities. Thus, it's clear that plantar fasciitis is predominantly an overuse injury. In fact, any activity that results in prolonged tension and stress on the plantar fascia may cause plantar fasciitis. It is possible that changes in footwear may play a role in causing plantar fasciitis, no matter what activity is occurring. Those who are overweight are prone to plantar fasciitis. This is true even for sedentary people who get little physical activity. Abnormalities of the foot and ankle joints may predispose some individuals to development of plantar fasciitis (specifically, over pronation of the subtalar joint). Contributing Factors * Flat feet * Toe running, hill running * Sudden weight increase * High-arched, rigid feet * Soft terrain, e.g. running on sand * Obesity * Pronated feet (rolled inward) * Sudden increase in activity * Family tendency * Poor shoe support * Worn out or poorly fitted shoes * Increasing age * Walking, standing or running for long periods of time, especially on hard surfaces. How is the Injury Treated? Rest Your Feet: Limit, or if possible, stop activities that are causing your heel pain. Try to avoid running or walking on hard surfaces, such as concrete. Use pain as your guide. If your foot is too painful, rest it. Ice: Ice the sore area for 30 to 60 minutes, several times a day, to reduce inflammation and relieve pain. Apply a plastic bag of crushed ice (or a bag of frozen peas) over a towel. Ice the sore area for 15 minutes after activity/exercise. Application of heat is not generally recommended, as heat expands the bone and connective tissue, perhaps exerting greater pressure on nerves and thereby increasing pain. If heat is used, follow it with ice. Medication: If your condition developed recently, anti-inflammatory/analgesic medication, combined with heel pads (see below) may be all that is necessary to relieve pain and to reduce inflammation. If no pain relief has occurred after 2-3 weeks, however, your doctor may inject either cortisone or local anesthetic directly into the tender area. Exercises: Do simple exercises, such as calf stretches and towel stretches (see below) several times a day, especially when you first get up in the morning. These can help your ligament become more flexible and strengthen the muscles that support your arch. Shoes: Poorly fitting shoes can cause plantar fasciitis. The best type of shoe to wear is a good walking or running shoe with good shock absorption and excellent arch support. You should choose the one that fits the best. [place] with your athletic shoes to find a pair that is comfortable and causes fewer symptoms. Put your shoes on as soon as you get out of bed; going barefoot or wearing slippers may make your pain worse. Good brands include (but are not limited to): New Balance, Asics, Saucony, SAS and Merrel s. Taping: Your doctor may tape your foot to maintain the arch. This takes some of the tension off the plantar fascia. Weight Loss: If your weight is putting extra stress on your feet, your doctor may encourage you to try a weight-loss program. Orthotics: An orthotic insole is a molded piece of rubber, plastic, or other material that you insert into your shoe. It corrects the alignment of your foot and cushions your foot from excessive pounding. These may be prescription or non-prescription. Prescription orthotics are custom-fitted and may fit better and control pain better, but are very expensive. Night Splints: A night splint holds the foot with the toes pointed up and the ankle at a 90-degree angle. This position applies a constant, gentle stretch to the plantar fascia. Corticosteroid Shots: Steroids may be injected into the tender area to reduce inflammation. REHAB Exercises to stretch the plantar fascia, the calf muscles, and the Achilles tendon. Tightness of the muscles of the calves may contribute to plantar fasciitis, so stretching the calf muscles is important to rehabilitation, as is stretching of the plantar fascia itself. Plantar fascial stretches Assisted Dorsiflexion/Plantar Fascia Stretch: Sit on the floor or ground, barefoot, with both legs outstretched. Use a towel or elastic band and wrap it around the ball (and not the toes) of the affected foot. Use the towel or elastic band to provide resistance to upward movement of the forefoot. Pull foot upward (toward your body) with the help of the elastic band or towel, and then return to the starting position. Ten repetitions are recommended. Perform the sequence at least three times a day. Alternate Plantar Fascia Stretch: Sit upright in a chair, barefoot. Place the ankle of the affected foot on your opposite knee. Using the same hand as the affected foot, reach across and grab the toes. Flex the ankle toward and pull the toes toward the caruso. To test the stretch, place the thumb of your hand on the bottom of the foot. You should be able to feel the cord-like plantar fascia, running the length of the foot. Hold the stretch for a count of 10, then relax. Repeat 10 times. Do the sequence at least three times a day. Achilles/Calf Stretches Strengthening the muscles of the calves may contribute to successful rehabilitation of plantar fasciitis, as well as prevent reoccurrence. The exercises below will help strengthen the calf muscles. Calf and Achilles Tendon Stretch (Gastrocnemius Stretch): Face a wall, standing an arm's length away. Place one foot back. Place both hands on the wall. Bend the elbows and knee of your forward leg, keeping the heel of the backward foot on the floor and keeping your body straight (aligned), until your forehead nearly touches the wall, or until significant stretch is felt in the muscles of the calf of the backward leg. Hold this position for 10 to 15 seconds. Extend elbows (straighten your arms and stand upright again) and maintain this position for 10 seconds. Repeat this cycle 15 to 20 times. Switch legs and repeat the exercise. Powerstep Original Full length. Can purchase at [employer] here in [employer], [employer] in [place] or [employer]. Also can find in [place] in [facility]. Powersteps can also be purchased online, starting around $25.00 If you have a metatarsal or dancer pad for your feet apply the pad directly to the insole so you can interchange between your shoes. Find a shoe with a removable insole and take this out and replace with your powerstep insole. Always bring powersteps with you when shopping for shoes so that you can make sure that everything fits well together Diabetes Foot Care Instructions When you have diabetes, proper foot care is very important. Poor foot care may lead to amputation of a foot or leg. As a person with diabetes, you are more vulnerable to foot problems, because diabetes can damage your nerves and reduce blood flow to your feet. Here are some diabetes foot care tips to follow: Wash and Dry Your Feet Daily Use mild soaps Use warm water Pat your skin dry; do not rub. Thoroughly dry your feet. After washing, use lotion on your feet to prevent cracking. Do not put lotion between your toes. Examine Your Feet Each Day Check the tops and bottoms of your feet. Have someone else look at your feet if you cannot see them. Check for dry, cracked skin. Look for blisters, cuts, scratches, or other sores. Check for redness, increased warmth, or tenderness when touching any area of your feet. Check for ingrown toenails, corns, and calluses. If you get a blister or sore from your shoes, do not pop it. Apply a bandage and wear a different pair of shoes. Take Care of Your Toenails Cut toenails after bathing, when they are soft. Cut toenails straight across and smooth with a nail file. Avoid cutting into the corners of toes. Do not cut cuticles. If you have neuropathy (or decreased sensation in your feet) a inverted block operator should always cut your toenails. Be Careful When Exercising Walk and exercise in comfortable shoes. Do not exercise when you have open sores on your feet. Protect Your Feet With Shoes and Socks Never go barefoot. Always protect your feet by wearing shoes or hard-soled slippers or footwear. Avoid shoes with high heels and pointed toes. Avoid shoes that expose your toes or heels (such as open-toed shoes or sandals). These types of shoes increase your risk for injury and potential infections. Try on new footwear with the type of socks you usually wear. Do not wear new shoes for more than an hour at a time. Change your socks daily. Look and feel inside your shoes before putting them on to make sure there are no foreign objects or rough areas. Avoid tight socks. Wear natural-fiber socks (cotton, wool, or a cotton-wool blend). Wear special shoes if your health care provider recommends them. Wear shoes/boots that will protect your feet from various weather conditions (cold, moisture, etc.). Make sure your shoes fit properly. If you have neuropathy (nerve damage), you may not notice that your shoes are too tight. Perform the footwear test described below. Footwear Test Use this simple test to see if your shoes fit correctly: Stand on a piece of paper. (Make sure you are standing and not sitting, because your foot changes shape when you stand.) Trace the outline of your foot. Trace the outline of your shoe. Compare the tracings: Is the shoe too narrow? Is your foot crammed into the shoe? The shoe should be at least 1/2 inch longer than your longest toe and as wide as your foot. Proper Shoe Choices The following types of shoes are best for people with diabetes Closed toes and heels Leather uppers without a seam inside At least 1/2 inch extra space at the end of your longest toe Inside of shoe should be soft with no rough areas Outer sole should be made of stiff material Shoes should be at least as wide as your feet Tips for Foot Care in Diabetes Don't wait to treat a minor foot problem if you have diabetes. Follow your health care provider's guidelines and first aid guidelines. Report foot injuries and infections to your health care provider immediately. Check water temperature with your elbow, not your foot. Do not use a heating pad on your feet. Do not cross your legs. Do not self-treat your corns, calluses, or other foot problems. Go to your health care provider or inverted block operator to treat these conditions. documented in this encounter [facility] 01-22-2022 Miscellaneous Notes Order faxed to Rubina at [facility] [place] Rubina from [facility] calling asking for hard copy of BP monitor to be faxed to [phone] for insurance billing purposes please. Reset rx to print. Please advise Spoke with patient and let her know BP machine was sent to the pharmacy. She states that she was checking her blood pressures on the BP machine at [facility] and reading were like 163/102, 185/163 and HR was around 75. Patient was instructed to peanut picker BP machine and if BP was consistent with those reading she is to call office and make an appointment to be seen. Who checked her BP? What are numbers? What is HR? Rx sent for BP cuff to [facility]. Pt called in and reports that the last week to week and a half her BP has been going up and down. She is asking if provider would send a BP cuff through for her. Let Pt know if she did not have a diagnosis associated with her BP her insurance may not cover it. Please call Pt if this is the case. Patient has been identified by name and date of : Yes Patient phones for refill(s): Pending Prescriptions Disp Refills BLOOD PRESSURE MONITOR KIT Date of last office visit in primary care: 12/09/21 Future visit: 04/14/22 Last 2 Encounter Wt Readings: Date: Wt: 12/09/2021 69.9 kg (154 lb) 08/13/2021 71.2 kg (157 lb) Previous labs/tests for medication: Blood Pressure: BUN (mg/dL) Date Value 05/02/2021 9 Sodium (mmol/L) Date Value 05/02/2021 140 Last 1 Encounter BP Readings: Date: BP: 12/09/2021 100/62 Please advise. Thank you. Vy Garcia RN documented in this encounter [facility] documented in this encounter [facility] Diagnosis Other diabetic neurological complication associated with type 2 diabetes mellitus (HCC)- Primary Plantar fasciitis Plantar fascial fibromatosis Onychomycosis Dermatophytosis of nail Pain in toe of left foot Pain in limb Pain in toe of right foot Pain in limb documented [facility] Diagnosis Encounter for screening mammogram for breast cancer [facility] Diagnosis Exposure to COVID-19 virus- Primary Viral illness Unspecified viral infection, in conditions classified elsewhere and of unspecified site [facility] Diagnosis COVID- Primary [facility] Diagnosis Acute non-recurrent maxillary sinusitis- Primary COVID-19 virus infection Controlled type 2 diabetes mellitus without complication, without long-term current use of insulin (HCC) Pain in both hands Special screening for malignant neoplasms, colon [facility] Diagnosis Uncontrolled type 2 diabetes mellitus with hyperglycemia (HCC) [facility] Diagnosis Controlled type 2 diabetes mellitus without complication, without long-term current use of insulin (HCC)- Primary Mixed hyperlipidemia Tobacco use disorder Alcohol abuse, in remission Nondependent alcohol abuse, in remission [facility] Diagnosis Other diabetic neurological complication associated with type 2 diabetes mellitus (HCC)- Primary Onychomycosis Dermatophytosis of nail Pain in toe of left foot Pain in limb Pain in toe of right foot Pain in limb Hammer toe of right foot [facility] Diagnosis Other diabetic neurological complication associated with type 2 diabetes mellitus (HCC)- Primary Onychomycosis Dermatophytosis of nail Pain in toe of left foot Pain in limb Pain in toe of right foot Pain in limb [facility] Diagnosis Special screening for malignant neoplasms, colon documented in this encounter [facility] for referral (narrative)* Diagnostic Procedure Only (Routine) - Pending Review Specialty Diagnoses / Procedures Referred By Saadia mendoza Referred To Contact [facility] Diagnoses Encounter for screening mammogram for breast cancer Procedures CRISTINO SCREENING SCREENING MAMMOGRAPHY BI 2-VIEW BREAST INC CAD Bruce Acevedo MD [facility] [place] [address] [facility] [address] [place] [address] Referral ID Status Reason Start Date Expiration Date Visits Requested Visits Authorized [id number] Pending Review Auto-Generat ed Referral 04/15/2022 05/15/2023 1 1 [facility] for referral (narrative)* Outpatient Procedure (Routine) - Authorized Specialty Diagnoses / Procedures Referred By Contnicanor mendoza Referred To Contact [facility] Diagnoses Special screening for malignant neoplasms, colon Procedures COLONOSCOPY SCREENING COLONOSCOPY FLX DX W/COLLJ SPEC WHEN PFRMD Bruce Acevedo MD [address] [place] [id number] [facility] [address] [place] [address] Referral ID Status Reason Start Date Expiration Date V isits Requested Visits Authorized [id number] Authorized 06/09/2022 06/09/2023 1 1 * Medication Prior Authorization - Closed Specialty Diagnoses / Procedures Referred By Saadia mendoza Referred To Contact Bruce Acevedo MD [address] [place] [address] Referral ID Status Reason Start Date Expiration Date Visits Re quested Visits Authorized [id number] Closed 1 1 [facility] for referral (narrative)* Outpatient Procedure (Routine) - Closed Specialty Diagnoses / Procedures Referred By Saadia mendoza Referred To Contact [facility] Diagnoses Special screening for malignant neoplasms, colon Procedures COLONOSCOPY SCREENING COLONOSCOPY FLX DX W/COLLJ SPEC WHEN Bruce Persaud MD [address] [place] [address] [facility] [address] [address] Referral ID Status Reason Start Date Expiration Date Visits Re quested Visits Authorized [id number] Closed 06/09/2022 06/09/2023 1 1 [facility] for visit Narrative* Outpatient Procedure (Routine) - Closed Specialty Diagnoses / Procedures Referred By Saadia mendoza Referred To Contact [facility] Diagnoses Special screening for malignant neoplasms, colon Procedures COLONOSCOPY SCREENING COLONOSCOPY FLX DX W/[place] [address] [place] [id number] [facility] [address] [address] Referral ID Status Reason Start Date Expiration Date Visits Re quested Visits Authorized [id number] Closed 06/09/2022 06/09/2023 1 1 [facility] Medications Administered Section Inactive Administered Medications - up to 3 most recent administrations Medication Order MAR Action Action Date Dose Rate Site ondansetron orally disintegrating 8 mg tab(s) (ZOFRAN ODT) 8 mg, ORAL, ONCE, 1 dose, On 8/12/22 at 1430, Place tablet on tongue and allow to dissolve; do not chew. Open packaging using dry hands; do not push tablet through packaging. Given 05/29/2022 2:09 PM EDT 8 mg Inactive Administered Medications - up to 3 most recent administrations Medication Order MAR Action Action Date Dose Rate Site diphenhydrAMINE 12.5-50 mg injection (BENADRYL) 12.5-50 mg, INTRAVENOUS, DIRECTED, Starting on Wed12/08/22 at 0800, Until Wed12/08/22 at 1159, DOSING DIRECTED BY PHYSICIAN FOR PROCEDURAL SEDATION ONLY, Intraprocedure Given by LIP 12/08/2022 7:56 AM EST 50 mg fentaNYL 50 mcg/mL 25-100 mcg injection (SUBLIMAZE) 25-100 mcg, INTRAVENOUS, DIRECTED, Starting on Wed12/08/22 at 0800, Until Wed12/08/22 at 1159, DOSING DIRECTED BY PHYSICIAN FOR PROCEDURAL SEDATION ONLY, Intraprocedure Given by LIP 12/08/2022 7:55 AM EST 50 mcg Health Concerns Infection Onset Date Last Indicated Resolved Time COVID-19 Rule-Out 05/29/2022 05/29/2022 Infection Onset Date Last Indicated Resolved Time COVID-19 Rule-Out 05/29/2022 05/29/2022 05/30/2022 2:44 AM EDT COVID-19 Confirmed 05/29/2022 05/29/2022 Infection Onset Date Last Indicated Resolved Time COVID-19 Confirmed 05/29/2022 05/29/2022 Infection Onset Date Last Indicated Resolved Time COVID-19 Confirmed 05/29/2022 05/29/2022 8:51 PM EDT Summary Purpose Family History No Family History Records Found Advance Directives No Advanced Directives Records Found Additional Source Comments Source Comments (unrecognize d section and content) In the event this informatio n is protected by the Federal Confidentiality of Alcohol and Drug Abuse Patient Records regulations: The Federal rules restrict any use of the information to criminally investigate or prosecute any alcohol or drug abuse patient.[facility] the event this information is protected by the Federal Confidentiality of Alcohol and Drug Abuse Patient Records regulations: The Federal rules restrict any use of the information to criminally investigate or prosecute any alcohol or drug abuse patient.[facility] the event this information is protected by the Federal Confidentiality of Alcohol and Drug Abuse Patient Records regulations: The Federal rules restrict any use of the information to criminally investigate or prosecute any alcohol or drug abuse patient.[facility] the event this information is protected by the Federal Confidentiality of Alcohol and Drug Abuse Patient Records regulations: The Federal rules restrict any use of the information to criminally investigate or prosecute any alcohol or drug abuse patient.[facility] the event this information is protected by the Federal Confidentiality of Alcohol and Drug Abuse Patient Records regulations: The Federal rules restrict any use of the information to criminally investigate or prosecute any alcohol or drug abuse patient.[facility] the event this information is protected by the Federal Confidentiality of Alcohol and Drug Abuse Patient Records regulations: The Federal rules restrict any use of the information to criminally investigate or prosecute any alcohol or drug abuse patient.[facility] the event this information is protected by the Federal Confidentiality of Alcohol and Drug Abuse Patient Records regulations: The Federal rules restrict any use of the information to criminally investigate or prosecute any alcohol or drug abuse patient.[facility] the event this information is protected by the Federal Confidentiality of Alcohol and Drug Abuse Patient Records regulations: The Federal rules restrict any use of the information to criminally investigate or prosecute any alcohol or drug abuse patient.[facility] the event this information is protected by the Federal Confidentiality of Alcohol and Drug Abuse Patient Records regulations: The Federal rules restrict any use of the information to criminally investigate or prosecute any alcohol or drug abuse patient.[facility] the event this information is protected by the Federal Confidentiality of Alcohol and Drug Abuse Patient Records regulations: The Federal rules restrict any use of the information to criminally investigate or prosecute any alcohol or drug abuse patient.[facility] the event this information is protected by the Federal Confidentiality of Alcohol and Drug Abuse Patient Records regulations: The Federal rules restrict any use of the information to criminally investigate or prosecute any alcohol or drug abuse patient.[facility] the event this information is protected by the Federal Confidentiality of Alcohol and Drug Abuse Patient Records regulations: The Federal rules restrict any use of the information to criminally investigate or prosecute any alcohol or drug abuse patient.[facility] the event this information is protected by the Federal Confidentiality of Alcohol and Drug Abuse Patient Records regulations: The Federal rules restrict any use of the information to criminally investigate or prosecute any alcohol or drug abuse patient.[facility] the event this information is protected by the Federal Confidentiality of Alcohol and Drug Abuse Patient Records regulations: The Federal rules restrict any use of the information to criminally investigate or prosecute any alcohol or drug abuse patient.[facility] the event this information is protected by the Federal Confidentiality of Alcohol and Drug Abuse Patient Records regulations: The Federal rules restrict any use of the information to criminally investigate or prosecute any alcohol or drug abuse patient.[facility] the event this information is protected by the Federal Confidentiality of Alcohol and Drug Abuse Patient Records regulations: The Federal rules restrict any use of the information to criminally investigate or prosecute any alcohol or drug abuse patient.[facility] the event this information is protected by the Federal Confidentiality of Alcohol and Drug Abuse Patient Records regulations: The Federal rules restrict any use of the information to criminally investigate or prosecute any alcohol or drug abuse patient.[facility] Reason for Visit (unrecogniz ed section and content) Reason Comments Established Patient Toenail care Reason Comments Fever Fever, chills, body aches, ST and [place] x 1 day Reason Comments Results Reason Comments Covid Follow Up Reason Comments Patient Question Reason Comments Follow Up Reason Onset Date Comments Refill Request 10/23/2022 Reason Comments follow up - labs Reason Comments Established Patient Follow Up Pain Reason Comments Medication Question Reason Comments Orders Reason Comments Established Patient Follow Up Diabetic Foot Care Care Teams (unrecognized sec tion and content) Laboratory Technician Relationship Specialty Start Date End Date Bruce Acevedo MD [facility] [place] [address] PCP - General Internal Medicine 11/09/19 Laboratory Technician Relationship Specialty Start Date End Date Bruce Acevedo MD [address] [place] [id number] PCP - General Internal Medicine 11/09/19 Laboratory Technician Relationship Specialty Start Date End Date Bruce Acevedo MD [address] [place] [id number] PCP - General Internal Medicine 11/09/19 Laboratory Technician Relationship Specialty Start Date End Date Bruce Acevedo MD [address] [place] [id number] PCP - General Internal Medicine 11/09/19 Laboratory Technician Relationship Specialty Start Date End Date Bruce Acevedo MD [address] [place] [id number] PCP - General Internal Medicine 11/09/19 Laboratory Technician Relationship Specialty Start Date End Date Bruce Acevedo MD [address] [place] [address] PCP - General Internal Medicine 11/09/19 Laboratory Technician Relationship Specialty Start Date End Date Bruce Acevedo MD [address] [place] [address] PCP - General Internal Medicine 11/09/19 Laboratory Technician Relationship Specialty Start Date End Date Bruce Acevedo MD [address] [place] [address] PCP - General Internal Medicine 11/09/19 Laboratory Technician Relationship Specialty Start Date End Date Bruce Acevedo MD [facility] [place] [address] PCP - General Internal Medicine 11/09/19 Laboratory Technician Relationship Specialty Start Date End Date Bruce Acevedo MD [address] [place] [address] PCP - General Internal Medicine 11/09/19 Laboratory Technician Relationship Specialty Start Date End Date Bruce Acevedo MD [facility] [place] [address] PCP - General Internal Medicine 11/09/19 Laboratory Technician Relationship Specialty [place] [address] [place] [address], [place] [address] PCP - General Internal Medicine 11/09/19 Laboratory Technician Relationship Specialty [place] [address] [place] [address], [place] [address] PCP - General Internal Medicine 11/09/19 Laboratory Technician Relationship Specialty Start Date End Date Bruce Acevedo MD [address] [place] [address] PCP - General Internal Medicine 11/09/19 INFORMATION SOURCE (unrecogn ized section and content) FOR RECORDS PERTAINING TO PATIENTS WHO ARE OR HAVE BEEN ENROLLED IN A CHEMICAL DEPENDENCY/SUBSTANCEABUSE PROGRAM, SOME INFORMATION MAY BE OMITTED. This clinical summary was aggregated from multiple sources. Caution should be exercised in using it in the provision of clinical care. This summary normalizes information from multiple sources, and as a consequence, information in this document may materially change the coding, format and clinical context of patient data. In addition, data may be omitted in some cases. CLINICAL DECISIONS SHOULD BE BASED ON THE PRIMARY CLINICAL RECORDS. [employer] [facility] provides no warranty or guarantee of the accuracy or completeness of information in this document.
--- NOTE | 2023-12-03 21:58 | PCM.HP.STD ---
HPI - General General Date of Admission: 12/03/23 Date of Service: 12/03/23 Chief Complaint: Fall onto Right Rib Cage. HPI Narrative NEREYDA العراقي, is a 48 F with a past medical history of DM-2; of unknown control on Metformin, history of cholecystectomy, history of tobacco abuse and history of EtOH abuse who presents to [facility] ER complaining fall onto her Right rib cage. Ms. العراقي reports her symptoms began approximately one hour prior to arrival when she slipped and fell down 2 steps and then landing onto her Right rib cage. She then crawled to ask her for help who then brought her in for further evaluation and treatment. She denies associated head injury, fever, chills, nausea or vomiting but she does admit to diffuse pain over her Right rib cage with CT of the chest in the ER revealing a minimally displaced acute fracture of the Right posterior 8th rib with an ~10% Pneumothorax with oxygen saturation of 97% on RA and with pain improved after ibuprofen and [place] with general surgeon recommending patient be observed overnight with patient noted to have a blood alcohol concentration of 119 mg/dL present on admission consistent with acute alcohol intoxication which likely greatly contributed to her fall. She was then admitted to the general medical floor under observation status for ongoing care for a stay that is expected to be less than 48 hours. [facility] Medical History Diabetes Home Medications metformin 500 mg tablet 1,000 mg PO DAILY 01/28/21 [History Last Taken Unknown] Allergy/AdvReac Type Severity Reaction Status Date / Time azithromycin Allergy Hives Verified 12/03/23 20:35 Surgical History History of cholecystectomy Social History Smoking Status: Current every day smoker tobacco type: cigarettes ROS ROS Narrative Review of systems: General: Patient denies fever or chills HENT: Denies headache, denies stuffy nose, denies sore throat EYES: Denies changes in vision or discharge from eyes Resp: Denies cough, denies shortness of breath Cardiac: Denies chest pain or palpitations GI: Denies abdominal pain, denies changes in bowel, denies nausea or vomiting : Denies changes in urination Extremity: Denies swelling Musculoskeletal: Feels somewhat generally weak and unwell Neuro: Denies any numbness/tingling but her blood alcohol concentration 119 is consistent with acute intoxication Heme: Patient admits to bruising over her right rib cage Skin: Denies rashes Psychiatric: No complaints voiced related to uncontrolled depression or anxiety but patient insists she is not an alcoholic Endocrine: No polyuria, polyphagia or polydipsia The rest of the 14 point ROS was negative except for positives in HPI. Vital Signs Vital Signs Vital Signs: 12/03/23 20:32 12/03/23 20:38 Temperature 97.9 F Temperature Source Temporal Pulse Rate 79 Respiratory Rate 18 Respiratory Effort Normal Non-Labored Respiratory Pattern Normal Blood Pressure 120/65 Blood Pressure Mean 83 Pulse Ox 97 Oxygen Delivery Method Room Air Room Air Weight Weight: 74 lb 8 oz Body Mass Index (BMI) 12.7 Physical Exam Const alert and oriented x3 Constitutional Narrative: Patient appears to be uncomfortable in bed. General Appearance: cooperative HEENT normocephalic, head/scalp atraumatic, hearing grossly normal bilaterally and moist oral mucous membranes Eyes PERRL, EOMs intact bilaterally and conjunctivae normal Neck no lymphadenopathy and supple Resp normal respiratory effort, no retractions, no use of accessory muscles and clear to auscultation bilaterally Cardio regular rate and regular rhythm GI normal to inspection, nondistended, normoactive bowel sounds, soft to palpation, non-tender and non-distended Extremity normal to inspection and full ROM Skin Skin Narrative: Patient has hematoma over the Right posterior rib cage. Neuro oriented x3, CN's II-XII intact bilaterally, moves all extremities and no focal motor deficits Sensorium / Orientation: awake, alert, oriented to person, oriented to place and oriented to time Speech: speech normal Motor Exam: strength 5/5 throughout Psych affect normal Results Medical Records Data Attestation: I reviewed the patient's medical records Lab / Micro Data Attestation: I reviewed the patient's lab results. Imaging Radiology Impression Chest CT 12/03/23 20:44 IMPRESSION: Minor bibasilar atelectasis within the dependent portion of the lungs slightly more pronounced on the right in association with very small multi loculated pneumothorax secondary to minimally displaced acute fracture of the posterior right eighth rib Electronically Signed: Leo Sullivan MD at 21:23 EST Reading Location ID and State: [address] [place] [address] Tel , Service support , ADDENDUM: 12/03/232133 IMPRESSION: Minor bibasilar atelectasis within the dependent portion of the lungs slightly more pronounced on the right in association with very small multi loculated pneumothorax secondary to minimally displaced acute fracture of the posterior right eighth rib N.B. : The above Results were Read Back by Leo Sullivan MD to BREANNE Méndez, and understanding confirmed on 12/03/2023 21:27:45 (ET). Electronically Signed: Leo Sullivan MD at 21:23 EST , Assessment & Plan Assessment/Plan (1) Pneumothorax: QUALIFIERS: Pneumothorax type: traumatic Encounter type: initial encounter Qualified Code(s): S27.0XXA - Traumatic pneumothorax, initial encounter (2) Right rib fracture: QUALIFIERS: Encounter type: initial encounter Rib fracture type: single rib Fracture type: closed Qualified Code(s): S22.31XA - Fracture of one rib, right side, initial encounter for closed fracture PLAN: Plan 1. Minimally displaced acute fracture of the Right posterior 8th rib with an ~10% Pneumothorax after a mechanical fall down 2 steps - Admit to general medical floor under observation status. Give Tylenol prn for [id number] (level 1-5/10) pain or fever. Give morphine IV prn for severe (level 6-10/10) pain. 2. Acute alcohol intoxication evidenced by blood alcohol concentration 119 mg/dL present on admission complicating #1 - Alcohol overuse will be strongly discouraged. Patient says she is not an alcoholic. Give multivitamin daily and give Ativan as needed for any signs of withdrawal should they develop. 3. DM-2; of unknown control on Metformin - ADA diet. FSBS q. AC/HS plus SSI. Check HgA1c. 3. History of tobacco abuse - Tobacco cessation will be strongly encouraged with nicotine patch offered to control cravings. 4. History of EtOH abuse - Noted. EtOH cessation will be strongly encouraged. 5. DVT prophylaxis - SCD's only after recent traumatic rib fracture due to fall potentially increasing risk of bleeding complications. Total time: Approximately 45 minutes. Charges/Coding Visit Charges OBSV E&M: [id number] Observ/hosp same date L1
[2023-12-03] MEDS: Morphine 4 MG/ML Syringe IV (23:23)
[2023-12-03 23:41] LABS: Amphetamine Urine VISTA NEGATIVE (<1000 ng/mL); Barbiturate Urine VISTA NEGATIVE (< 200 ng/mL); Benzodiazepine Urine VISTA NEGATIVE (< 200 ng/mL); Cocaine Urine VISTA NEGATIVE (< 300 ng/mL); Ecstacy Urine VISTA NEGATIVE (< 500 ng/mL); Methadone Urine VISTA NEGATIVE (< 300 ng/mL); PCP Urine VISTA NEGATIVE (< 25 ng/mL); THC Urine VISTA NEGATIVE (< 50 ng/mL); Vista UDS pH Range 5
[2023-12-04] VITALS (7 sets, daily range): BP systolic 93–129; BP diastolic 55–69; PULSE 64–76; RESP 14–20; TEMP 36.7–37.1; O2SAT 88–100; BMI 24.7
[2023-12-04] MEDS: 0.9% Normal Saline (1000mL) 1,000 ML 125 ML IV ×2 (01:13→08:33)
[2023-12-04] MEDS: Morphine 2 MG/ML Syringe IV ×2 (01:21→05:40)
--- NOTE | 2023-12-04 04:11 | CON.PCM.SX_ITS ---
Assessment & Plan Assessment/Plan (1) Pneumothorax: QUALIFIERS: Encounter type: initial encounter Pneumothorax type: traumatic Qualified Code(s): S27.0XXA - Traumatic pneumothorax, initial encounter (2) Right rib fracture: QUALIFIERS: Encounter type: initial encounter Fracture type: closed Rib fracture type: single rib Qualified Code(s): S22.31XA - Fracture of one rib, right side, initial encounter for closed fracture (3) Alcohol abuse: PLAN: Plan Discussed with patient would plan to check a chest x-ray in the morning if there is no increase in the pneumothorax is likely is unable to be seen currently on chest x-ray because it is so small. Would then let patient be DC'd home later in the morning. Discussed with patient that if she to had any respiratory issues and chest x-ray showed large PTX patient may need to have a chest tube placed at that time. And if that were not to able to control or resolve the situation there could be a chance for transfer to a tertiary care facility at a later time as well. Patient expressed understanding and had no further questions this time. Humaira Rodriguez M.D. Pager: [phone] [facility] [address] [place] [address], [facility], [address] [place] [address] Office: [phone] HPI Consult Data Date of Consult: 12/04/23 HPI Narrative Reason for Consultation: Very small right pneumothorax. HPI Narrative: NEREYDA العراقي, is a 48 F who presents status post fall down 2 steps while moy ing out recycling, no LOC. Patient CT of the chest which showed a very small pneumothorax less than 10% with very minimal displaced right posterior rib fracture. Patient states she fell on her right side and denies any loss of consciousness. Patient did states she had a couple glasses of wine tonight. Blood alcohol was 119. patient was 95% on room air in the ER. Currently she is on supplemental O2 due to the pneumothorax. [facility] Medical History Diabetes Home Medications metformin 500 mg tablet 1,000 mg PO DAILY 01/28/21 [History Last Taken Unknown] Allergy/AdvReac Type Severity Reaction Status Date / Time azithromycin Allergy Hives Verified 12/03/23 20:35 Surgical History History of cholecystectomy Social History Smoking Status: Current every day smoker tobacco type: cigarettes ROS Constitutional Constitutional: Denies anorexia Eyes Eyes: Denies blurry vision ENT HEENT: Denies dysphagia Cardiovascular Cardiovascular: Reports chest pain; Denies dyspnea Respiratory/Chest Respiratory/Chest: Denies cough, productive cough or shortness of breath at rest Gastrointestinal Gastrointestinal: Denies abdominal pain, bloating, nausea or vomiting Genitourinary Genitourinary: Denies dysuria Musculoskeletal Musculoskeletal: Denies joint swelling Integumentary Integumentary: Denies rash Neurologic Neurologic: Denies loss of vision Psychiatric Psychiatric: Denies anxiety or depression Hematologic/Lymphatic Hematologic/Lymphatic: Denies easy bleeding Physical Exam Const alert, oriented x3 and no apparent distress HEENT normocephalic and head/scalp atraumatic Chest Chest Narrative: Tender right lateral posterior ribs Resp normal respiratory effort and clear to auscultation bilaterally Cardio regular rate GI soft to palpation and non-tender; Negative for non-distended Palpation: Negative for guarding Extremity no clubbing, cyanosis or edema Neuro CN's II-XII intact bilaterally Psych mental status grossly normal Lab / Micro Data 12/04/23 03:59 12/04/23 03:59 Labs: Laboratory Results - last 24 hr 12/03/23 23:00: Ethyl Alcohol 119.0 12/03/23 23:20: Urine Opiates Screen NEGATIVE, Urine Methadone Screen NEGATIVE, Ur Barbiturates Screen NEGATIVE, Ur Phencyclidine Scrn NEGATIVE, Ur Amphetamines Screen NEGATIVE, MDMA (Ecstasy) Screen NEGATIVE, U Benzodiazepines Scrn NEGATIVE, Urine Cocaine Screen NEGATIVE, U Cannabinoids Screen NEGATIVE, Ur Drug Screen Comment Imaging Radiology Impression Chest CT 12/03/23 20:44 IMPRESSION: Minor bibasilar atelectasis within the dependent portion of the lungs slightly more pronounced on the right in association with very small multi loculated pneumothorax secondary to minimally displaced acute fracture of the posterior right eighth rib Electronically Signed: Leo Sullivan MD at 21:23 EST , ADDENDUM: 12/03/232133 IMPRESSION: Minor bibasilar atelectasis within the dependent portion of the lungs slightly more pronounced on the right in association with very small multi loculated pneumothorax secondary to minimally displaced acute fracture of the posterior right eighth rib N.B. : The above Results were Read Back by Leo Sullivan MD to BREANNE Méndez, and understanding confirmed on 12/03/2023 21:27:45 (ET). Electronically Signed: Leo Sullivan MD at 21:23 EST Reading Location ID and State: [address] [place] [address] Tel [phone], Service support , Charges/Coding Visit Charges Inpatient E&M: 79308 Init Hosp L3
[2023-12-04 04:22] LABS: Absolute Lymphocyte Count 3.87 X10^3/uL (0.83-4.51); Absolute Neutrophil Count 4.1 X10^3/uL (2.0-7.7); Basophil# 0.09 X10^3/uL; Eosinophil# 0.12 X10^3/uL; Eosinophils% 1.4 % (0-5); Hematocrit 39.4 % (37-47); Hemoglobin 13.3 g/dL (12.0-15.0); Lymphocyte # 3.87 X10^3/ul (0.83-4.51); Lymphocyte % 43.9 % (19-41); Mean Corp Hgb Conc 33.8 g/dL (32-36); Mean Corpuscular Hgb 34.8 pg (27.0-32.0); Mean Corpuscular Volume 103.1 fL (81-99); Mean Platelet Vol. 9.3 fl (6.2-12.0); Monocyte# 0.63 X10^3/uL; Monocyte% 7.2 % (0-10); NRBC Flagged by Analyzer 0 % (0-5); Neutrophil # 4.05 X10^3/uL (2.7-7.7); Neutrophil % 45.9 % (47-70); Platelet Count 198 K/mm3 (150-450); RBC Distribution Width SD 48.7 fl (35.1-43.9); Red Blood Count 3.82 M/mm3 (4.2-5.4); White Blood Count 8.8 K/mm3 (4.4-11.0)
[2023-12-04 04:39] LABS: Anion Gap 3 (5-15); BUN 9 mg/dL (7-18); BUN/Creat Ratio 14.4 RATIO (10-20); Calcium,Total 8.4 mg/dL (8.5-10.1); Chloride 110 mmol/L (98-107); Creatinine, Serum 0.63 mg/dL (0.55-1.02); EST Glomerular Filtration Rate 107 mL/min (>60); Est Glom Filt Rate - Afr Amer 129 mL/min (>60); Estimated Creatinine Clearance 103.89 ml/min; Glucose 145 mg/dL (74-106); Sodium Level 139 mmol/L (136-145)
[2023-12-04] MEDS: 0.9% Saline Lock 10 ML Syringe IV (05:40)
[2023-12-04] MEDS: Multivitamins,Therapeutic Tablet 1 TABLET PO (08:32)
[2023-12-04 08:47] LABS: Hemoglobin A1c 5.9 % (3.8-5.6)
--- NOTE | 2023-12-04 11:05 | RAD_ITS ---
STUDY: X-RAY CHEST REASON FOR EXAM: Female, 48 years old. Right PTX after fall TECHNIQUE: PA and lateral views of the chest. COMPARISON: CT of the chest dated December 03, 2023. FINDINGS: Recently seen tiny anteromedial right pneumothorax identified on the CT of the chest dated December 03, 2023 is not seen by x-ray. Linear atelectasis or scarring is present in the bilateral lower lobes. There is no visualized consolidation or pulmonary edema or pneumothorax. A trace right lower lobe pleural effusion is present. No visualized displaced rib fractures. Normal size heart. Normal mediastinum and alex. Normal visualized pulmonary arteries. Normal visualized aortic arch and descending thoracic aorta. Normal visualized thoracic spine. Normal visualized ribs, clavicles, and shoulders. There is no demonstrated abnormality of the visualized soft tissue structures of the upper abdomen. RAD/Chest PA and Lateral IMPRESSION: 1. Recently seen tiny anteromedial right pneumothorax identified on the CT of the chest dated December 03, 2023 is not seen by x-ray. Electronically Signed: Ian Grant MD at 12:35 EST ,
--- NOTE | 2023-12-04 13:04 | DCINST_ITS ---
Discharge Instructions Diet Discharge Diet: Carb Control Diet Activity Discharge Activity: Return to Normal Activity Dressing / Incision Call your doctor if you observe: Fever of 101 or Higher, Shortness of breath, Dizziness, Fainting spells, Swelling in the ankles, Chest pain and Increased palpitations (irregular heartbeat) Follow Up Care Test Results: Test results from this visit will be discussed in further detail at your follow- up appointment, if applicable. Discharge Plan Admission Admit Date/Time: 12/03/23 22:37 Attending Provider: Geovanny Rosenthal Primary Care Provider: Sofia Acevedo Consulting Providers: Buzz Reyes Discharge Orders/Prescriptions Prescriptions: New oxycodone-acetaminophen [Percocet] 5-325 mg tablet 1 tab PO Q6H PRN (Reason: pain) 3 Days Qty: 10 0RF Continued metformin 500 MG tablet 1,000 mg PO DAILY Referrals / Follow Up: Sofia Acevedo MD [Primary Care Provider] - Within 1 Week Disposition Disposition (needs filled in before D/C Order can be placed): Home, Self Care
--- NOTE | 2023-12-04 13:08 | PCM.DC.SUM ---
Providers Date of Admission: 12/03/23 Primary Care Physician: Dr. Sofia Acevedo MD Reason For Visit: FALL WITH RIGHT 8TH RIB FX AND SMALL PTX Diagnosis Discharge Diagnosis (1) Pneumothorax: Status: Acute Code(s): J93.9 - Pneumothorax, unspecified Qualifiers: Pneumothorax type: traumatic Encounter type: initial encounter Qualified Code(s): S27.0XXA - Traumatic pneumothorax, initial encounter (2) Right rib fracture: Status: Acute Code(s): S22.31XA - Fracture of one rib, right side, initial encounter for closed fracture Qualifiers: Encounter type: initial encounter Rib fracture type: single rib Fracture type: closed Qualified Code(s): S22.31XA - Fracture of one rib, right side, initial encounter for closed fracture (3) Alcohol abuse: Status: Acute Code(s): F10.10 - Alcohol abuse, uncomplicated Medications at Discharge Home Medications metformin 500 mg tablet 1,000 mg PO DAILY 01/28/21 oxycodone-acetaminophen 5 mg-325 mg tablet (Percocet) 1 tab PO Q6H PRN pain 3 days #10 tabs 12/04/23 Hospital Course Operations None Procedures None Summary of Care Provided Minutes Spent on Discharge: 33 Hospital Course: Per HPI: NEREYDA العراقي, is a 48 F with a past medical history of DM-2; of unknown control on Metformin, history of cholecystectomy, history of tobacco abuse and history of EtOH abuse who presents to [facility] ER complaining fall onto her Right rib cage. Ms. العراقي reports her symptoms began approximately one hour prior to arrival when she slipped and fell down 2 steps and then landing onto her Right rib cage. She then crawled to ask her for help who then brought her in for further evaluation and treatment. She denies associated head injury, fever, chills, nausea or vomiting but she does admit to diffuse pain over her Right rib cage with CT of the chest in the ER revealing a minimally displaced acute fracture of the Right posterior 8th rib with an ~10% Pneumothorax with oxygen saturation of 97% on RA and with pain improved after ibuprofen and [place] with general surgeon recommending patient be observed overnight with patient noted to have a blood alcohol concentration of 119 mg/dL present on admission consistent with acute alcohol intoxication which likely greatly contributed to her fall. She was then admitted to the general medical floor under observation status for ongoing care for a stay that is expected to be less than 48 hours. Hospital Course: 1. Right posterior eighth rib fracture with pneumothorax?48-year-old female presented to the hospital after mechanical fall with right-sided chest pain in the back. She was found to have 8th rib fracture on the right with a 10% pneumothorax seen on CT scan. She was not hypoxic so it was elected to monitor and only intervene if it got bigger. This morning a repeat chest x-ray did not show any further pneumothorax so I discussed with her the plan for discharge today she expressed understanding the risk benefits going home and would like to go home today. Will give her 3 days worth of Percocet to help with the pain and have her follow-up with her PCP as an outpatient. She did have an elevated blood alcohol level so that is thought to have played a role in her fall. Will also send her home with incentive spirometer. 2. Type 2 diabetes with chronic medical condition which complicate her care. Her home medications were continued where appropriate Physical Exam Narrative General: Alert, Oriented x3, Cooperative, No apparent distress HEENT: Atraumatic, PERRLA, EOMI, Normocephalic Oral: Moist Mucosa Neck: Supple, No JVD Lungs: Diminished, Normal air movement, No rhonchi, No wheeze, No rales Cardiovascular: Regular rate, Regular Rhythm, Normal S1, Normal S2, No murmurs Abdomen: Soft, Non Tender, Non-Distended, No Hepato-splenomegaly Extremities: No edema, Capillary Refill Less than 3 Seconds Skin: No rashes, No breakdown Musculoskeletal: No Tenderness to Palpation of Joints or Extremities Neurological: No focal neurological deficits, Motor Exam 5/5 strength throughout, Sensory exam intact to light touch and pain Psych/Mental Status: Normal Affect, Appropriate Weight / BMI Weight Weight: 158 lb 4.67 oz Body Mass Index (BMI) 24.7 ABG / Lab / Microbiology Data 12/04/23 03:59 12/04/23 03:59 Laboratory: Laboratory Results - last 24 hr 12/03/23 23:00: Ethyl Alcohol 119.0 12/03/23 23:20: Urine Opiates Screen NEGATIVE, Urine Methadone Screen NEGATIVE, Ur Barbiturates Screen NEGATIVE, Ur Phencyclidine Scrn NEGATIVE, Ur Amphetamines Screen NEGATIVE, MDMA (Ecstasy) Screen NEGATIVE, U Benzodiazepines Scrn NEGATIVE, Urine Cocaine Screen NEGATIVE, U Cannabinoids Screen NEGATIVE, Ur Drug Screen Comment 12/04/23 03:59: WBC 8.8, RBC 3.82 L, Hgb 13.3, Hct 39.4, MCV 103.1 H, MCH 34.8 H, MCHC 33.8, RDW Std Deviation 48.7 H, RDW Coeff of [place] 13.0, Plt Count 198, MPV 9.3, Immature Gran % (Auto) 0.600, Neut % (Auto) 45.9 L, Lymph % (Auto) 43.9 H, [place] % (Auto) 7.2, Eos % (Auto) 1.4, Baso % (Auto) 1.0, Absolute Neuts (auto) 4.1, Absolute Lymphs (auto) 3.87, Nucleated RBC % 0, Sodium 139, Potassium 4.0, Chloride 110 H, Carbon Dioxide 26.0, Anion Gap 3 L, BUN 9, Creatinine 0.63, Estim Creat Clear Calc 103.89, Est GFR (MDRD) Af Amer 129, Est GFR (MDRD) Non-Af 107, BUN/Creatinine Ratio 14.4, Glucose 145 H, Hemoglobin A1c 5.9 H, Calcium 8.4 L, TSH 1.30 Radiography Diagnostic Testing: Radiology Impression Chest CT 12/03/23 20:44 IMPRESSION: Minor bibasilar atelectasis within the dependent portion of the lungs slightly more pronounced on the right in association with very small multi loculated pneumothorax secondary to minimally displaced acute fracture of the posterior right eighth rib Electronically Signed: Leo Sullivan MD at 21:23 EST Reading Location ID and State: [address] [place] [address] Tel , Service support , ADDENDUM: 12/03/230 IMPRESSION: Minor bibasilar atelectasis within the dependent portion of the lungs slightly more pronounced on the right in association with very small multi loculated pneumothorax secondary to minimally displaced acute fracture of the posterior right eighth rib N.B. : The above Results were Read Back by Leo Sullivan MD to BREANNE Méndez, and understanding confirmed on 12/03/2023 21:27:45 (ET). Electronically Signed: Leo Sullivan MD at 21:23 EST , Chest X-Ray 12/04/23 11:05 IMPRESSION: 1. Recently seen tiny anteromedial right pneumothorax identified on the CT of the chest dated December 03, 2023 is not seen by x-ray. Electronically Signed: Ian Grant MD at 12:35 EST , D/C Instructions Discharge Diet: Carb Control Diet Call your doctor if you observe: Fever of 101 or Higher, Shortness of breath, Dizziness, Fainting spells, Swelling in the ankles, Chest pain and Increased palpitations (irregular heartbeat) Meaningful Use Info Meaningful Use Diagnoses (Choose all that apply): None applicable Discharge Plan Admission Admit Date/Time: 12/03/23 22:37 Attending Provider: Geovanny Rosenthal Primary Care Provider: Sofia Acevedo Consulting Providers: Buzz Reyes Discharge Orders/Prescriptions Prescriptions: New oxycodone-acetaminophen [Percocet] 5-325 mg tablet 1 tab PO Q6H PRN (Reason: pain) 3 Days Qty: 10 0RF Continued metformin 500 MG tablet 1,000 mg PO DAILY Referrals / Follow Up: Sofia Acevedo MD [Primary Care Provider] - Within 1 Week Disposition Disposition (needs filled in before D/C Order can be placed): Home, Self Care Charges/Coding Visit Charges Inpatient E&M: 94219 Disch Hosp >30min
--- NOTE | 2023-12-04 13:20 | CASEMGMT ---
RN CM Consult: This RN CM met with pt face to face. Pt alert, oriented and agreeable to questions from this RN CM. Pt states she is independent at baseline with ADLs and IADLs. Pt states her spouse will be able to assist her if needed. Pt has prescription coverage and verified PCP as Dr. Mayorga. Pt denies any discharge needs or concerns at this time. Plan: Home with spouse support. Deena Babin RN ACM
== END 2023-12-04 13:07 | disposition home or self-care (01) ==
LOC: ED 22:37 → PCU 23:05
PROVIDERS: Admitting Provider Internal Medicine; Emergency Provider Emergency Medicine; PCP Internal Medicine; Visit Provider Family Medicine
DX: S22.31XA Fracture of one rib, right side, initial encounter for closed fracture (principal); F10.120 Alcohol abuse with intoxication, uncomplicated; E11.9 Type 2 diabetes mellitus without complications; S27.0XXA Traumatic pneumothorax, initial encounter; F17.210 Nicotine dependence, cigarettes, uncomplicated; Z79.84 Long term (current) use of oral hypoglycemic drugs; W10.9XXA Fall (on) (from) unspecified stairs and steps, initial encounter; Y93.89 Activity, other specified; Y90.5 Blood alcohol level of 100-119 mg/100 ml
CPT/HCPCS: 71046; 71250; 80048; 80307; 80320; 83036; 84443; 85025; 96361; 96374; 96376; 99221; 99285; J7030; A4216; G0378; G0480

== ENCOUNTER 2024-08-07 11:03 | Emergency (ER) | payer MEDICAID, SELFPAY ==
[2024-08-07 11:04] VITALS: BP 140/80; PULSE 84; RESP 16; TEMP 36.8; O2SAT 98; BMI 24.3
--- NOTE | 2024-08-07 12:28 | EDS_ITS ---
HPI HPI - GI History of Present Illness Chief Complaint: Foreign Body Informant: patient Abdominal Pain/Flank Pain Onset: Yesterday Context: Sudden Onset Timing: Continuous Quality: Sharp Location: - (Throat) Worsened by: Nothing Relieved by: Nothing Nausea/Vomiting/Emesis GI Symptom: Negative for Nausea or Vomiting Diarrhea/Melena/Hematochezia GI Symptom: Negative for Diarrhea, Melena or Hematochezia Associated Symptoms Associated Symptoms: Negative for Dysuria, Frequency or Hematuria Narrative Narrative: Patient presents with esophageal food impaction that occurred last night. Patient states that it felt like something got stuck into her throat. Patient describes her pain as sharp. Patient states it is localized to her throat. Patient states she is able to swallow liquids but has not tried to swallow any breads or crackers. Patient denies any chest pain or shortness of breath. P atient does admit to a mild headache. Patient denies any nausea or vomiting. Patient denies any fevers or chills. PFSH PFS Medical History (Updated 08/07/24 @ 14:[address] Juan Zamora DO) Diabetes Home Medications ?Medication ?Instructions ?Recorded ?Last Taken ?Type metformin 500 mg tablet 1,000 mg PO DAILY diabetes 01/28/21 Unknown History oxycodone-acetaminophen 5 mg-325 1 tab PO Q6H PRN pain 3 days #10 12/04/23 Unknown Rx mg tablet (Percocet) tabs Allergy/AdvReac Type Severity Reaction Status Date / Time azithromycin Allergy Hives Verified 08/07/24 11:04 Surgical History (Updated 08/07/24 @ 14:[address] Juan Zamora DO) Hx of tubal ligation History of cholecystectomy Social History Smoking Status: Current every day smoker tobacco type: cigarettes ROS ROS ED Constitutional Constitutional ED: Denies chills or fever(s) Eyes Eyes: Denies blurry vision or change in vision ENT ENT ED: Reports sore throat; Denies rhinorrhea Cardiovascular Cardiovascular: Denies chest pain or palpitations Respiratory/Chest Respiratory/Chest: Denies cough or dyspnea Gastrointestinal Gastrointestinal: Denies nausea or vomiting Genitourinary Genitourinary ED: Denies dysuria or hematuria Musculoskeletal Musculoskeletal: Reports neck pain; Denies back pain Integumentary Denies abscess or rash Neurologic Neurologic: Reports headache(s); Denies weakness Allergic/Immunologic Allergic/Immunologic ED: Denies mouth swelling or urticaria EXAM Physical Exam Const Vital Signs: 08/07/24 11:04 08/07/24 11:06 Temperature 98.2 F Temperature Source Oral Pulse Rate 84 Respiratory Rate 16 Respiratory Effort Normal Respiratory Pattern Normal Blood Pressure 140/80 H Blood Pressure Mean 100 Pulse Ox 98 Oxygen Delivery Method Room Air Positive well nourished and well developed General Appearance ED: well developed and NAD HEENT Reports moist mucous membranes Neck supple and no JVD Resp normal respiratory effort and clear to auscultation bilaterally Cardio regular rate and regular rhythm GI non-tender and non-distended Palpation: soft Extremity full ROM Neuro CN's II-XII intact bilaterally, moves all extremities, no sensory deficits noted and gait normal Sensorium / Orientation: alert Motor Exam: strength 5/5 throughout Psych mental status grossly normal and thought process normal MDM MDM MDM Narrative Medical decision making narrative: Patient was given a dose of glucagon here. Patient states that she was able to swallow soda after this. Patient was able to eat crackers without difficulty. Patient felt better on reevaluation. Patient was instructed to follow-up with her primary care physician in 5 to 7 days. Patient was instructed to return if worse in any way. Patient understood and was agreeable with the plan. All questions were answered. Discharge Plan Triage Chief Complaint: Foreign Body ED Provider: Juan Zamora Dx/Rx/DC Orders Clinical Impression: Food impaction of esophagus, Type 2 diabetes mellitus Instructions: ED Esophageal Foreign Body, Resolved Prescriptions: No Action metformin 500 MG tablet 1,000 mg PO DAILY oxycodone-acetaminophen [Percocet] 5-325 mg tablet 1 tab PO Q6H PRN (Reason: pain) 3 Days Qty: 10 0RF Primary Care Provider: Sofia Acevedo Referrals: Sofia Acevedo MD [Primary Care Provider] - 5-7 Days Print Language: Tamazight Disposition Disposition: Home, Self Care
[2024-08-07 13:06] VITALS: BP 134/78; PULSE 78; RESP 16; O2SAT 98
[2024-08-07] MEDS: Glucagon 1 MG/ML Syringe IV (13:10)
[2024-08-07 14:24] VITALS: BP 134/78; PULSE 78; RESP 16; TEMP 36.6; O2SAT 99
== END 2024-08-07 14:25 | disposition home or self-care (01) ==
PROVIDERS: Emergency Provider Emergency Medicine; PCP Internal Medicine; Visit Provider Emergency Medicine
DX: T18.128A Food in esophagus causing other injury, initial encounter (principal); E11.9 Type 2 diabetes mellitus without complications; W44.F3XA Food entering into or through a natural orifice, initial encounter; R51.9 Headache, unspecified; F17.210 Nicotine dependence, cigarettes, uncomplicated; Z79.84 Long term (current) use of oral hypoglycemic drugs
CPT/HCPCS: 96374; 99283; A4216; J1610